=== PATIENT | female | born 1945 | race Two or more races ===

== ENCOUNTER 2018-06-17 13:40 | Emergency (ER) | payer MEDICARE, MEDICAID ==
--- NOTE | 2018-06-17 15:46 | EDM.PDOC ---
ED HPI GENERAL MEDICAL PROBLEM - General Chief Complaint: Lower Extremity Injury/Pain Stated Complaint: LEFT LEG PAIN Time Seen by Provider: 06/17/18 13:55 Source of Information: Reports: Patient History Limitations: Reports: No Limitations - History of Present Illness INITIAL COMMENTS - FREE TEXT/NARRATIVE: c/o L knee pain slipped on ice, able to walk, has pain at patella and lateral joint line pt declined long leg immobilizer of crutches XR with no fx, osteoporosis present PE unremarkable lives with daughter who is gone working during day, grandchildren at school during the day has had other falls in the past labs 03/11 at baseline no other c/o L knee pain Left Knee Pain Score (Numeric/FACES): 10 - Related Data Allergies Allergy/AdvReac Type Severity Reaction Status Date / Time No Known Allergies Allergy Verified 06/17/18 13:46 Home Meds: Home Meds Benzonatate [Tessalon Perle] 100 mg PO TID PRN 03/01/18 [History] Insulin Glarg,Human.Rec.Analog [Lantus] 40 units SQ BEDTIME 03/01/18 [History] Acetaminophen [Tylenol Extra Strength] 500 mg PO ASDIRECTED PRN 03/02/18 [ History] Aspirin [Halfprin] 81 mg PO DAILY 03/02/18 [History] Lisinopril 20 mg PO DAILY 03/02/18 [History] Pregabalin [Lyrica] 150 mg PO DAILY 03/02/18 [History] Pregabalin [Lyrica] 150 mg PO DAILY PRN 03/02/18 [History] traMADol [Ultram] 50 mg PO DAILY PRN 03/02/18 [History] Past Medical History Cardiovascular History: Reports: Hypertension Genitourinary History: Reports: Chronic Renal Insuffiency, Renal Calculus Musculoskeletal History: Reports: Back Pain, Chronic, Osteoarthritis Neurological History: Reports: Neuropathy, Peripheral, Other (See Below) Psychiatric History: Reports: Depression Endocrine/Metabolic History: Reports: Diabetes, Type II - Past Surgical History GI Surgical History: Reports: Cholecystectomy Social & Family History - Family History Family Medical History: Noncontributory - Tobacco Use Smoking Status *Q: Never Smoker - Caffeine Use Caffeine Use: Reports: Coffee Other Caffeine Use: 2-3 cups daily - Recreational Drug Use Recreational Drug Use: No Review of Systems - Review of Systems Review Of Systems: See Below Constitutional: Reports: No Symptoms Eyes: Reports: No Symptoms Ears: Reports: No Symptoms Nose: Reports: No Symptoms Mouth/Throat: Reports: No Symptoms Respiratory: Reports: No Symptoms Cardiovascular: Reports: No Symptoms GI/Abdominal: Reports: No Symptoms Genitourinary: Reports: No Symptoms Musculoskeletal: Reports: Other (L knee pain) Skin: Reports: No Symptoms Neurological: Reports: No Symptoms Psychiatric: Reports: No Symptoms ED EXAM, GENERAL - Physical Exam Exam: See Below Exam Limited By: No Limitations General Appearance: Alert, WD/WN, No Apparent Distress Eye Exam: Bilateral Eye: Normal Inspection Nose: Normal Inspection, Normal Mucosa, No Blood Throat/Mouth: Normal Inspection, Normal Lips, Normal Voice Respiratory/Chest: No Respiratory Distress Cardiovascular: Regular Rate, Rhythm Extremities: Other (L knee with mild tender over patella and laterally over joint line, did appear to be tender over insertion of LCL or MCL, no effusion, no ecchymosis, no STS, XR neg) Neurological: Alert, Oriented, CN II-XII Intact, Normal Cognition, No Motor/ Sensory Deficits Psychiatric: Normal Affect, Normal Mood Skin Exam: Warm, Dry, Intact, Normal Color, No Rash Lymphatic: No Adenopathy Course - Vital Signs Last Recorded V/S: Last Vital Signs Temp 36.3 C 06/17/18 13:48 Pulse 65 06/17/18 13:48 Resp 14 06/17/18 13:48 BP 150/62 H 06/17/18 13:48 Pulse Ox 100 06/17/18 13:48 - Orders/Labs/Meds Orders: Active Orders 24 hr Category Date Time Status Knee 3V Lt [CR] Stat Exams 06/17/18 13:42 Taken - Re-Assessments/Exams Free Text/Narrative Re-Assessment/Exam: 06/17/18 15:56 pt has a rolling walker at home, pt declined knee immobilizer initially, then agreed to do so at insistence of daughter, agrees to see ortho Dr Roque in 4 days, 6" Moises already applied, may use immobilizer over Moises, must use immobilizer when out of bed, pt understands Departure - Departure Time of Disposition: 15:41 Disposition: Home, Self-Care 01 Condition: Good Clinical Impression: Contusion of left knee, Left knee sprain - Discharge Information *PRESCRIPTION DRUG MONITORING PROGRAM REVIEWED*: Not Applicable *COPY OF PRESCRIPTION DRUG MONITORING REPORT IN PATIENT KEON: Not Applicable Instructions: Contusion, Knee Sprain, Adult Referrals: Ritika Wright NP [Primary Care Provider] - Additional Instructions: For pain and inflammation, take acetaminophen 500 mg 2 tas 4 times a day for 5 days. Use ice for 15 minutes 4 times a day for 2 days. Use Moises wrap to support knee when out of bed. Use a walker or a cane for 5 days to allow it to heal and to decrease risk of falling. See your doctor in 4 days. Return to ED if feeling worse. - My Orders Last 24 Hours: My Active Orders 06/17/18 13:42 Knee 3V Lt [CR] Stat - Assessment/Plan Last 24 Hours: My Active Orders 06/17/18 13:42 Knee 3V Lt [CR] Stat
--- NOTE | 2018-06-18 08:09 | CR ---
INDICATION: Fell on ice. Left knee pain. LEFT KNEE: Three views of the left knee revealed mild hypertrophic degenerative changes at the intercondylar spines medially off the femur and tibia and also at the patellofemoral joint. Patellofemoral joint space was not well delineated on the sunrise view but appear to be normal on the lateral view. Patellofemoral joint spaces appear to be normal as visualized. There is also noted a spur off the cranial anterior aspect of the patella of small size. An acute fracture, dislocation or other acute bone or joint abnormality was not identified. IMPRESSION: 1. No acute fracture or dislocation. 2. Osteoarthritis. MTDD
== END 2018-06-17 16:13 | disposition home or self-care (01) ==
LOC: FB.ED 13:40
DX: S83.92XA Sprain of unspecified site of left knee, initial encounter (principal); S80.02XA Contusion of left knee, initial encounter; I12.9 Hypertensive chronic kidney disease with stage 1 through stage 4 chronic kidney disease, or unspecified chronic kidney disease; N18.9 Chronic kidney disease, unspecified; E11.9 Type 2 diabetes mellitus without complications; W00.0XXA Fall on same level due to ice and snow, initial encounter; Z79.4 Long term (current) use of insulin; Z79.899 Other long term (current) drug therapy
CPT/HCPCS: 73562-LT; 99283

== ENCOUNTER 2018-08-01 12:28 | Emergency (ER) | payer MEDICARE, MEDICAID ==
[2018-08-01] MEDS ORDERED: Acetaminophen 325 MG Tab PO STA (12:50)
--- NOTE | 2018-08-01 12:55 | EDM.PDOC ---
ED HPI GENERAL MEDICAL PROBLEM - General Chief Complaint: Respiratory Problem Time Seen by Provider: 08/01/18 12:30 Source of Information: Reports: Patient, Family History Limitations: Reports: Physical Impairment - History of Present Illness INITIAL COMMENTS - FREE TEXT/NARRATIVE: 72 y.o. female came to the ed with her daughter due to a fever of 103 and nasal congestion and gen weakness. Occ cough, chronic abd. discomfort. Pt has sedentary live style. No C/P No N/Vd or any other acute medical issue. 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 - Related Data Allergies Allergy/AdvReac Type Severity Reaction Status Date / Time No Known Allergies Allergy Verified 06/17/18 13:46 Home Meds: Home Meds Benzonatate [Tessalon Perle] 100 mg PO TID PRN 03/01/18 [History] Insulin Glarg,Human.Rec.Analog [Lantus] 40 units SQ BEDTIME 03/01/18 [History] Acetaminophen [Tylenol Extra Strength] 500 mg PO ASDIRECTED PRN 03/02/18 [ History] Aspirin [Halfprin] 81 mg PO DAILY 03/02/18 [History] Lisinopril 20 mg PO DAILY 03/02/18 [History] Pregabalin [Lyrica] 150 mg PO DAILY 03/02/18 [History] Pregabalin [Lyrica] 150 mg PO DAILY PRN 03/02/18 [History] traMADol [Ultram] 50 mg PO DAILY PRN 03/02/18 [History] Oseltamivir [Tamiflu] 75 mg PO BID #10 cap 08/01/18 [Rx] Past Medical History Cardiovascular History: Reports: Hypertension Genitourinary History: Reports: Chronic Renal Insuffiency, Renal Calculus Musculoskeletal History: Reports: Back Pain, Chronic, Osteoarthritis Neurological History: Reports: Neuropathy, Peripheral, Other (See Below) Psychiatric History: Reports: Depression Endocrine/Metabolic History: Reports: Diabetes, Type II - Past Surgical History GI Surgical History: Reports: Cholecystectomy Social & Family History - Family History Family Medical History: Noncontributory - Caffeine Use Caffeine Use: Reports: Coffee Other Caffeine Use: 2-3 cups daily ED ROS GENERAL - Review of Systems Review Of Systems: Unable To Obtain ED EXAM, GENERAL - Physical Exam Exam: See Below Exam Limited By: Physical Impairment General Appearance: Alert, Mild Distress, Obese Eye Exam: Bilateral Eye: Normal Inspection Ears: Normal External Exam Ear Exam: Bilateral Ear: Auricle Normal Nose: Normal Inspection Throat/Mouth: Normal Lips, Normal Voice, No Airway Compromise Head: Atraumatic, Normocephalic Neck: Normal Inspection, Supple, Non-Tender, Full Range of Motion Respiratory/Chest: No Respiratory Distress, Decreased Breath Sounds Cardiovascular: Normal Peripheral Pulses, Regular Rate, Rhythm, No Edema Peripheral Pulses: 2+: Brachial (L) GI/Abdominal: Normal Bowel Sounds, Soft, Non-Tender, No Organomegaly, No Mass, Pelvis Stable (Female) Exam: Deferred Rectal (Female) Exam: Deferred Neurological: Alert, Oriented, CN II-XII Intact Psychiatric: Normal Affect, Normal Mood Skin Exam: Warm, Dry, Intact, Normal Color, No Rash Lymphatic: No Adenopathy Course - Vital Signs Text/Narrative:: 72 y.o. female came to the ed with her daughter due to a fever of 103 and nasal congestion and gen weakness. Occ cough, chronic abd. discomfort. Pt has sedentary live style. No C/P No N/Vd or any other acute medical issue. BP 152/64 Temp 38.1 RR 16 Pulse ox 93% on RA Pulse 93 PE: Obese 72 y.o female with a running nose and cold symptoms Labs: CBC, BMP Bl except HGN 10.6 Cr. 1.6 BUN 24 GFR 32 Influenza A pos, UA neg for UTI Impression: Viral syndrome, Influenza A pos Tx: Tamiflu. Duoneb, Tylenol Reexam: Improved Plan: D/C with instructions Last Recorded V/S: Last Vital Signs Temp 38.2 C H 08/01/18 12:30 Pulse 93 08/01/18 12:30 Resp 16 08/01/18 12:30 BP 152/64 H 08/01/18 12:30 Pulse Ox 93 L 08/01/18 12:30 - Orders/Labs/Meds Orders: Active Orders 24 hr Category Date Time Status RT Aerosol Therapy [RC] ASDIRECTED Care 08/01/18 12:56 Active Chest 1V Frontal [CR] Stat Exams 08/01/18 12:50 Taken CULTURE STREP A CONFIRMATION [] Stat Lab 08/01/18 12:50 Ordered INFLUENZA A+B AG SCREEN [RM] Stat Lab 08/01/18 12:50 Ordered STREP SCRN A RAPID W CULT CONF [] Stat Lab 08/01/18 12:50 Ordered Labs: Laboratory Tests 08/01/18 08/01/18 08/01/18 Range/Units 12:50 13:05 13:05 WBC 7.2 (4.5-12.0) X10-3/uL RBC 3.75 (3.23-5.20) x10(6)uL Hgb 10.6 L (11.5-15.5) g/dL Hct 31.2 (30.0-51.3) % MCV 83.1 (80-96) fL MCH 28.2 (27.7-33.6) pg MCHC 34.0 (32.2-35.4) g/dL RDW 13.1 (11.5-15.5) % Plt Count 226 (125-369) X10(3)uL MPV 9.1 (7.4-10.4) fL Add Manual Diff Yes Neutrophils % (Manual) 79 (46-82) % Lymphocytes % (Manual) 7 L (13-37) % Monocytes % (Manual) 14 H (4-12) % Sodium 136 (135-145) mmol/L Potassium 4.5 (3.5-5.3) mmol/L Chloride 102 D (100-110) mmol/L Carbon Dioxide 25 (21-32) mmol/L BUN 21 H (7-18) mg/dL Creatinine 1.6 H (0.55-1.02) mg/dL Est Cr Clr Drug Dosing TNP Estimated GFR (MDRD) 32 L (>60) BUN/Creatinine Ratio 13.1 (9-20) Glucose 73 L (80-116) mg/dL Lactic Acid (0.4-2.2) mmol/L Calcium 8.7 (8.6-10.2) mg/dL Urine Color Yellow (YELLOW) Urine Appearance Slightly cloudy (CLEAR) Urine pH 6.0 (5.0-6.5) Ur Specific [place] 1.015 (1.010-1.025) Urine Protein 30 H (NEGATIVE) mg/dL Urine Glucose (UA) Normal (NORMAL) mg/dL Urine Ketones Negative (NEGATIVE) mg/dL Urine Occult Blood Moderate H (NEGATIVE) Urine Nitrite Negative (NEGATIVE) Urine Bilirubin Negative (NEGATIVE) Urine Urobilinogen Normal (NEGATIVE) mg/dL Ur Leukocyte Esterase Negative (NEGATIVE) Urine RBC 0-5 (0-5) Urine WBC 0-5 (0-5) Ur Squamous Epith Cells Few H (NS,R,O) Urine Bacteria Moderate H (NS) 08/01/18 Range/Units 13:05 WBC (4.5-12.0) X10-3/uL RBC (3.23-5.20) x10(6)uL Hgb (11.5-15.5) g/dL Hct (30.0-51.3) % MCV (80-96) fL MCH (27.7-33.6) pg MCHC (32.2-35.4) g/dL RDW (11.5-15.5) % Plt Count (125-369) X10(3)uL MPV (7.4-10.4) fL Add Manual Diff Neutrophils % (Manual) (46-82) % Lymphocytes % (Manual) (13-37) % Monocytes % (Manual) (4-12) % Sodium (135-145) mmol/L Potassium (3.5-5.3) mmol/L Chloride (100-110) mmol/L Carbon Dioxide (21-32) mmol/L BUN (7-18) mg/dL Creatinine (0.55-1.02) mg/dL Est Cr Clr Drug Dosing Estimated GFR (MDRD) (>60) BUN/Creatinine Ratio (9-20) Glucose (80-116) mg/dL Lactic Acid 0.6 (0.4-2.2) mmol/L Calcium (8.6-10.2) mg/dL Urine Color (YELLOW) Urine Appearance (CLEAR) Urine pH (5.0-6.5) Ur Specific [place] (1.010-1.025) Urine Protein (NEGATIVE) mg/dL Urine Glucose (UA) (NORMAL) mg/dL Urine Ketones (NEGATIVE) mg/dL Urine Occult Blood (NEGATIVE) Urine Nitrite (NEGATIVE) Urine Bilirubin (NEGATIVE) Urine Urobilinogen (NEGATIVE) mg/dL Ur Leukocyte Esterase (NEGATIVE) Urine RBC (0-5) Urine WBC (0-5) Ur Squamous Epith Cells (NS,R,O) Urine Bacteria (NS) Meds: Medications Discontinued Medications Generic Name Dose Route Start Last Admin Trade Name Patricq PRN Reason Stop Dose Admin Acetaminophen 650 mg 08/01/18 12:50 Tylenol PO 08/01/18 12:51 BEDTIME STA Acetaminophen 650 mg 08/01/18 13:06 08/01/18 13:09 Tylenol PO 08/01/18 13:07 650 mg NOW ONE Administration Albuterol/Ipratropium 3 ml 08/01/18 12:56 08/01/18 12:59 Duoneb 3.0-0.5 Mg/3 Ml NEB 08/01/18 12:57 3 ml ONETIME STA Administration Oseltamivir Phosphate 75 mg 08/01/18 13:53 08/01/18 14:00 Tamiflu PO 08/01/18 13:54 75 mg ONETIME ONE Administration Departure - Departure Time of Disposition: 14:22 Disposition: Home, Self-Care 01 Condition: Good Clinical Impression: Influenza A - Discharge Information Prescriptions: Oseltamivir [Tamiflu] 75 mg PO BID #10 cap Instructions: Influenza, Adult, [id number] Referrals: Ritika Wright NP [Primary Care Provider] - Forms: ED Department Discharge Additional Instructions: Please take Tamiflu as recommended, please follow, come back if your symptoms get worse acutely. - My Orders Last 24 Hours: My Active Orders 08/01/18 12:50 Chest 1V Frontal [CR] Stat CULTURE STREP A CONFIRMATION [RM] Stat INFLUENZA A+B AG SCREEN [RM] Stat STREP SCRN A RAPID W CULT CONF [RM] Stat 08/01/18 12:56 RT Aerosol Therapy [RC] ASDIRECTED - Assessment/Plan Last 24 Hours: My Active Orders 08/01/18 12:50 Chest 1V Frontal [CR] Stat CULTURE STREP A CONFIRMATION [RM] Stat INFLUENZA A+B AG SCREEN [RM] Stat STREP SCRN A RAPID W CULT CONF [RM] Stat 08/01/18 12:56 RT Aerosol Therapy [RC] ASDIRECTED
[2018-08-01] MEDS ORDERED: Albuterol/Ipratropium 3.0-0.5 MG/3 ML Neb Soln NEB STA (12:56)
[2018-08-01] MEDS ORDERED: Acetaminophen 325 MG Tab PO ONE (13:06)
[2018-08-01] MEDS ORDERED: Oseltamivir 75 MG Cap PO ONE (13:53)
== END 2018-08-01 14:30 | disposition home or self-care (01) ==
LOC: FB.ED 12:28
DX: J10.1 Influenza due to other identified influenza virus with other respiratory manifestations (principal); I12.9 Hypertensive chronic kidney disease with stage 1 through stage 4 chronic kidney disease, or unspecified chronic kidney disease; E11.22 Type 2 diabetes mellitus with diabetic chronic kidney disease; N18.9 Chronic kidney disease, unspecified; Z79.4 Long term (current) use of insulin; Z79.899 Other long term (current) drug therapy
CPT/HCPCS: 36415; 71045; 80048; 81001; 83605; 85025; 87081; 87804; 87880; 99283; A9270; J7620-GY

== ENCOUNTER 2018-11-10 12:24 | Emergency (ER) | payer MEDICARE, MEDICAID ==
[2018-11-10] MEDS ORDERED: Ketorolac 30 MG/ML SDV IM ONE (12:41)
--- NOTE | 2018-11-10 12:47 | EDM.PDOC ---
ED HPI GENERAL MEDICAL PROBLEM - General Chief Complaint: Back Pain or Injury Stated Complaint: BACK PAIN Time Seen by Provider: 11/10/18 12:43 Source of Information: Reports: Patient History Limitations: Reports: No Limitations - History of Present Illness INITIAL COMMENTS - FREE TEXT/NARRATIVE: Patient fell while standing on her bed hanging curtains, she lost her balance, bounced off the bed onto the floor. Complains of worsening right low back and hip pain. Denies hematuria or incontinence. The pain does not radiate beyond the hip. 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, Other (see below) (Tramadol) Right low back Pain Score (Numeric/FACES): 10 - Related Data Allergies Allergy/AdvReac Type Severity Reaction Status Date / Time No Known Allergies Allergy Verified 11/10/18 14:48 Home Meds: Home Meds Benzonatate [Tessalon Perle] 100 mg PO TID PRN 03/01/18 [History] Insulin Glarg,Human.Rec.Analog [Lantus] 40 units SQ BEDTIME 03/01/18 [History] Acetaminophen [Tylenol Extra Strength] 500 mg PO ASDIRECTED PRN 03/02/18 [ History] Aspirin [Halfprin] 81 mg PO DAILY 03/02/18 [History] Lisinopril 20 mg PO DAILY 03/02/18 [History] Pregabalin [Lyrica] 150 mg PO DAILY 03/02/18 [History] Pregabalin [Lyrica] 150 mg PO DAILY PRN 03/02/18 [History] traMADol [Ultram] 50 mg PO DAILY PRN 03/02/18 [History] Oseltamivir [Tamiflu] 75 mg PO BID #10 cap 08/01/18 [Rx] Naproxen 250 mg PO BID PRN #20 tablet 11/10/18 [Rx] Past Medical History Cardiovascular History: Reports: Hypertension Genitourinary History: Reports: Chronic Renal Insuffiency, Renal Calculus Other Genitourinary History: Pt tells us she is now stage 4 kidney failure. Musculoskeletal History: Reports: Back Pain, Chronic, Osteoarthritis Neurological History: Reports: Neuropathy, Peripheral, Other (See Below) Psychiatric History: Reports: Depression Endocrine/Metabolic History: Reports: Diabetes, Type II - Past Surgical History GI Surgical History: Reports: Cholecystectomy Social & Family History - Family History Family Medical History: Noncontributory - Caffeine Use Caffeine Use: Reports: Coffee Other Caffeine Use: 2-3 cups daily ED ROS GENERAL - Review of Systems Review Of Systems: ROS reveals no pertinent complaints other than HPI. ED EXAM,LOWER BACK PAIN/INJURY - Physical Exam Exam: See Below Exam Limited By: No Limitations General Appearance: Alert, WD/WN, No Apparent Distress Ears: Normal External Exam Nose: Normal Inspection Throat/Mouth: No Airway Compromise Head: Atraumatic, Normocephalic Neck: Full Range of Motion Respiratory/Chest: No Respiratory Distress, Lungs Clear, Normal Breath Sounds Cardiovascular: Regular Rate, Rhythm, No Murmur GI/Abdominal: Non-Tender Back Exam: Other (moderate tenderness to entire low back, right worse than left) Extremities: Normal Range of Motion, Other (moderate tenderness to right hip) Neurological: Alert, Normal Mood/Affect, No Motor/Sensory Deficits Skin Exam: Warm, Dry, Intact Course - Vital Signs Last Recorded V/S: Last Vital Signs Temp 36.3 C 11/10/18 14:23 Pulse 62 11/10/18 14:23 Resp 14 11/10/18 14:23 BP 159/66 H 11/10/18 14:23 Pulse Ox 100 11/10/18 14:23 - Orders/Labs/Meds Orders: Active Orders 24 hr Category Date Time Status Lumbar Spine wo Cont [CT] Stat Exams 11/10/18 12:42 Taken Pelvis wo Cont [CT] Stat Exams 11/10/18 12:42 Taken Meds: Medications Discontinued Medications Generic Name Dose Route Start Last Admin Trade Name Patricq PRN Reason Stop Dose Admin Ketorolac Tromethamine 30 mg 11/10/18 12:41 11/10/18 13:03 Toradol IM 11/10/18 12:42 30 mg ONETIME ONE Administration - Radiology Interpretation Free Text/Narrative:: L-Spine CT: No acute fracture. Moderate spinal stenosis. Grade 1-2 L4/5 subluxation. L5/S1 disc bulging. Pelvis CT: No acute abnormality. - Re-Assessments/Exams Free Text/Narrative Re-Assessment/Exam: 11/10/18 14:57 Symptoms improved after Toradol 30 mg IM. Departure - Departure Time of Disposition: 14:57 Disposition: Home, Self-Care 01 Condition: Good Clinical Impression: Lumbar strain Qualifiers: Encounter type: initial encounter Qualified Code(s): S39.012A - Strain of muscle, fascia and tendon of lower back, initial encounter - Discharge Information *PRESCRIPTION DRUG MONITORING PROGRAM REVIEWED*: Yes *COPY OF PRESCRIPTION DRUG MONITORING REPORT IN PATIENT KEON: No Prescriptions: Naproxen 250 mg PO BID PRN #20 tablet PRN Reason: Pain Instructions: Lumbosacral Strain Referrals: Ritika Wright NP [Primary Care Provider] - 2 Days Forms: ED Department Discharge Additional Instructions: Fill prescription for Naproxen and take as directed. Continue Tylenol and Tramadol as needed. Follow up with your primary physician in 2 days. Return to the ER if symptoms worsen. - My Orders Last 24 Hours: My Active Orders 11/10/18 12:42 Lumbar Spine wo Cont [CT] Stat Pelvis wo Cont [CT] Stat - Assessment/Plan Last 24 Hours: My Active Orders 11/10/18 12:42 Lumbar Spine wo Cont [CT] Stat Pelvis wo Cont [CT] Stat
== END 2018-11-10 15:12 | disposition home or self-care (01) ==
LOC: FB.ED 12:24
DX: S39.012A Strain of muscle, fascia and tendon of lower back, initial encounter (principal); E11.22 Type 2 diabetes mellitus with diabetic chronic kidney disease; I12.9 Hypertensive chronic kidney disease with stage 1 through stage 4 chronic kidney disease, or unspecified chronic kidney disease; N18.4 Chronic kidney disease, stage 4 (severe); E11.40 Type 2 diabetes mellitus with diabetic neuropathy, unspecified; F32.9 Major depressive disorder, single episode, unspecified; Z79.82 Long term (current) use of aspirin; Z79.4 Long term (current) use of insulin; Z79.899 Other long term (current) drug therapy; W06.XXXA Fall from bed, initial encounter
CPT/HCPCS: 72131; 72192; 96372; 99284-25; J1885

== ENCOUNTER 2018-12-02 21:23 | Emergency (ER) | payer MEDICARE, MEDICAID ==
[2018-12-02] MEDS ORDERED: Acetaminophen/HYDROcodone 325-5 MG Tab PO ONE (21:24)
--- NOTE | 2018-12-02 21:58 | EDM.PDOC ---
ED HPI GENERAL MEDICAL PROBLEM - General Chief Complaint: Back Pain or Injury Stated Complaint: BACK PAIN Time Seen by Provider: 12/02/18 21:55 Source of Information: Reports: Patient, Family History Limitations: Reports: Language Barrier - History of Present Illness INITIAL COMMENTS - FREE TEXT/NARRATIVE: 73 you female with rt flank pain for a few days. Severe pain radiates to the abd ,making it hard to walk or stand straight.She has had multiple falls.OTC meds have not been helpful .Tonight she has No urinary symptoms.Has a h/o HTN,DM and CKD perviously stable. - Related Data Allergies Allergy/AdvReac Type Severity Reaction Status Date / Time No Known Allergies Allergy Verified 11/10/18 14:48 Home Meds: Home Meds Benzonatate [Tessalon Perle] 100 mg PO TID PRN 03/01/18 [History] Insulin Glarg,Human.Rec.Analog [Lantus] 40 units SQ BEDTIME 03/01/18 [History] Acetaminophen [Tylenol Extra Strength] 500 mg PO ASDIRECTED PRN 03/02/18 [ History] Aspirin [Halfprin] 81 mg PO DAILY 03/02/18 [History] Lisinopril 20 mg PO DAILY 03/02/18 [History] Pregabalin [Lyrica] 150 mg PO DAILY 03/02/18 [History] Pregabalin [Lyrica] 150 mg PO DAILY PRN 03/02/18 [History] traMADol [Ultram] 50 mg PO DAILY PRN 03/02/18 [History] Oseltamivir [Tamiflu] 75 mg PO BID #10 cap 08/01/18 [Rx] Naproxen 250 mg PO BID PRN #20 tablet 11/10/18 [Rx] Past Medical History Cardiovascular History: Reports: Hypertension Genitourinary History: Reports: Chronic Renal Insuffiency, Renal Calculus Other Genitourinary History: Pt tells us she is now stage 4 kidney failure. Musculoskeletal History: Reports: Back Pain, Chronic, Osteoarthritis Neurological History: Reports: Neuropathy, Peripheral, Other (See Below) Psychiatric History: Reports: Depression Endocrine/Metabolic History: Reports: Diabetes, Type II - Past Surgical History GI Surgical History: Reports: Cholecystectomy Social & Family History - Family History Family Medical History: Noncontributory - Caffeine Use Caffeine Use: Reports: Coffee Other Caffeine Use: 2-3 cups daily ED ROS GENERAL - Review of Systems Review Of Systems: ROS reveals no pertinent complaints other than HPI. ED EXAM,LOWER BACK PAIN/INJURY - Physical Exam Exam: See Below Exam Limited By: Language Barrier General Appearance: Alert, WD/WN, No Apparent Distress Ears: Normal External Exam Throat/Mouth: Normal Inspection Head: Atraumatic Neck: Normal Inspection GI/Abdominal: Normal Bowel Sounds, Soft, Guarding, Tender. No: Distended, Mass , Hepatomegaly Back Exam: CVA Tenderness (R), Decreased Range of Motion, Paraspinal Tenderness. No: Vertebral Tenderness Extremities: Normal Inspection Skin Exam: Warm Lymphatic: No Adenopathy Course - Orders/Labs/Meds Orders: Active Orders 24 hr Category Date Time Status Abdomen Pelvis wo Cont [CT] Stat Exams 12/02/18 21:33 Ordered Labs: Laboratory Tests 12/02/18 12/02/18 12/02/18 Range/Units 21:50 21:50 22:16 WBC 7.5 (4.5-12.0) X10-3/uL RBC 3.80 (3.23-5.20) x10(6)uL Hgb 11.2 L (11.5-15.5) g/dL Hct 32.4 (30.0-51.3) % MCV 85.1 (80-96) fL MCH 29.3 (27.7-33.6) pg MCHC 34.5 (32.2-35.4) g/dL RDW 13.8 (11.5-15.5) % Plt Count 239 (125-369) X10(3)uL MPV 8.9 (7.4-10.4) fL Neut % (Auto) 66.3 (46-82) % Lymph % (Auto) 24.0 (13-37) % [place] % (Auto) 7.9 (4-12) % Eos % (Auto) 1 (1.0-5.0) % Baso % (Auto) 1 (0-2) % Neut # (Auto) 5.0 (1.6-8.3) # Lymph # (Auto) 1.8 (0.6-5.0) # [place] # (Auto) 0.6 (0.0-1.3) # Eos # (Auto) 0.1 (0.0-0.8) # Baso # (Auto) 0.0 (0.0-0.2) # Sodium 141 (135-145) mmol/L Potassium 4.8 (3.5-5.3) mmol/L Chloride 106 (100-110) mmol/L Carbon Dioxide 29 (21-32) mmol/L BUN 29 H (7-18) mg/dL Creatinine 1.8 H (0.55-1.02) mg/dL Est Cr Clr Drug Dosing TNP Estimated GFR (MDRD) 28 L (>60) BUN/Creatinine Ratio 16.1 (9-20) Glucose 282 H D (80-116) mg/dL Calcium 9.3 (8.6-10.2) mg/dL Total Bilirubin 0.3 (0.1-1.3) mg/dL AST 15 (5-25) IU/L ALT 23 (12-36) U/L Alkaline Phosphatase 106 (56-112) IU/L Total Protein 7.7 (6.0-8.0) g/dL Albumin 3.3 (3.2-4.6) g/dL Globulin 4.4 g/dL Albumin/Globulin Ratio 0.8 Amylase 89 (25-115) U/L Urine Color Yellow (YELLOW) Urine Appearance Slightly cloudy (CLEAR) Urine pH 6.0 (5.0-6.5) Ur Specific [place] 1.020 (1.010-1.025) Urine Protein 30 H (NEGATIVE) mg/dL Urine Glucose (UA) >1000 H (NORMAL) mg/dL Urine Ketones Negative (NEGATIVE) mg/dL Urine Occult Blood Trace (NEGATIVE) Urine Nitrite Negative (NEGATIVE) Urine Bilirubin Negative (NEGATIVE) Urine Urobilinogen Normal (NEGATIVE) mg/dL Ur Leukocyte Esterase Negative (NEGATIVE) Meds: Medications Discontinued Medications Generic Name Dose Route Start Last Admin Trade Name Freq PRN Reason Stop Dose Admin Hydromorphone HCl 2 mg 12/02/18 22:59 12/02/18 23:08 Dilaudid IM 12/02/18 23:00 2 mg ONETIME ONE Administration Departure - Departure Time of Disposition: 23:36 Disposition: Home, Self-Care 01 Condition: Good Clinical Impression: Lumbar back pain - Discharge Information Referrals: Ritika Aleman NP [Primary Care Provider] - Forms: ED Department Discharge - Problem List & Annotations (1) Chronic low back pain SNOMED Code(s): 537173677 Code(s): M54.5 - LOW BACK PAIN; G89.29 - OTHER CHRONIC PAIN Status: Acute Current Visit: No Annotation/Comment:: I will provide analgesic medication tonight, and ask Hospitalist to see in the am. Qualifiers: Back pain laterality: bilateral Sciatica presence: unspecified whether sciatica present Qualified Code(s): M54.5 - Low back pain; G89.29 - Other chronic pain (2) DM2 (diabetes mellitus, type 2) SNOMED Code(s): 44748822 Code(s): E11.9 - TYPE 2 DIABETES MELLITUS WITHOUT COMPLICATIONS Status: Acute Current Visit: No Annotation/Comment:: Continue current outpatient meds. (3) Fracture of lumbar spine SNOMED Code(s): 084732076 Code(s): S32.009A - UNSP FRACTURE OF UNSP LUMBAR VERTEBRA, INIT FOR CLOS FX Status: Acute Current Visit: Yes Qualifiers: Encounter type: initial encounter Lumbar vertebra fracture level: L1 Fracture type: closed Fracture morphology: other fracture Qualified Code(s) : S32.018A - Other fracture of first lumbar vertebra, initial encounter for closed fracture - Problem List Review Problem List Initiated/Reviewed/Updated: Yes - My Orders Last 24 Hours: My Active Orders 12/02/18 21:33 Abdomen Pelvis wo Cont [CT] Stat - Assessment/Plan Last 24 Hours: My Active Orders 12/02/18 21:33 Abdomen Pelvis wo Cont [CT] Stat Plan: CT showed subacute L1 endplate fracture. She improved mardedly with Dilaudid 2 mg IM. I recommend followup with Chasidy aleman next week.
[2018-12-02] MEDS ORDERED: HYDROmorphone 2 MG/ML SDV IM ONE (22:59)
== END 2018-12-02 23:50 | disposition home or self-care (01) ==
LOC: FB.ED 21:23
DX: S32.019A Unspecified fracture of first lumbar vertebra, initial encounter for closed fracture (principal); I12.9 Hypertensive chronic kidney disease with stage 1 through stage 4 chronic kidney disease, or unspecified chronic kidney disease; N18.4 Chronic kidney disease, stage 4 (severe); E11.22 Type 2 diabetes mellitus with diabetic chronic kidney disease; Z90.49 Acquired absence of other specified parts of digestive tract; Z79.82 Long term (current) use of aspirin; Z79.899 Other long term (current) drug therapy; W19.XXXA Unspecified fall, initial encounter
CPT/HCPCS: 36415; 74176; 80053; 81003; 82150; 85025; 96372; 99284; A9270; J1170; 99283

== ENCOUNTER 2018-12-07 14:40 | Inpatient (IN) | payer MEDICARE, MEDICAID ==
[2018-12-07] MEDS ORDERED: Benzonatate 100 MG Cap PO PRN (16:28)
[2018-12-07] MEDS ORDERED: Bisacodyl 5 MG Tab PO PRN (16:47)
--- NOTE | 2018-12-07 16:57 | PCM.HP ---
H&P History of Present Illness - General Date of Service: 12/07/18 Admit Problem/Dx: Admission Diagnosis/Problem Admission Diagnosis/Problem Rehabilitation therapy Source of Information: Patient, Old Records History Limitations: Reports: No Limitations - History of Present Illness Initial Comments - Free Text/Narative: Patient is a 73 yr old female who sustained a closed compression fracture of L1 vertebrae a week ago while hanging curtains at her home. She lost her balance, hit the bed and then landed on the floor. She has been at [facility] since the injury and comes today for rehab therapy with PT/OT for balance, strengthening and ADLs. She was fitted for brace and had it adjusted to fit today. Her pain management has been hydrocodone/APAP along with gabapentin along with her home Lyrica. She reports not needing any IV pain medications. Her dose of Lantus was increased to 40 units at bedtime and was on a NovoLog sliding scale while hospitalized. She did have CT Head while in [place] which documentation that was sent reports it was negative. - Related Data Allergies/Adverse Reactions: Allergies Allergy/AdvReac Type Severity Reaction Status Date / Time No Known Allergies Allergy Verified 12/03/18 02:11 Home Medications: Home Meds Benzonatate [Tessalon Perle] 100 mg PO TID PRN 03/01/18 [History] Insulin Glarg,Human.Rec.Analog [Lantus] 40 units SQ BEDTIME 03/01/18 [History] Acetaminophen [Tylenol Extra Strength] 1,000 mg PO TID 03/02/18 [History] Aspirin [Halfprin] 81 mg PO DAILY 03/02/18 [History] Lisinopril 20 mg PO DAILY 03/02/18 [History] Baclofen 2.5 mg PO TID 12/07/18 [History] Docusate Sodium 100 mg PO BID 12/07/18 [History] Gabapentin [Neurontin] 200 mg PO TID 12/07/18 [History] Hydrocodone/Acetaminophen [[place] 10-325 Tablet] 1 tab PO Q6H PRN 12/07/18 [ History] Latanoprost [Xalatan] 1 drop EYEBOTH BEDTIME 12/07/18 [History] Polyethylene Glycol 3350 [MiraLAX] 17 gm PO BID 12/07/18 [History] Pregabalin [Lyrica] 150 mg PO BID 12/07/18 [History] Propylene Glycol [Systane Balance] 1 drop EYEBOTH Q4H PRN 12/07/18 [History] Past Medical History Cardiovascular History: Reports: Hypertension Other Gastrointestinal History: Periumbilicial hernia Genitourinary History: Reports: Chronic Renal Insuffiency, Renal Calculus Other Genitourinary History: Pt tells us she is now stage 4 kidney failure. 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 Denies: Ear Pain, Rhinitis, Post Nasal Drip, Sinus Congestion, Sore Throat Pulmonary: Denies: Shortness of Breath, Wheezing, Cough Cardiovascular: Denies: Chest Pain, Palpitations, Edema Gastrointestinal: Reports: Constipation. Denies: Abdominal Pain, Black Stool, Bloody Stool, Diarrhea, Nausea, Vomiting Genitourinary: Denies: Dysuria, Frequency, Hematuria Musculoskeletal: Reports: Back Pain, Leg Pain Skin: Denies: Diaphoresis, Bruising Psychiatric: Denies: Confusion Neurological: Denies: Dizziness Exam - Exam Exam: See Below - Exam General: Alert, Oriented, Cooperative HEENT: PERRLA, Conjunctiva Clear, EOMI, Hearing Intact, Mucosa Moist & [place], Nares Patent, Normal Nasal Septum, Posterior Pharynx Clear, TMs Clear, Glasses. No: Scleral Icterus Neck: Supple, Trachea Midline. No: Lymphadenopathy Lungs: Clear to Auscultation, Normal Respiratory Effort Cardiovascular: Regular Rate, Regular Rhythm GI/Abdominal Exam: Normal Bowel Sounds, Soft, Non-Tender, No Distention Extremities: Normal Inspection, No Pedal Edema Peripheral Pulses: 2+: Posterior Tibial (L), Posterior Tibial (R), Dorsalis Pedis (L), Dorsalis Pedis (R) Skin: Warm, Dry, Intact Neuro Extensive - Mental Status: Alert, Oriented x3 Psychiatric: Normal Affect - Problem List (1) Closed compression fracture of body of first lumbar vertebra SNOMED Code(s): 527466107, [id number] ICD Code: S32.010A - WEDGE COMPRESSION FRACTURE OF FIRST LUMBAR VERTEBRA, INIT Status: Acute Current Visit: Yes Onset Date: ~11/30/18 (2) Hypertension SNOMED Code(s): 69281645 ICD Code: I10 - ESSENTIAL (PRIMARY) HYPERTENSION Status: Chronic Current Visit: Yes Qualifiers: Hypertension type: essential hypertension Qualified Code(s): I10 - Essential (primary) hypertension (3) Constipation SNOMED Code(s): 51992386 ICD Code: K59.00 - CONSTIPATION, UNSPECIFIED Status: Acute Current Visit : Yes Problem Details: Chronic, also secondary to narcotics Qualifiers: Constipation type: unspecified constipation type Qualified Code(s): K59.00 - Constipation, unspecified (4) DM2 (diabetes mellitus, type 2) SNOMED Code(s): 55534899 ICD Code: E11.9 - TYPE 2 DIABETES MELLITUS WITHOUT COMPLICATIONS Status: Chronic Current Visit: No Problem Details: Continue current outpatient meds. Qualifiers: Diabetes mellitus ferry terminal agent insulin use: with residential use Diabetic retinopathy severity: with mild nonproliferative retinopathy Diabetes mellitus macular edema: without macular edema (5) Chronic kidney disease, stage 4 (severe) SNOMED Code(s): 465866208 ICD Code: N18.4 - CHRONIC KIDNEY DISEASE, STAGE 4 (SEVERE) Status: Acute Current Visit: Yes (6) DVT prophylaxis SNOMED Code(s): 363766246, 208978337 ICD Code: FQI0953 - Status: Acute Current Visit: No Problem Details: Ambulation. Roel Oconnor Problem List Initiated/Reviewed/Updated: Yes Orders Last 24hrs: Active Orders 24 hr Category Date Time Status Patient Status [ADT] Routine ADT 12/07/18 16:19 Active Ambulate [RC] ASDIRECTED Care 12/07/18 16:19 Active Blood Glucose Check, Bedside [RC] WITHMEALSANDBED Care 12/07/18 16:19 Active Communication Order [RC] PRN Care 12/07/18 16:19 Active Diabetes Education [RC] Click to Edit Care 12/07/18 16:23 Active Height and Weight [RC] WEEKLY Care 12/07/18 16:19 Active May Shower [RC] ASDIRECTED Care 12/07/18 16:19 Active Notify Provider Vital Signs [RC] ASDIRECTED Care 12/07/18 16:22 Active Notify Provider [RC] PRN Care 12/07/18 16:27 Active Oxygen Therapy [RC] PRN Care 12/07/18 16:19 Active Up ad Aide [RC] ASDIRECTED Care 12/07/18 16:19 Active VTE/DVT Education [RC] Per Unit Routine Care 12/07/18 16:19 Active Vital Signs [RC] PER UNIT ROUTINE Care 12/07/18 16:19 Active OT Evaluation and Treatment [CONS] Routine Cons 12/07/18 16:19 Active PT Evaluation and Treatment [CONS] Routine Cons 12/07/18 16:19 Active Consistent Carbohydrate Diet [DIET] Diet 12/07/18 Dinner Active Acetaminophen [Tylenol Extra Strength] Med 12/07/18 21:00 Active 1,000 mg PO TID Acetaminophen/HYDROcodone [[place] 325-10 MG] Med 12/07/18 16:28 Active 1 tab PO Q6H PRN Baclofen [Lioresal] Med 12/07/18 21:00 Active 2.5 mg PO TID Benzonatate [Tessalon Perles] Med 12/07/18 16:28 Active 100 mg PO TID PRN Bisacodyl [Dulcolax] Med 12/07/18 16:47 Ordered 5 mg PO DAILY PRN Docusate Sodium [Colace] Med 12/07/18 16:30 Active 100 mg PO BID Enoxaparin [Lovenox] Med 12/07/18 16:30 Ordered 40 mg SUBCUT Q12HR Gabapentin [Neurontin] Med 12/07/18 21:00 Active 200 mg PO TID Insulin Glarg,Human.Rec.Analog [Lantus] Med 12/07/18 21:00 Ordered 40 units SQ BEDTIME Insulin Lispro [HumaLOG] Med 12/07/18 18:00 Ordered 1 unit SUBCUT TIDMEALS Latanoprost [Xalatan 0.005% Ophth Soln] Med 12/07/18 21:00 Ordered DOSE ml EYEBOTH BEDTIME Lisinopril [Prinivil] Med 12/08/18 09:00 Active 20 mg PO DAILY Polyethylene Glycol 3350 [MiraLAX] Med 12/07/18 21:00 Active 17 gm PO BID Pregabalin [Lyrica] Med 12/07/18 21:00 Ordered 150 mg PO BID Propylene Glycol [Systane Balance] Med 12/07/18 16:28 Ordered DOSE ml EYEBOTH Q4H PRN Saccharomyces Boulardii [Florastor] Med 12/07/18 17:00 Ordered 250 mg PO BID Antiembolic Hose [OM.PC] Per Unit Routine Oth 12/07/18 16:24 Ordered Glucose Management Sub Q Reflex [OM.PC] WITHMEALSANDBED Oth 12/07/18 18:00 Ordered Glucose Management Sub Q Reflex [OM.PC] WITHMEALSANDBED Oth 12/07/18 21:00 Ordered Resuscitation Status Routine Resus Stat 12/07/18 16:19 Ordered Medication Orders Acetaminophen (Tylenol Extra Strength) 1,000 mg PO TID EDSON Hydrocodone Bitart/Acetaminophen ([place] 325-10 Mg) 1 tab PO Q6H PRN PRN Reason: MODERATE/SEVERE PAIN Baclofen (Lioresal) 2.5 mg PO TID EDSON Benzonatate (Tessalon Perles) 100 mg PO TID PRN PRN Reason: Cough Docusate Sodium (Colace) 100 mg PO BID EDSON Enoxaparin Sodium (Lovenox) 40 mg SUBCUT Q12HR EDSON Gabapentin (Neurontin) 200 mg PO TID EDSON Insulin Glargine (Lantus Solostar) 40 units SUBCUT BEDTIME EDSON Insulin Human Lispro (Humalog) 0 unit SUBCUT TIDMEALS EDSON; Protocol Latanoprost (Xalatan 0.005% Ophth Soln) 0 ml EYEBOTH BEDTIME EDSON Lisinopril (Prinivil) 20 mg PO DAILY EDSON Polyethylene Glycol (Miralax) 17 gm PO BID EDSON Pregabalin (Lyrica) 150 mg PO BID EDSON Propylene Glycol (Systane Balance) ml EYEBOTH Q4H PRN PRN Reason: Dry Eyes Assessment/Plan Comment:: 1. Admit for swing bed care. 2. PT/OT evaluate & treat for balance, strengthening, and ADLs, has 15 stairs at home, ambulated 160 feet at [facility]. 3. Diabetes: Continue Lantus 40 units at bedtime, Humalog low dose sliding scale with glucose checks with meals and at bedtime. Consistent carb diet. 4. Hypertension: continue home medications. 5. Pain management: Continue hydrocodone/Apap, Baclofen, Gabapentin and Lyrica per discharge instructions from [facility]. 6. Bowel regiment: MiraLAX bid, Docusate bid, Florastor bid, Dulcolax daily as needed, will adjust treatment as needed. 7. May go out on pass to appointments as needed. 8. Full code. 9. DVT prophylaxis: Lovenox SQ daily per pharmacy, check CBC & BMP tonight.
[2018-12-07] MEDS: Acetaminophen/HYDROcodone 325-10 MG Tab PO PRN (17:40)
[2018-12-07] MEDS: Docusate Sodium 100 MG Cap PO SCH ×2 (17:40→21:24)
[2018-12-07] MEDS: Insulin Lispro 100 Unit/ML 3 ML KwikPen SUBCUT SCH (17:53)
[2018-12-07] MEDS ORDERED: Enoxaparin 40 MG/0.4 ML Syringe SUBCUT SCH (21:00)
[2018-12-07] MEDS: Baclofen 10 MG Tab PO SCH (21:24)
[2018-12-07] MEDS: Pregabalin 75 MG Cap PO SCH (21:24)
[2018-12-07] MEDS: Saccharomyces Boulardii (Probiotic) 250 MG Cap PO SCH (21:24)
[2018-12-07] MEDS: Acetaminophen 500 MG Tab PO SCH (21:25)
[2018-12-07] MEDS: Polyethylene Glycol 3350 Powder 17 GM Packet PO SCH (21:25)
[2018-12-07] MEDS: Latanoprost 0.005% Ophth Soln 2.5 ML Bottle EYEBOTH SCH (21:25)
[2018-12-07] MEDS: Gabapentin 100 MG Cap PO SCH (21:25)
[2018-12-07] MEDS: Insulin Glargine,Human Rec. Analog 100 Units/ML 3 ML Pen SUBCUT SCH (21:41)
[2018-12-08] MEDS: Acetaminophen/HYDROcodone 325-10 MG Tab PO PRN (03:51)
[2018-12-08] MEDS: Insulin Lispro 100 Unit/ML 3 ML KwikPen SUBCUT SCH ×3 (08:04→18:12)
--- NOTE | 2018-12-08 08:55 | PCM.PN ---
- General Info Date of Service: 12/08/18 Subjective Update: Patient had malodorous urine noted this morning by staff. She denies any dysuria , increased frequency or blood. No fevers, or chills. No nausea or vomiting. Having pain on right lumbar area. Back brace is off while in bed. - Patient Data Vitals - Most Recent: Last Vital Signs Temp 36.6 C 12/07/18 16:28 Pulse 70 12/07/18 21:55 Resp 16 12/07/18 21:55 BP 108/68 12/07/18 21:55 Pulse Ox 97 12/07/18 21:55 Weight - Most Recent: 98.883 kg Lab Results Last 24 Hours: Laboratory Results - last 24 hr 12/07/18 12/07/18 12/07/18 Range/Units 17:25 17:25 21:37 WBC 8.1 (4.5-12.0) X10-3/uL RBC 3.65 (3.23-5.20) x10(6)uL Hgb 10.4 L (11.5-15.5) g/dL Hct 31.3 (30.0-51.3) % MCV 85.8 (80-96) fL MCH 28.4 (27.7-33.6) pg MCHC 33.1 (32.2-35.4) g/dL RDW 14.0 (11.5-15.5) % Plt Count 228 (125-369) X10(3)uL MPV 9.1 (7.4-10.4) fL Neut % (Auto) 52.0 (46-82) % Lymph % (Auto) 31.9 (13-37) % Oliver % (Auto) 10.2 (4-12) % Eos % (Auto) 5 (1.0-5.0) % Baso % (Auto) 1 (0-2) % Neut # (Auto) 4.3 (1.6-8.3) # Lymph # (Auto) 2.6 (0.6-5.0) # Oliver # (Auto) 0.8 (0.0-1.3) # Eos # (Auto) 0.4 (0.0-0.8) # Baso # (Auto) 0.0 (0.0-0.2) # Sodium 134 L (135-145) mmol/L Potassium 5.3 (3.5-5.3) mmol/L Chloride 101 D (100-110) mmol/L Carbon Dioxide 29 (21-32) mmol/L BUN 45 H D (7-18) mg/dL Creatinine 1.8 H (0.55-1.02) mg/dL Est Cr Clr Drug Dosing 20.59 mL/min Estimated GFR (MDRD) 28 L (>60) BUN/Creatinine Ratio 25.0 H (9-20) Glucose 147 H D (80-116) mg/dL POC Glucose 138 H (80-116) mg/dL Calcium 8.9 (8.6-10.2) mg/dL Med Orders - Current: Current Medications Acetaminophen (Tylenol Extra Strength) 1,000 mg PO TID [facility] Last Admin: 12/07/18 21:25 Dose: 1,000 mg Hydrocodone Bitart/Acetaminophen ([place] 325-10 Mg) 1 tab PO Q6H PRN PRN Reason: MODERATE/SEVERE PAIN Last Admin: 12/08/18 03:51 Dose: 1 tab Baclofen (Lioresal) 2.5 mg PO TID [facility] Last Admin: 12/07/18 21:24 Dose: 2.5 mg Benzonatate (Tessalon Perles) 100 mg PO TID PRN PRN Reason: Cough Bisacodyl (Dulcolax) 5 mg PO DAILY PRN PRN Reason: Constipation Docusate Sodium (Colace) 100 mg PO BID [facility] Last Admin: 12/07/18 21:24 Dose: 100 mg Enoxaparin Sodium (Lovenox) 30 mg SUBCUT Q24H [facility] Gabapentin (Neurontin) 200 mg PO TID [facility] Last Admin: 12/07/18 21:25 Dose: 200 mg Insulin Glargine (Lantus Solostar) 40 units SUBCUT BEDTIME [facility] Last Admin: 12/07/18 21:41 Dose: 40 unit Insulin Human Lispro (Humalog) 0 unit SUBCUT TIDMEALS [facility]; Protocol Last Admin: 12/08/18 08:04 Dose: Not Given Latanoprost (Xalatan 0.005% Ophth Soln) 0 ml EYEBOTH BEDTIME [facility] Last Admin: 12/07/18 21:25 Dose: 1 drop Lisinopril (Prinivil) 20 mg PO DAILY [facility] Polyethylene Glycol (Miralax) 17 gm PO BID [facility] Last Admin: 12/07/18 21:25 Dose: 17 gm Pregabalin (Lyrica) 150 mg PO BID [facility] Last Admin: 12/07/18 21:24 Dose: 150 mg Propylene Glycol (Systane Balance) 0 ml EYEBOTH Q4H PRN PRN Reason: Dry Eyes Saccharomyces Boulardii (Florastor) 250 mg PO BID [facility] Last Admin: 12/07/18 21:24 Dose: 250 mg Discontinued Medications Enoxaparin Sodium (Lovenox) 40 mg SUBCUT Q12H [facility] Last Admin: 12/07/18 21:50 Dose: 40 mg - Exam General: Alert, Oriented Lungs: Clear to Auscultation, Normal Respiratory Effort Cardiovascular: Regular Rate, Regular Rhythm GI/Abdominal Exam: Normal Bowel Sounds, Soft, Non-Tender Extremities: No Pedal Edema - Problem List & Annotations (1) Closed compression fracture of body of first lumbar vertebra SNOMED Code(s): 494029415, 827543759 Code(s): S32.010A - WEDGE COMPRESSION FRACTURE OF FIRST LUMBAR VERTEBRA, INIT Status: Acute Current Visit: Yes Onset Date: ~11/30/18 (2) Hypertension SNOMED Code(s): 63631025 Code(s): I10 - ESSENTIAL (PRIMARY) HYPERTENSION Status: Chronic Current Visit: Yes Qualifiers: Hypertension type: essential hypertension Qualified Code(s): I10 - Essential (primary) hypertension (3) Constipation SNOMED Code(s): 42292442 Code(s): K59.00 - CONSTIPATION, UNSPECIFIED Status: Acute Current Visit: Yes Qualifiers: Constipation type: unspecified constipation type Qualified Code(s): K59.00 - Constipation, unspecified Annotation/Comment:: Chronic, also secondary to narcotics (4) DM2 (diabetes mellitus, type 2) SNOMED Code(s): 56559612 Code(s): E11.9 - TYPE 2 DIABETES MELLITUS WITHOUT COMPLICATIONS Status: Chronic Current Visit: No Qualifiers: Diabetes mellitus assisted insulin use: with assisted use Diabetic retinopathy severity: with mild nonproliferative retinopathy Diabetes mellitus macular edema: without macular edema Annotation/Comment:: Continue current outpatient meds. (5) Chronic kidney disease, stage 4 (severe) SNOMED Code(s): 744878842 Code(s): N18.4 - CHRONIC KIDNEY DISEASE, STAGE 4 (SEVERE) Status: Acute Current Visit: Yes (6) DVT prophylaxis SNOMED Code(s): 391386899, 921185571 Code(s): QQN1700 - Status: Acute Current Visit: No Annotation/Comment: : Ambulation. Roel Oconnor hose - Problem List Review Problem List Initiated/Reviewed/Updated: Yes - My Orders Last 24 Hours: My Active Orders 12/07/18 16:19 Patient Status [ADT] Routine Ambulate [RC] ASDIRECTED Blood Glucose Check, Bedside [RC] WITHMEALSANDBED Communication Order [RC] PRN Height and Weight [RC] WEEKLY May Shower [RC] ASDIRECTED Up ad Aide [RC] ASDIRECTED VTE/DVT Education [RC] Per Unit Routine Vital Signs [RC] PER UNIT ROUTINE OT Evaluation and Treatment [CONS] Routine PT Evaluation and Treatment [CONS] Routine Resuscitation Status Routine 12/07/18 16:22 Notify Provider Vital Signs [RC] ASDIRECTED 12/07/18 16:23 Diabetes Education [RC] Click to Edit 12/07/18 16:24 Antiembolic Hose [OM.PC] Per Unit Routine 12/07/18 16:27 Notify Provider [RC] PRN 12/07/18 16:28 Acetaminophen/HYDROcodone [[place] 325-10 MG] 1 tab PO Q6H PRN Benzonatate [Tessalon Perles] 100 mg PO TID PRN Propylene Glycol [Systane Balance] 0 ml EYEBOTH Q4H PRN 12/07/18 16:30 Docusate Sodium [Colace] 100 mg PO BID 12/07/18 16:47 Bisacodyl [Dulcolax] 5 mg PO DAILY PRN 12/07/18 18:00 Insulin Lispro [HumaLOG] 0 unit SUBCUT TIDMEALS Glucose Management Sub Q Reflex [OM.PC] WITHMEALSANDBED 12/07/18 21:00 Acetaminophen [Tylenol Extra Strength] 1,000 mg PO TID Baclofen [Lioresal] 2.5 mg PO TID Gabapentin [Neurontin] 200 mg PO TID Insulin Glarg,Human.Rec.Analog [LantUS Solostar] 40 units SUBCUT BEDTIME Latanoprost [Xalatan 0.005% Ophth Soln] 0 ml EYEBOTH BEDTIME Polyethylene Glycol 3350 [MiraLAX] 17 gm PO BID Pregabalin [Lyrica] 150 mg PO BID Saccharomyces Boulardii [Florastor] 250 mg PO BID Glucose Management Sub Q Reflex [OM.PC] WITHMEALSANDBED 12/07/18 Dinner Consistent Carbohydrate Diet [DIET] 12/08/18 08:28 UA W/MICROSCOPIC [URIN] Routine 12/08/18 09:00 Lisinopril [Prinivil] 20 mg PO DAILY 12/08/18 21:00 Enoxaparin [Lovenox] 30 mg SUBCUT Q24H - Plan Plan:: 1. UA ordered to check for UTI, currently asymptomatic. 2. PT/OT consulted. 3. Will adjust pain medications as needed.
[2018-12-08] MEDS: Baclofen 10 MG Tab PO SCH ×3 (09:25→21:01)
[2018-12-08] MEDS: Lisinopril 20 MG Tab PO SCH (09:25)
[2018-12-08] MEDS: Saccharomyces Boulardii (Probiotic) 250 MG Cap PO SCH ×2 (09:25→21:00)
[2018-12-08] MEDS: Docusate Sodium 100 MG Cap PO SCH ×2 (09:25→21:00)
[2018-12-08] MEDS: Gabapentin 100 MG Cap PO SCH (09:26)
[2018-12-08] MEDS: Acetaminophen 500 MG Tab PO SCH ×3 (09:26→21:01)
[2018-12-08] MEDS: Pregabalin 75 MG Cap PO SCH ×2 (09:26→20:59)
[2018-12-08] MEDS: Polyethylene Glycol 3350 Powder 17 GM Packet PO SCH ×2 (09:27→20:59)
[2018-12-08] MEDS: Insulin Glargine,Human Rec. Analog 100 Units/ML 3 ML Pen SUBCUT SCH (21:00)
[2018-12-08] MEDS ORDERED: Gabapentin 400 MG Cap PO ONE (21:00)
[2018-12-08] MEDS: Enoxaparin 30 MG/0.3 ML Syringe SUBCUT SCH (21:01)
[2018-12-08] MEDS: Latanoprost 0.005% Ophth Soln 2.5 ML Bottle EYEBOTH SCH (21:02)
[2018-12-09] MEDS: Acetaminophen/HYDROcodone 325-10 MG Tab PO PRN ×3 (05:16→17:23)
[2018-12-09] MEDS: Insulin Lispro 100 Unit/ML 3 ML KwikPen SUBCUT SCH ×3 (08:11→18:08)
[2018-12-09] MEDS: Lisinopril 20 MG Tab PO SCH (09:46)
[2018-12-09] MEDS: Docusate Sodium 100 MG Cap PO SCH ×2 (09:46→20:44)
[2018-12-09] MEDS: Baclofen 10 MG Tab PO SCH ×3 (09:46→20:43)
[2018-12-09] MEDS: Saccharomyces Boulardii (Probiotic) 250 MG Cap PO SCH ×2 (09:46→20:44)
[2018-12-09] MEDS: Polyethylene Glycol 3350 Powder 17 GM Packet PO SCH ×2 (09:47→20:42)
[2018-12-09] MEDS: Pregabalin 75 MG Cap PO SCH ×2 (09:47→20:44)
[2018-12-09] MEDS: Acetaminophen 500 MG Tab PO SCH ×3 (09:47→20:43)
[2018-12-09] MEDS: Gabapentin 600 MG Tab PO SCH (20:44)
[2018-12-09] MEDS: Enoxaparin 30 MG/0.3 ML Syringe SUBCUT SCH (20:44)
[2018-12-09] MEDS: Latanoprost 0.005% Ophth Soln 2.5 ML Bottle EYEBOTH SCH (20:45)
[2018-12-09] MEDS: Insulin Glargine,Human Rec. Analog 100 Units/ML 3 ML Pen SUBCUT SCH (20:46)
[2018-12-10] MEDS: Acetaminophen/HYDROcodone 325-10 MG Tab PO PRN (02:26)
[2018-12-10] MEDS: Insulin Lispro 100 Unit/ML 3 ML KwikPen SUBCUT SCH ×3 (07:58→17:36)
[2018-12-10] MEDS: Docusate Sodium 100 MG Cap PO SCH ×2 (08:07→21:31)
[2018-12-10] MEDS: Polyethylene Glycol 3350 Powder 17 GM Packet PO SCH ×2 (08:07→21:32)
[2018-12-10] MEDS: Baclofen 10 MG Tab PO SCH ×3 (08:07→21:31)
[2018-12-10] MEDS: Acetaminophen 500 MG Tab PO SCH ×3 (08:07→21:32)
[2018-12-10] MEDS: Saccharomyces Boulardii (Probiotic) 250 MG Cap PO SCH ×2 (08:07→21:31)
[2018-12-10] MEDS: Pregabalin 75 MG Cap PO SCH ×2 (08:07→21:32)
[2018-12-10] MEDS: Lisinopril 20 MG Tab PO SCH (08:15)
[2018-12-10] MEDS: Enoxaparin 30 MG/0.3 ML Syringe SUBCUT SCH (21:32)
[2018-12-10] MEDS: Gabapentin 600 MG Tab PO SCH (21:32)
[2018-12-10] MEDS: Latanoprost 0.005% Ophth Soln 2.5 ML Bottle EYEBOTH SCH (21:32)
[2018-12-10] MEDS: Insulin Glargine,Human Rec. Analog 100 Units/ML 3 ML Pen SUBCUT SCH (21:33)
[2018-12-11] MEDS: Acetaminophen/HYDROcodone 325-10 MG Tab PO PRN ×2 (05:48→11:20)
[2018-12-11] MEDS: Baclofen 10 MG Tab PO SCH ×3 (08:09→20:53)
[2018-12-11] MEDS: Lisinopril 20 MG Tab PO SCH (08:10)
[2018-12-11] MEDS: Docusate Sodium 100 MG Cap PO SCH ×2 (08:10→20:53)
[2018-12-11] MEDS: Saccharomyces Boulardii (Probiotic) 250 MG Cap PO SCH ×2 (08:10→20:53)
[2018-12-11] MEDS: Polyethylene Glycol 3350 Powder 17 GM Packet PO SCH ×2 (08:10→20:54)
[2018-12-11] MEDS: Acetaminophen 500 MG Tab PO SCH ×3 (08:10→20:54)
[2018-12-11] MEDS: Pregabalin 75 MG Cap PO SCH ×2 (08:18→20:54)
[2018-12-11] MEDS: Insulin Lispro 100 Unit/ML 3 ML KwikPen SUBCUT SCH ×3 (08:18→17:54)
[2018-12-11] MEDS: Gabapentin 600 MG Tab PO SCH (20:54)
[2018-12-11] MEDS: Latanoprost 0.005% Ophth Soln 2.5 ML Bottle EYEBOTH SCH (20:54)
[2018-12-11] MEDS: PROPYLENE GLYCOL 0.6% EYEBOTH PRN (20:55)
[2018-12-11] MEDS: Enoxaparin 30 MG/0.3 ML Syringe SUBCUT SCH (20:55)
[2018-12-11] MEDS: Insulin Glargine,Human Rec. Analog 100 Units/ML 3 ML Pen SUBCUT SCH (20:56)
[2018-12-12] MEDS: Insulin Lispro 100 Unit/ML 3 ML KwikPen SUBCUT SCH ×3 (08:30→17:31)
[2018-12-12] MEDS: Polyethylene Glycol 3350 Powder 17 GM Packet PO SCH ×2 (08:38→20:34)
[2018-12-12] MEDS: Saccharomyces Boulardii (Probiotic) 250 MG Cap PO SCH ×2 (08:41→20:22)
[2018-12-12] MEDS: Lisinopril 20 MG Tab PO SCH (08:41)
[2018-12-12] MEDS: Acetaminophen 500 MG Tab PO SCH ×3 (08:41→20:22)
[2018-12-12] MEDS: Baclofen 10 MG Tab PO SCH ×3 (08:41→20:22)
[2018-12-12] MEDS: Pregabalin 75 MG Cap PO SCH ×2 (08:42→20:30)
[2018-12-12] MEDS: Docusate Sodium 100 MG Cap PO SCH ×2 (08:42→20:22)
[2018-12-12] MEDS: Acetaminophen/HYDROcodone 325-10 MG Tab PO PRN (10:37)
[2018-12-12] MEDS: Enoxaparin 30 MG/0.3 ML Syringe SUBCUT SCH (20:21)
[2018-12-12] MEDS: Insulin Glargine,Human Rec. Analog 100 Units/ML 3 ML Pen SUBCUT SCH (20:30)
[2018-12-12] MEDS: Gabapentin 600 MG Tab PO SCH (20:30)
[2018-12-12] MEDS: Latanoprost 0.005% Ophth Soln 2.5 ML Bottle EYEBOTH SCH (20:40)
[2018-12-13] MEDS: Insulin Lispro 100 Unit/ML 3 ML KwikPen SUBCUT SCH ×3 (08:36→17:39)
[2018-12-13] MEDS: Pregabalin 75 MG Cap PO SCH ×2 (08:39→20:57)
[2018-12-13] MEDS: Baclofen 10 MG Tab PO SCH ×3 (08:39→20:55)
[2018-12-13] MEDS: Saccharomyces Boulardii (Probiotic) 250 MG Cap PO SCH ×2 (08:39→20:54)
[2018-12-13] MEDS: Docusate Sodium 100 MG Cap PO SCH ×2 (08:39→20:53)
[2018-12-13] MEDS: Polyethylene Glycol 3350 Powder 17 GM Packet PO SCH ×2 (08:42→20:56)
[2018-12-13] MEDS: Lisinopril 20 MG Tab PO SCH (08:43)
[2018-12-13] MEDS: Acetaminophen 500 MG Tab PO SCH ×3 (08:43→20:58)
[2018-12-13] MEDS: Acetaminophen/HYDROcodone 325-10 MG Tab PO PRN ×2 (10:28→17:37)
[2018-12-13] MEDS: Enoxaparin 30 MG/0.3 ML Syringe SUBCUT SCH (20:56)
[2018-12-13] MEDS: Gabapentin 600 MG Tab PO SCH (20:58)
[2018-12-13] MEDS: Latanoprost 0.005% Ophth Soln 2.5 ML Bottle EYEBOTH SCH (20:58)
[2018-12-13] MEDS: Naproxen 500 MG Tab PO SCH (21:06)
[2018-12-13] MEDS: Insulin Glargine,Human Rec. Analog 100 Units/ML 3 ML Pen SUBCUT SCH (21:08)
[2018-12-14] MEDS: Acetaminophen/HYDROcodone 325-10 MG Tab PO PRN (04:47)
[2018-12-14] MEDS: Insulin Lispro 100 Unit/ML 3 ML KwikPen SUBCUT SCH ×3 (09:38→20:47)
[2018-12-14] MEDS: Docusate Sodium 100 MG Cap PO SCH ×2 (09:39→20:45)
[2018-12-14] MEDS: Saccharomyces Boulardii (Probiotic) 250 MG Cap PO SCH ×2 (09:39→20:45)
[2018-12-14] MEDS: Polyethylene Glycol 3350 Powder 17 GM Packet PO SCH ×2 (09:40→20:47)
[2018-12-14] MEDS: Baclofen 10 MG Tab PO SCH ×3 (09:40→20:46)
[2018-12-14] MEDS: Pregabalin 75 MG Cap PO SCH ×2 (09:42→20:47)
[2018-12-14] MEDS: Naproxen 500 MG Tab PO SCH (09:44)
[2018-12-14] MEDS: Lisinopril 20 MG Tab PO SCH (09:45)
[2018-12-14] MEDS: Acetaminophen 500 MG Tab PO SCH ×3 (09:45→20:48)
[2018-12-14] MEDS: Enoxaparin 30 MG/0.3 ML Syringe SUBCUT SCH (20:46)
[2018-12-14] MEDS: Gabapentin 600 MG Tab PO SCH (20:48)
[2018-12-14] MEDS: Latanoprost 0.005% Ophth Soln 2.5 ML Bottle EYEBOTH SCH (20:48)
[2018-12-14] MEDS ORDERED: Insulin Glargine,Human Rec. Analog 100 Units/ML 3 ML Pen SUBCUT SCH (21:00)
[2018-12-15] MEDS: Acetaminophen/HYDROcodone 325-10 MG Tab PO PRN ×2 (03:23→16:46)
[2018-12-15] MEDS: Polyethylene Glycol 3350 Powder 17 GM Packet PO SCH ×2 (08:32→20:31)
[2018-12-15] MEDS: Docusate Sodium 100 MG Cap PO SCH ×2 (08:33→20:29)
[2018-12-15] MEDS: Baclofen 10 MG Tab PO SCH ×3 (08:33→20:30)
[2018-12-15] MEDS: Saccharomyces Boulardii (Probiotic) 250 MG Cap PO SCH ×2 (08:33→20:30)
[2018-12-15] MEDS: Insulin Lispro 100 Unit/ML 3 ML KwikPen SUBCUT SCH ×3 (08:34→17:16)
[2018-12-15] MEDS: Acetaminophen 500 MG Tab PO SCH ×3 (08:35→20:32)
[2018-12-15] MEDS: Lisinopril 20 MG Tab PO SCH (08:39)
[2018-12-15] MEDS: Pregabalin 75 MG Cap PO SCH ×2 (08:40→20:31)
[2018-12-15] MEDS: Enoxaparin 30 MG/0.3 ML Syringe SUBCUT SCH (20:31)
[2018-12-15] MEDS: Latanoprost 0.005% Ophth Soln 2.5 ML Bottle EYEBOTH SCH (20:32)
[2018-12-15] MEDS: Gabapentin 600 MG Tab PO SCH (20:32)
[2018-12-15] MEDS ORDERED: Insulin Glargine,Human Rec. Analog 100 Units/ML 3 ML Pen SUBCUT SCH (21:00)
[2018-12-16] MEDS: Pregabalin 75 MG Cap PO SCH ×2 (08:35→20:48)
[2018-12-16] MEDS: Docusate Sodium 100 MG Cap PO SCH ×2 (08:37→20:46)
[2018-12-16] MEDS: Baclofen 10 MG Tab PO SCH ×3 (08:37→20:47)
[2018-12-16] MEDS: Acetaminophen 500 MG Tab PO SCH ×3 (08:37→20:49)
[2018-12-16] MEDS: Saccharomyces Boulardii (Probiotic) 250 MG Cap PO SCH ×2 (08:38→20:46)
[2018-12-16] MEDS: Polyethylene Glycol 3350 Powder 17 GM Packet PO SCH ×2 (08:38→20:48)
[2018-12-16] MEDS: Insulin Lispro 100 Unit/ML 3 ML KwikPen SUBCUT SCH ×3 (08:39→18:35)
[2018-12-16] MEDS: Lisinopril 20 MG Tab PO SCH (08:40)
[2018-12-16] MEDS: PROPYLENE GLYCOL 0.6% EYEBOTH PRN (08:41)
[2018-12-16] MEDS: Enoxaparin 30 MG/0.3 ML Syringe SUBCUT SCH (20:47)
[2018-12-16] MEDS: Gabapentin 600 MG Tab PO SCH (20:48)
[2018-12-16] MEDS: Latanoprost 0.005% Ophth Soln 2.5 ML Bottle EYEBOTH SCH (20:49)
[2018-12-17] MEDS: Insulin Lispro 100 Unit/ML 3 ML KwikPen SUBCUT SCH ×2 (08:47→11:31)
[2018-12-17] MEDS: Acetaminophen/HYDROcodone 325-10 MG Tab PO PRN ×2 (08:52→17:42)
[2018-12-17] MEDS: Saccharomyces Boulardii (Probiotic) 250 MG Cap PO SCH (08:53)
[2018-12-17] MEDS: Pregabalin 75 MG Cap PO SCH ×2 (08:53→20:46)
[2018-12-17] MEDS: Docusate Sodium 100 MG Cap PO SCH (08:54)
[2018-12-17] MEDS: Lisinopril 20 MG Tab PO SCH (08:54)
[2018-12-17] MEDS: Polyethylene Glycol 3350 Powder 17 GM Packet PO SCH ×2 (08:54→20:55)
[2018-12-17] MEDS: Baclofen 10 MG Tab PO SCH (08:54)
[2018-12-17] MEDS: Acetaminophen 500 MG Tab PO SCH ×3 (08:55→20:46)
[2018-12-17] MEDS ORDERED: fentaNYL 12 MCG/HR Transdermal Patch TRDERM SCH (13:15)
--- NOTE | 2018-12-17 13:46 | PN ---
DATE SEEN: 12/17/2018 HISTORY: Ms. Prescott is a 73-year-old woman from [place] with a history of diabetes, diabetic peripheral neuropathy and recent compression fracture of the lumbar spine. This began after 3 different falls at home, one on the ice this spring, a second fall when she was hanging curtains in her bedroom and fell bouncing off the bed on the floor and the third episode where she slipped down 3 stairs in her house. After that, she experienced severe unrelenting pain on the right side in the right sacroiliac area and remains. She was briefly hospitalized overnight at [facility] and sent to swing bed at [facility] here on 12/07/2018, on oral pain medications. Since being here, she has had some low blood sugars because of the dietary change and her usual dose of Lantus 40 units at bedtime was discontinued. She states her pain is slightly better, but she has pain that radiates from the hip to the sacroiliac area when she weight bears on the right leg and if she sits erect in the chair, she will get a lot of pain and has to lean forward sitting over her bedside table. PHYSICAL EXAMINATION: GENERAL: She is alert. She is a good historian and comfortable while sitting leaning forward. Vital Signs: Blood pressure 139/66, pulse 98 and regular, respirations normal, O2 saturation 98% on room air, temp 98.7. SKIN: Shows no rash. She has a large clamshell brace from encompassing her thoracic to lumbar spine. HEART: Regular. LUNGS: Clear in the upper lung prater. I could not hear lower because of the brace in place. ABDOMEN: Soft. EXTREMITIES: No edema. LABORATORY DATA: Glucoses ranged from 56 to 245 in the last 2 days. ASSESSMENT: 1. Lumbar compression fracture, now with oral pain medication and a clamshell brace, pain control not considered adequate. 2. Chronic kidney disease. 3. 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 PLAN: We will avoid any nephrotoxins as able. We will start her on a Duragesic 12 patch and continue her Lyrica and p.r.n. hydrocodone. We will resume Lantus at 20 units at bedtime. Anticipate return to home when she is comfortable. I have sent in a refill for her Contour test strips for her diabetes as well. /[id number] ALLEN/SELVIN
[2018-12-17] MEDS: Enoxaparin 30 MG/0.3 ML Syringe SUBCUT SCH (20:49)
[2018-12-17] MEDS: Latanoprost 0.005% Ophth Soln 2.5 ML Bottle EYEBOTH SCH (20:55)
[2018-12-17] MEDS ORDERED: Insulin Glargine,Human Rec. Analog 100 Units/ML 3 ML Pen SUBCUT SCH (21:00)
[2018-12-18] MEDS: Acetaminophen/HYDROcodone 325-10 MG Tab PO PRN (06:48)
[2018-12-18] MEDS: Polyethylene Glycol 3350 Powder 17 GM Packet PO SCH (08:09)
[2018-12-18] MEDS: Acetaminophen 500 MG Tab PO SCH (08:09)
[2018-12-18] MEDS: Lisinopril 20 MG Tab PO SCH (08:09)
[2018-12-18] MEDS: Pregabalin 75 MG Cap PO SCH (08:09)
--- NOTE | 2018-12-18 18:06 | DISCH ---
DISCHARGE DATE: 12/18/2018 HISTORY OF PRESENT ILLNESS: Ms. Prescott is a 73-year-old woman with type 2 diabetes. She sustained a lumbar compression fracture after 3 falls at her home starting back with ice on the ground early spring. She had failed outpatient pain management. She was sent to the ER at [facility] in [place], where she was admitted overnight and discharged on oral pain medication to [facility] swing bed. She arrived to our swing bed at [facility] in [place] on 12/07/2018. She has been on analgesics since that time. Her diabetes has been managed with insulin and her activities slowly increased. She is now deemed ready for discharge to home today. PHYSICAL EXAMINATION: She is alert and comfortable while lying. She says she gets pain when she is standing when she got up to go to the bathroom. She says when she puts weight on her right leg, she has significant pain in the right sacroiliac area. A Duragesic patch was added yesterday, which seems to provided additional pain relief. Accu-Cheks during admission remained in the 100 to 250 range with significant fluctuations. She did have a low of 56 a couple of days prior to admission and her Lantus was held using only sliding scale insulin. She has now been returned to 20 units of Lantus at bedtime half of her normal dose of 40 units. I anticipate when she gets back to a regular diet, this will have to be increased. MEDICATIONS ON DISCHARGE: 1. Duragesic 12 mcg patch one patch every 72 hours, prescription for 5 patches and plan to discontinue this after her 5 patches are gone. 2. Hydrocodone 5/325 one tablet q.i.d. p.r.n. breakthrough low back pain. 3. Lyrica 75 mg b.i.d. for painful diabetic peripheral neuropathy. 4. Tylenol Extra-Strength two tabs t.i.d. p.r.n. 5. Lantus insulin 20 units at bedtime. 6. Xalatan 0.005% drops one drop both eyes at bedtime. 7. Lisinopril 20 mg daily. 8. MiraLAX 17 g daily. 9. Aspirin 81 mg daily. 10.She was sent a prescription for her Contour Accu-Chek strips to monitor her blood sugars initially 4 times a day. She is to have follow up with her primary care physician in 1 week. /[id number] UCHE
--- OUTSIDE RECORDS SUMMARY | 2018-12-31 10:45 | XMSREPORT ---
:1945 Author Organization [facility] and [facility] Address [address] [place] [address] Care Team Providers Name Role Phone Ritika Wright Primary Care Provider Ritika Wright Attributed Provider Reason for Visit Reason Comments Back Pain Pt has a hx of back pain, daughter states it is getting worse and having a hard time ambulating. Per daughter pt. had a fall two week ago was seen at [facility] and was D/C. Yesterday was seen in ED in [place] and they did a CT and reported she had a fracture lumbar spine. Pt was D/C home with pain medication. Daughter repors pain medication is not helping the pain. Auth/Cert Status Reason Specialty Diagnoses / Procedures Referred By Contact Referred To Contact Encounter Details Date Type Department Care Team Description 12/03/2018 - Hospital Encounter [facility], Emergency Department [address] [place] [address] [phone] Closed compression 12/07/2018 [facility] Van Jules Murrieta MD [address] [place] [address] fracture of L1 [address] ARMENMonica Chris MD [address] [place] [address] [phone] lumbar vertebra, [place] [address] Eduarda Jack MD [address] [place] [address] [phone] initial encounter [phone] (HCC) Allergies No Known Allergiesdocumented as of this encounter (statuses as of 12/07/2018) Medications Medication Sig Dispensed Refills Start End Status Date Date lancets 1 each 4 times a 100 each Active (MICROLET)Indications: day 018 Type 2 diabetes mellitus with both eyes affected by mild nonproliferative retinopathy without macular edema, with long-term current use of insulin ([facility]) insulin needle (BD PEN Use once daily 100 each 0 Active NEEDLE EDGAR U/F) 32G X with Lantus 019 4 mmIndications: 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, with long-term current use of insulin, macular edema presence unspecified, unspecified laterality, unspecified retinopathy severity ([facility]) Incontinence Supply XL brief changing 120 each Active Disposable 4 times a day due 019 MISCIndications: Stress to stress incontinence, female incontinence blood glucose test USE TO TEST BLOOD 300 each Active strip (CONTOUR NEXT) SUGAR FOUR TIMES 019 STRPIndications: DAILY 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, with long-term current use of insulin, macular edema presence unspecified, unspecified laterality, unspecified retinopathy severity ([facility]) benzonatate (TESSALON) Take 100 mg by 0 Active 100 mg capsule mouth 3 times a day as needed for cough acetaminophen (TYLENOL) Take 2 tablets 100 tablet 0 Active 500 mg (1,000 mg) by tabletIndications: mouth 3 times a Closed compression day fracture of second lumbar vertebra, initial encounter ([facility]) aspirin 81 mg enteric Take 1 tablet (81 90 tablet 0 2 03/07/ Active coated mg) by mouth 2018 tabletIndications: time per day 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, with long-term current use of insulin, macular edema presence unspecified, unspecified laterality, unspecified retinopathy severity ([facility]), Essential hypertension polyethylene glycol Take 3 1 Bottle 0 Active (MIRALAX) teaspoonsful ( powderIndications: g) by mouth 2 Constipation, times a day unspecified constipation type propylene glycol Place 1 drop into 1 Bottle 0 12/07/2 01/06/ Active (SYSTANE BALANCE) 0.6 % both eyes Every 2018 SOLN ophthalmic hours as needed solutionIndications: for dry eyes 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, bilateral latanoprost (XALATAN) Place 1 drop into 1 Bottle 0 Active 0.005 % ophthalmic both eyes every solutionIndications: night at bedtime Primary open angle glaucoma (POAG) of both eyes, moderate stage pregabalin (LYRICA) 150 Take 1 capsule 180 capsule 0 12/07/2 03/07/ Active mg capsuleIndications: (150 mg) by mouth 2018 Peripheral 2 times a day polyneuropathy, Chronic bilateral low back pain without sciatica insulin glargine Inject 40 Units 15 mL 0 Active (LANTUS SOLOSTARE) subcutaneously 019 subcutaneous injection every night at solution bedtime INJECT 40 (pen)Indications: UNITS Controlled type 2 SUBCUTANEOUSLY diabetes mellitus with ONCE DAILY retinopathy, with long-term current use of insulin, macular edema presence unspecified, unspecified laterality, unspecified retinopathy severity ([facility]) lisinopril (PRINIVIL, Take 1 tablet (20 90 tablet 0 03/07/ Active ZESTRIL) 20 mg mg) by mouth 2018 tabletIndications: time per day 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, with long-term current use of insulin, macular edema presence unspecified, unspecified laterality, unspecified retinopathy severity ([facility]), Essential hypertension, CKD (chronic kidney disease) stage 4, GFR 15-29 ml/min ([facility]) baclofen (LIORESAL) 10 Take 0.25 tablets 67.5 tablet 0 03/07/ Active mg tabletIndications: (2.5 mg) by mouth 2018 Closed compression 3 times a day fracture of second lumbar vertebra, initial encounter ([facility]) docusate sodium Take 1 capsule 180 capsule 0 03/07/ Active (COLACE) 100 MG (100 mg) by mouth 2018 capsuleIndications: 2 times a day Closed compression fracture of second lumbar vertebra, initial encounter ([facility]) gabapentin (NEURONTIN) Take 2 capsules 540 capsule 0 03/07/ Active 100 mg (200 mg) by mouth 2018 capsuleIndications: 3 times a day Closed compression fracture of second lumbar vertebra, initial encounter ([facility]) HYDROcodone-acetaminoph Take 1 tablet by 60 tablet 0 Active en (NORCO) 10-325 mg mouth every 6 tabletIndications: hours as needed Closed compression for moderate pain fracture of second or severe pain lumbar vertebra, initial encounter ([facility]) latanoprost (XALATAN) Place 1 drop into 1 Bottle 6 12/07/ Discontinued 0.005 % ophthalmic both eyes every 2018 solutionIndications: night at bedtime Primary open angle glaucoma (POAG) of both eyes, moderate stage propylene glycol Place 1 drop into 1 Bottle 0 12/07/ Discontinued (SYSTANE BALANCE) 0.6 % both eyes Every 2018 SOLN ophthalmic hours as needed solutionIndications: for dry eyes 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, bilateral traMADol (ULTRAM) 50 mg Take 1 tablet (50 30 tablet 0 07/27/ Discontinued tabletIndications: Left mg) by mouth 2018 medial knee pain times a day as needed for severe pain lisinopril (PRINIVIL, TAKE 1 TABLET (20 90 tablet 1 Discontinued ZESTRIL) 20 mg MG) BY MOUTH 2018 tabletIndications: TIME PER DAY 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, with long-term current use of insulin, macular edema presence unspecified, unspecified laterality, unspecified retinopathy severity (HCC), Essential hypertension, CKD (chronic kidney disease) stage 4, GFR 15-29 ml/min ([facility]) SITagliptin (JANUVIA) Take 1 tablet 90 tablet 1 Discontinued 100 MG (100 mg) by mouth 2018 tabletIndications: 1 time per day 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, with long-term current use of insulin, macular edema presence unspecified, unspecified laterality, unspecified retinopathy severity (HCC) pregabalin (LYRICA) 150 Take 1 capsule 60 capsule 5 Discontinued mg capsuleIndications: (150 mg) by mouth 2018 Peripheral 2 times a day polyneuropathy, Chronic bilateral low back pain without sciatica insulin glargine INJECT 40 UNITS 15 mL 5 Discontinued (LANTUS SOLOSTARE) SUBCUTANEOUSLY 2018 subcutaneous injection ONCE DAILY solution (pen)Indications: 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, with long-term current use of insulin, macular edema presence unspecified, unspecified laterality, unspecified retinopathy severity (HCC) aspirin 81 mg enteric Take 1 tablet (81 90 tablet 3 Discontinued coated mg) by mouth 2018 tabletIndications: time per day 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, with long-term current use of insulin, macular edema presence unspecified, unspecified laterality, unspecified retinopathy severity (HCC), Essential hypertension polyethylene glycol Take 3 1 Bottle 12 Discontinued (MIRALAX) teaspoonsful (2018 powderIndications: g) by mouth 1 Constipation, time a day as unspecified needed for constipation type constipation HYDROcodone-acetaminoph Take 1 tablet by 0 Discontinued en (NORCO) 5-325 mg mouth Every 12 2018 tablet hours as needed for moderate pain acetaminophen (TYLENOL) Take 1,000 mg by 0 Discontinued 500 mg tablet mouth Every 8 2018 hours as needed for mild pain, fever > (indicate temp) or headache documented as of this encounter (statuses as of 12/07/2018) Active Problems Problem Noted Date Periumbilical hernia 12/04/2018 Compression fracture of L1 lumbar vertebra 12/04/2018 Obesity, morbid, BMI 50 or higher 12/03/2018 Closed compression fracture of L1 lumbar vertebra, initial encounter 2018 CKD (chronic kidney disease) stage 3, GFR 30-59 ml/min 12/03/2018 History of depression 05/05/2018 Type 2 diabetes mellitus with both eyes affected by mild nonproliferative 12/2017 retinopathy without macular edema, with long-term current use of insulin Pseudophakia 10/30/2017 Regular astigmatism of both eyes 10/30/2017 Hypermetropia of both eyes 10/30/2017 Peripheral polyneuropathy 10/13/2017 Chronic bilateral low back pain without sciatica 10/13/2017 Recurrent major depressive disorder, in full remission 10/13/2017 Osteoarthritis 10/22/2010 Type II or unspecified type diabetes mellitus without mention of 10/22/2010 complication, not stated as uncontrolled Essential hypertension 10/22/2010 Primary open angle glaucoma (POAG) of both eyes, moderate stage documented as of this encounter (statuses as of 12/07/2018) Immunizations Name Dates Previously Given Next Due FLU VACCINE MULTIDOSE 03/02/2018 0.5mL(6MO+Fluzone/Flulaval,5YR+Afluria) Pneumococcal Conj PCV13 12/02/2017 Pneumococcal Polysaccharide PPSV23 11/03/2018 TDAP 12/02/2017 documented as of this encounter Social History Tobacco Use Types Packs/Day Years Used Date Never Smoker Smokeless Tobacco: Never Used Alcohol Use Drinks/Week oz/Week Comments Yes Sex Assigned at Date Recorded Not on file Job Start Date Occupation Industry Not on file Not on file Not on file Travel History Travel Start Travel End No recent travel history available. documented as of this encounter Last Filed Vital Signs Vital Sign Reading Time Taken Blood Pressure 101/48 12/07/2018 8:32 AM CDT Pulse 67 12/07/2018 8:32 AM CDT Temperature 36.7 C (98 F) 12/07/2018 8:32 AM CDT Respiratory Rate 16 12/07/2018 8:32 AM CDT Oxygen Saturation 98% 12/07/2018 8:32 AM CDT Inhaled Oxygen Concentration - - Weight 91.9 kg (202 lb 9.6 oz) 12/05/2018 6:00 AM CDT Height 134.6 cm (4' 5") 12/04/2018 12:58 AM CDT Body Mass Index 50.71 12/04/2018 12:58 AM CDT documented in this encounter Functional Status Functional Status Response Date of Assessment Is the person deaf or does he/she have serious difficulty No 12/04/2018 hearing? Is this person blind or does he/she have difficulty No 12/04/2018 seeing even when wearing glasses? Do you have difficulty with walking, balance, climbing Yes 12/04/2018 stairs, or had a fall in the last 3 months? Does the patient have difficulty dressing or bathing? No 12/04/2018 Because of a physical, mental, or emotional condition; No 12/04/2018 does this person have difficulty doing errands alone such as visiting a doctor's office or shopping? Cognitive Status Response Date of Assessment Because of a physical, mental, or emotional condition; No 12/04/2018 does this person have serious difficulty concentrating, remembering, or making decisions? documented as of this encounter Discharge Summaries Eduarda Jakc MD - 12/07/2018 11:59 AM CDT Hospital Discharge Summary Attending Physician: Eduarda Jack MD Attending Physician Specialty: Adult Hospitalist Admit Date: 12/03/2018 Discharge Date: 12/07/18 Primary Care Physician: Ritika Wright APRN-HOME CARE AIDE Discharge Diagnoses Principal Problem: Closed compression fracture of L1 lumbar vertebra, initial encounter ([facility]) Active Problems: Essential hypertension Peripheral polyneuropathy Type 2 diabetes mellitus with both eyes affected by mild nonproliferative retinopathy without macular edema, with long-term current use of insulin ([facility]) History of depression Obesity, morbid, BMI 50 or higher ([facility]) CKD (chronic kidney disease) stage 3, GFR 30-59 ml/min ([facility]) Periumbilical hernia Compression fracture of L1 lumbar vertebra ([facility]) Resolved Problems: * No resolved hospital problems. * Hospital Course No notes on file 73 year old female who reports fall over 1 week ago while hanging curtains. She reports that she thinks she lost her balance and then she hit her back and head on the floor. Patient denies any cp or lightheadedness before. She reports after she has been getting intermittent headaches, none currently, and has been having issues with back pain that is sharp and not getting better. Worse with walking. No radiation into legs, and no new distal extremity numbness. 1. Acute L2 compression fracture secondary to mechanical fall: Shipping And Receiving Coordinator to fit for brace and patient is doing well with brace. Pain medication provided. PT recommend additional therapy. 2. Acute back pain without radiation - oxycodone scheduled w/ tylenol/baclofen/ gabapentin and PRN dilaudid. 3. Intermittent headaches, s/p fall- Does not have any focal deficit. Does complain of continued headaches. CT negative LabTests Pending at Discharge Follow-Up Scheduled Preliminary Discharge Medications This list of medications is preliminary and tentative. Please see the After Visit Summary for the final and accurate medication list. Discharge Medication List START taking these medications START: baclofen 10 mg tablet Commonly known as: LIORESAL Dose: 2.5 mg Take 0.25 tablets (2.5 mg) by mouth 3 times a day START: docusate sodium 100 MG capsule Commonly known as: COLACE Dose: 100 mg Take 1 capsule (100 mg) by mouth 2 times a day START: gabapentin 100 mg capsule Commonly known as: NEURONTIN Dose: 200 mg Take 2 capsules (200 mg) by mouth 3 times a day START: HYDROcodone-acetaminophen 10-325 mg tablet Commonly known as: NORCO Dose: 1 tablet Take 1 tablet by mouth every 6 hours as needed for moderate pain or severe pain Replaces: HYDROcodone-acetaminophen 5-325 mg tablet CONTINUE taking these medications which have CHANGED CONTINUE: acetaminophen 500 mg tablet Commonly known as: TYLENOL Dose: 1000 mg Take 2 tablets (1,000 mg) by mouth 3 times a day What changed: when to take this reasons to take this CONTINUE: insulin glargine subcutaneous injection solution (pen) Commonly known as: LANTUS SOLOSTARe Dose: 40 Units Inject 40 Units subcutaneously every night at bedtime INJECT 40 UNITS SUBCUTANEOUSLY ONCE DAILY What changed: how much to take how to take this when to take this CONTINUE: polyethylene glycol powder Commonly known as: MIRALAX Dose: 1 capful Take 3 teaspoonsful (17 g) by mouth 2 times a day What changed: when to take this reasons to take this CONTINUE taking these medications which have NOT CHANGED CONTINUE: aspirin 81 mg enteric coated tablet Dose: 81 mg Take 1 tablet (81 mg) by mouth 1 time per day CONTINUE: benzonatate 100 mg capsule Commonly known as: TESSALON Dose: 100 mg Take 100 mg by mouth 3 times a day as needed for cough CONTINUE: blood glucose test strip Strp USE TO TEST BLOOD SUGAR FOUR TIMES DAILY CONTINUE: Incontinence Supply Disposable Misc XL brief changing 4 times a day due to stress incontinence CONTINUE: insulin needle 32G X 4 mm Commonly known as: BD PEN NEEDLE EDGAR U/F Use once daily with Lantus CONTINUE: lancets Dose: 1 each 1 each 4 times a day CONTINUE: latanoprost 0.005 % ophthalmic solution Commonly known as: XALATAN Dose: [address] 1 drop into both eyes every night at bedtime CONTINUE: lisinopril 20 mg tablet Commonly known as: PRINIVIL, ZESTRIL Dose: 20 mg Take 1 tablet (20 mg) by mouth 1 time per day CONTINUE: pregabalin 150 mg capsule Commonly known as: LYRICA Dose: 150 mg Take 1 capsule (150 mg) by mouth 2 times a day CONTINUE: propylene glycol 0.6 % Soln ophthalmic solution Commonly known as: SYSTANE BALANCE Dose: [address] 1 drop into both eyes Every 4 hours as needed for dry eyes You might also be taking other medications not listed above. If you have questions about any of your other medications, talk to the person who prescribed them or your Primary Care Provider. STOP taking these medications STOP: HYDROcodone-acetaminophen 5-325 mg tablet Commonly known as: NORCO Replaced by: HYDROcodone-acetaminophen 10-325 mg tablet Where to Get Your Medications These medications were sent to [facility] [address] [place] [address] [facility] [id number] [facility] [id number] acetaminophen 500 mg tablet aspirin 81 mg enteric coated tablet baclofen 10 mg tablet docusate sodium 100 MG capsule insulin glargine subcutaneous injection solution (pen) latanoprost 0.005 % ophthalmic solution lisinopril 20 mg tablet polyethylene glycol powder propylene glycol 0.6 % Soln ophthalmic solution Information about where to get these medications is not yet available Ask your nurse or doctor about these medications gabapentin 100 mg capsule HYDROcodone-acetaminophen 10-325 mg tablet pregabalin 150 mg capsule Temp: 98 F (36.7 C) BP: 101/48 Weight: 91.9 kg (202 lb 9.6 oz) SpO2: 98 % Resp: 16 Pulse: 67 Current BMI (>50=increased risk): (!) 51.08 O2 Device: Room Air Physical Exam General Appearance: alert, well appearing, and in no distress Chest: clear to auscultation, no wheezes, rales or rhonchi, symmetric air entry Heart: normal rate, regular rhythm, normal S1, S2, no murmurs, rubs, clicks or gallops Abdomen: soft, nontender, nondistended, no masses or organomegaly Procedures Performed and Findings Consultations Obtained NUTRITION REFERRAL Discharge Disposition ADULT Discharge Planning: Home (1, 2) Medical Decision Making A total of 35 minutes were spent on discharge coordination. documented in this encounter Medications at Time of Discharge Medication Sig Dispensed Refills Start Date End Date acetaminophen (TYLENOL) Take 2 tablets 100 tablet 0 12/07/2018 500 mg tabletIndications: (1,000 mg) by mouth Closed compression 3 times a day fracture of second lumbar vertebra, initial encounter ([facility]) aspirin 81 mg enteric Take 1 tablet (81 90 tablet 0 12/07/2018 coated tabletIndications: mg) by mouth 1 time 9 Controlled type 2 diabetes per day mellitus with retinopathy, with long-term current use of insulin, macular edema presence unspecified, unspecified laterality, unspecified retinopathy severity (HCC), Essential hypertension polyethylene glycol Take 3 teaspoonsful 1 Bottle 0 12/07/2018 (MIRALAX) (17 g) by mouth 2 powderIndications: times a day Constipation, unspecified constipation type propylene glycol (SYSTANE Place 1 drop into 1 Bottle 0 12/07/2018 BALANCE) 0.6 % SOLN both eyes Every 4 9 ophthalmic hours as needed for solutionIndications: dry eyes 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, bilateral latanoprost (XALATAN) Place 1 drop into 1 Bottle 0 12/07/2018 0.005 % ophthalmic both eyes every solutionIndications: night at bedtime Primary open angle glaucoma (POAG) of both eyes, moderate stage pregabalin (LYRICA) 150 mg Take 1 capsule (150 180 capsule 0 12/07/2018 capsuleIndications: mg) by mouth 2 times 9 Peripheral polyneuropathy, a day Chronic bilateral low back pain without sciatica insulin glargine (LANTUS Inject 40 Units 15 mL 0 12/07/2018 SOLOSTARE) subcutaneous subcutaneously every injection solution night at bedtime (pen)Indications: INJECT 40 UNITS Controlled type 2 diabetes SUBCUTANEOUSLY ONCE mellitus with retinopathy, DAILY with long-term current use of insulin, macular edema presence unspecified, unspecified laterality, unspecified retinopathy severity (HCC) lisinopril (PRINIVIL, Take 1 tablet (20 90 tablet 0 12/07/2018 ZESTRIL) 20 mg mg) by mouth 1 time 9 tabletIndications: per day 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, with long-term current use of insulin, macular edema presence unspecified, unspecified laterality, unspecified retinopathy severity (HCC), Essential hypertension, CKD (chronic kidney disease) stage 4, GFR 15-29 ml/min ([facility]) docusate sodium (COLACE) Take 1 capsule (100 180 capsule 0 12/07/2018 100 MG capsuleIndications: mg) by mouth 2 times 9 Closed compression a day fracture of second lumbar vertebra, initial encounter ([facility]) gabapentin (NEURONTIN) 100 Take 2 capsules (200 540 capsule 0 12/07/2018 mg capsuleIndications: mg) by mouth 3 times 9 Closed compression a day fracture of second lumbar vertebra, initial encounter ([facility]) HYDROcodone-acetaminophen Take 1 tablet by 60 tablet 0 12/07/2018 (NORCO) 10-325 mg mouth every 6 hours tabletIndications: Closed as needed for compression fracture of moderate pain or second lumbar vertebra, severe pain initial encounter ([facility]) benzonatate (TESSALON) 100 Take 100 mg by mouth 0 mg capsule 3 times a day as needed for cough insulin needle (BD PEN Use once daily with 100 each 0 11/03/2018 NEEDLE EDGAR U/F) 32G X 4 Lantus mmIndications: 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, with long-term current use of insulin, macular edema presence unspecified, unspecified laterality, unspecified retinopathy severity ([facility]) Incontinence Supply XL brief changing 4 120 each 11/03/2018 Disposable times a day due to MISCIndications: Stress stress incontinence incontinence, female blood glucose test strip USE TO TEST BLOOD 300 each 5 11/03/2018 (CONTOUR NEXT) SUGAR FOUR TIMES STRPIndications: DAILY 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, with long-term current use of insulin, macular edema presence unspecified, unspecified laterality, unspecified retinopathy severity ([facility]) lancets 1 each 4 times a day 100 each 1 05/07/2018 (MICROLET)Indications: Type 2 diabetes mellitus with both eyes affected by mild nonproliferative retinopathy without macular edema, with long-term current use of insulin ([facility]) baclofen (LIORESAL) 10 mg Take 0.25 tablets 67.5 tablet 0 12/07/201803/07 tabletIndications: Closed (2.5 mg) by mouth 3 9 compression fracture of times a day second lumbar vertebra, initial encounter ([facility]) documented as of this encounter Progress Notes Eduarda Jack MD - 12/06/2018 2:22 PM CDT Hospital Progress Note Elissa Singh is a 73yr old female admitted on 12/03/2018. Assessment / Plan Principal Problem: Closed compression fracture of L1 lumbar vertebra, initial encounter ([facility]) Active Problems: Essential hypertension Peripheral polyneuropathy Type 2 diabetes mellitus with both eyes affected by mild nonproliferative retinopathy without macular edema, with long-term current use of insulin ([facility]) History of depression Obesity, morbid, BMI 50 or higher ([facility]) CKD (chronic kidney disease) stage 3, GFR 30-59 ml/min ([facility]) Periumbilical hernia Compression fracture of L1 lumbar vertebra ([facility]) Resolved Problems: * No resolved hospital problems. * 73 year old female who reports fall over 1 week ago while hanging curtains. She reports that she thinks she lost her balance and then she hit her back and head on the floor. Patient denies any cp or lightheadedness before. She reports after she has been getting intermittent headaches, none currently,and has been having issues with back pain that is sharp and not getting better. Worse with walking. No radiation into legs, and no new distal extremity numbness. On review of er notes this has been getting worse in last couple days the back pain. Interval history 1. Pain is better controlled 2. PT working with patient - recommends placement 3. CT head negative 1. Acute to subacute l2 compression fxr 2/2 likely mechanical fall: Shipping And Receiving Coordinator to fit for brace today. Will challenge with PT then. Patient is currently on bed rest. Pain while resting has no or limited pain. 2. Acute back pain without radiation - oxycodone scheduled w/ tylenol/baclofen/ gabapentin and PRN dilaudid. 3. Intermittent headaches, s/p fall- ordered CT head without contrast. Does not have any focal deficit. Does complain of continued headaches. CT negative 4. Deconditioning: Awaiting placement per PT/case management HPI / History / ROS HPI Review of Systems Constitutional: Negative for appetite change. HENT: Negative. Respiratory: Negative. Cardiovascular: Negative. Gastrointestinal: Negative. Genitourinary: Negative. Musculoskeletal: Positive for back pain. Neurological: Negative. Hematological: Negative. Psychiatric/Behavioral: Negative. Physical / Results Vitals: 12/06/18 1212 BP: 120/65 Pulse: 83 Resp: 16 Temp: 97.5 F (36.4 C) SpO2: 98% Physical Exam Constitutional: She appears well-developed and well-nourished. HENT: Head: Normocephalic. Eyes: Pupils are equal, round, and reactive to light. Neck: Normal range of motion. Cardiovascular: Normal rate. Pulmonary/Chest: Effort normal and breath sounds normal. Musculoskeletal: She exhibits tenderness. Skin: Skin is warm. Medical Decision Making I have: Independently visualized and interpreted an image, tracing or specimen previously or subsequently interpreted by another provider. Discussed results of laboratory, radiology or other diagnostic tests with the physician who performed or interpreted the study. Obtained/reviewed old records from [place] or elsewhere (details outlined elsewhere in note). Obtained history from a person other than the patient (details outlined elsewhere in note). Discussed case with another provider (details outlined elsewhere in note). A total of 25 minutes was spent with the patient or on the floor today, greater than 50% of which was spent in counseling regarding today's findings/assessment/ plan and in coordination of care, chart review, medical decision making, and documentation lee Blackwood CPO - 12/05/2018 2:25 PM CDT DATE OF SERVICE: 12/05/18 PATIENT: Elissa Singh LOCATION: [facility], room # 587 REASON FOR VISIT: Delivery of TLSO OBSERVATION: Elissa Singh was seen today for a fitting & delivery of her TLSO. The initial fitting of the device was done earlier today before her CT. She was able to don it while laying supine but once she sat up on the edge of the bed it looked a bit long and was digging in in her armpits. The following adjustments were needed to improve the fit: trimming of the front panel across the top and sides to improve the fit & increase comfort, also the back panel had to be trimmed across the top as it was too long for her. Now that all needed adjustments have been completed she donned the brace while sittingo n the edge of the bed, which was easier to марина but harder to get the straps as tight. She was able to walk with her walker from her bed to the chair in her room and sat there. She said it felt better when we had put it on earlier today because it was tighter. I explained that she may then want to put it on while she lays down in order to get everything as tight as possible. I went through application instructions with Elissa and her daughter. They will want to apply the abdominal binder first and position it low enough so that it is around her hips and belly, most likely it will extend lower than the TLSO, which is fine. The binder does help contain her soft tissue and makes it easier to get good support and maintain the fit of her TLSO. CLINICAL RECOMMENDATIONS: The orthosis being fit today was made by [employer]. The device is made of modified polyethelene and includes lined, high over thigh trim, a sternal dip, a full abdominal front and flare across anterior inferior edge, and an abdominal binder modifications. The orthosis is structurally sound. This device does meet her goals of decrease pain, protect and promote healing. TREATMENT PLAN: All goals of fitting and delivering this device today have been met. I reviewed all instructions with her including how to use, donning, doffing, wearing schedule, cleaning of brace and report concerns. A Care Of sheet was provided to the patient for her written reference. She had no questions or concerns at this time. Elissa was instructed to let nursing staff know if she needs an adjustment while she is still in the hospital so that they can contact [facility]; please page O&P Treatment Manager if needs arise,alpha pager # [phone]. Once she is discharged she was instructed to contact [facility] directly for an adjustment appointment. Alee Blackwood CPO Eduarda Bazan MD - 12/05/2018 1:11 PM CDT Hospital Progress Note Elissa Singh is a 73yr old female admitted on 12/03/2018. Assessment / Plan Principal Problem: Closed compression fracture of L1 lumbar vertebra, initial encounter ([facility]) Active Problems: Essential hypertension Peripheral polyneuropathy Type 2 diabetes mellitus with both eyes affected by mild nonproliferative retinopathy without macular edema, with long-term current use of insulin ([facility]) History of depression Obesity, morbid, BMI 50 or higher ([facility]) CKD (chronic kidney disease) stage 3, GFR 30-59 ml/min ([facility]) Periumbilical hernia Compression fracture of L1 lumbar vertebra ([facility]) Resolved Problems: * No resolved hospital problems. * 73 year old female who reports fall over 1 week ago while hanging curtains. She reports that she thinks she lost her balance and then she hit her back and head on the floor. Patient denies any cp or lightheadedness before. She reports after she has been getting intermittent headaches, none currently, and has been having issues with back pain that is sharp and not getting better. Worse with walking. No radiation into legs, and no new distal extremity numbness. On review of er notes this has been getting worse in last couple days the back pain. 1. Acute to subacute l2 compression fxr 2/2 likely mechanical fall: Shipping And Receiving Coordinator to fit for brace today. Will challenge with PT then. Patient is currently on bed rest. Pain while resting has no or limited pain. 2. Acute back pain without radiation - oxycodone scheduled w/ tylenol/baclofen/ gabapentin and PRN dilaudid. 3. Intermittent headaches, s/p fall- ordered CT head without contrast. Does not have any focal deficit. Does complain of continued headaches. Await CT. HPI / History / ROS HPI Review of Systems Constitutional: Negative for appetite change. HENT: Negative. Respiratory: Negative. Cardiovascular: Negative. Gastrointestinal: Negative. Genitourinary: Negative. Musculoskeletal: Positive for back pain. Neurological: Negative. Hematological: Negative. Psychiatric/Behavioral: Negative. Physical / Results Vitals: 12/05/18 0810 BP: 111/62 Pulse: 61 Resp: 16 Temp: 98.7 F (37.1 C) SpO2: 97% Physical Exam Constitutional: She appears well-developed and well-nourished. HENT: Head: Normocephalic. Eyes: Pupils are equal, round, and reactive to light. Neck: Normal range of motion. Cardiovascular: Normal rate. Pulmonary/Chest: Effort normal and breath sounds normal. Musculoskeletal: She exhibits tenderness. Skin: Skin is warm. Medical Decision Making I have: Independently visualized and interpreted an image, tracing or specimen previously or subsequently interpreted by another provider. Discussed results of laboratory, radiology or other diagnostic tests with the physician who performed or interpreted the study. Obtained/reviewed old records from [place] or elsewhere (details outlined elsewhere in note). Obtained history from a person other than the patient (details outlined elsewhere in note). Discussed case with another provider (details outlined elsewhere in note). A total of 25 minutes was spent with the patient or on the floor today, greater than 50% of which was spent in counseling regarding today's findings/assessment/ plan and in coordination of care, chart review, medical decision making, and documentation Alee Houston CPO - 12/04/2018 5:46 PM CDT DATE OF SERVICE: 12/04/18 PATIENT: Elissa Singh [facility] #: n/a JOHN LOCATION OF APPOINTMENT: [facility], room # 587 PRIMARY DIAGNOSIS: L1 compression fracture REFERRING PHYSICIAN: Dr. Monica Harrington REASON FOR VISIT: Evaluation and measuring for a TLSO. PATIENT GOALS: decrease pain, increase comfort, promote healing, protect and help stabilize L1 fracture DEMOGRAPHIC DATA: AGE/ SEX: 73yr year old female Ht Readings from Last 1 Encounters: 12/04/18 134.6 cm (53") Wt Readings from Last 1 Encounters: 12/04/18 92.5 kg (204 lb) EVALUATION: Elissa Singh is being evaluated for a custom TLSO due to her fracture of L1. Also present was shawn and joanna. This is to be worn when upright unless otherwise specified by physician. The patient states that she is having discomfort. She states that she has not worn this type of brace in the past. CLINICAL RECOMMENDATION: Due to her injury and treatment, the patient would benefit from a custom TLSO due to the patient's need for control in more than one plane and there is no off -the-shelf device that will fit the patient's short stature and higher weight. This device will aid in the healing process through limiting the range of motion and to promote healing and protect. The device should be worn as instructed by physician and should only be discontinued upon order of the physician. TREATMENT PLAN: Elissa was measured laying supine in hospital bed for a TLSO. The orthosis will be ordered through [employer] and be composed of modified polyethelene and include a waist pad, lined, high over thigh trim, a sternal dip, a full abdominal front and abdominal binder modifications. I discussed the different options available to the patient today. We discussed the potential risks associated with the use, misuse or lack of use of this orthosis. We discussed the goals and projected outcome with the proper usage of this orthosis. Elissa has agreed to this plan The patient will be fit upon receipt of the device, which will hopefully be tomorrow morning at somepoint but might not be until afternoon. Once I have an ETA for the brace I will call nursing staff so that Elissa's daughter can be updated and hopefully available for the fitting & instruction of the brace tomorrow since she will most likely be the one helping her mother with the brace at home. Elissa was instructed to let nursing staff know if she needs an adjustment while she is still in thehospital so that they can contact [facility], please page O& amp;P Treatment Manager with any questions or concerns, alpha pager # [phone]. The patient was also instructed that once she is discharged she will have to contact [facility] directly for an adjustment appointment. She is in agreement with this plan and will notify [facility] any concerns. Alee Blackwood CPO Eduarda Bazan MD - 12/04/2018 9:37 AM CDT Hospital Progress Note Elissa Singh is a 73yr old female admitted on 12/03/2018. Assessment / Plan Principal Problem: Closed compression fracture of L1 lumbar vertebra, initial encounter ([facility]) Active Problems: Essential hypertension Peripheral polyneuropathy Type 2 diabetes mellitus with both eyes affected by mild nonproliferative retinopathy without macular edema, with long-term current use of insulin ([facility]) History of depression Obesity, morbid, BMI 50 or higher ([facility]) CKD (chronic kidney disease) stage 3, GFR 30-59 ml/min ([facility]) Periumbilical hernia Compression fracture of L1 lumbar vertebra ([facility]) Resolved Problems: * No resolved hospital problems. * 73 year old female who reports fall over 1 week ago while hanging curtains. She reports that she thinks she lost her balance and then she hit her back and head on the floor. Patient denies any cp or lightheadedness before. She reports after she has been getting intermittent headaches, none currently, and has been having issues with back pain that is sharp and not getting better. Worse with walking. No radiation into legs, and no new distal extremity numbness. On review of er notes this has been getting worse in last couple days the back pain. 1. Acute to subacute l2 compression fxr 2/2 likely mechanical fall 2. Acute back pain without radiation - oxycodone scheduled w/ tylenol/baclofen/ gabapentin and PRN dilaudid. 3. Intermittent headaches, s/p fall- ordered CT head without contrast HPI / History / ROS HPI Review of Systems Constitutional: Negative for appetite change. HENT: Negative. Respiratory: Negative. Cardiovascular: Negative. Gastrointestinal: Negative. Genitourinary: Negative. Musculoskeletal: Positive for back pain. Neurological: Negative. Hematological: Negative. Psychiatric/Behavioral: Negative. Physical / Results Current Vital Signs Temp: 98.7 F (37.1 C) BP: 111/62 Weight: 91.9 kg (202 lb 9.6 oz) SpO2: 97 % Resp: 16 Pulse: 61 Current BMI (>50=increased risk): (!) 51.08 O2 Device: Room Air Pain Ratin("7 when I move") Physical Exam Constitutional: She appears well-developed and well-nourished. HENT: Head: Normocephalic. Eyes: Pupils are equal, round, and reactive to light. Neck: Normal range of motion. Cardiovascular: Normal rate. Pulmonary/Chest: Effort normal and breath sounds normal. Musculoskeletal: She exhibits tenderness. Skin: Skin is warm. Medical Decision Making I have: Independently visualized and interpreted an image, tracing or specimen previously or subsequently interpreted by another provider. Discussed results of laboratory, radiology or other diagnostic tests with the physician who performed or interpreted the study. Obtained/reviewed old records from [place] or elsewhere (details outlined elsewhere in note). Obtained history from a person other than the patient (details outlined elsewhere in note). Discussed case with another provider (details outlined elsewhere in note). A total of 35 minutes was spent with the patient or on the floor today, greater than 50% of which was spent in counseling regarding today's findings/assessment/ plan and in coordination of care, chart review, medical decision making, and documentation Elias Carpio RPh - 12/04/2018 12:11 AM CDT 12/04/2018 00:11 - Patient was seen by pharmacy on the [facility] unit. HOME MEDICATIONS have been reconciled and updated to match the patient's home usage. Elias Souza RPh Prior to Admission Medications Prescriptions Last Dose Informant Patient Reported? Taking? HYDROcodone-acetaminophen (NORCO) 5-325 mg tablet Greater than 1 Month at Unknown time MED Bottles or MED List Yes Yes Sig: Take 1 tablet by mouth Every 12 hours as needed for moderate pain Incontinence Supply Disposable MISC Abstracted No Yes Sig: XL brief changing 4 times a day due to stress incontinence acetaminophen (TYLENOL) 500 mg tablet 12/03/2018 at AM MED Bottles or MED List Yes Yes Sig: Take 1,000 mg by mouth Every 8 hours as needed for mild pain, fever > ( indicate temp) or headache aspirin 81 mg enteric coated tablet 12/03/2018 at AM MED Bottles or MED List No Yes Sig: Take 1 tablet (81 mg) by mouth 1 time per day benzonatate (TESSALON) 100 mg capsule Greater than 1 Month at Unknown time MED Bottles or MED List Yes Yes Sig: Take 100 mg by mouth 3 times a day as needed for cough blood glucose test strip (CONTOUR NEXT) STRP Abstracted No Yes Sig: USE TO TEST BLOOD SUGAR FOUR TIMES DAILY insulin glargine (LANTUS SOLOSTARE) subcutaneous injection solution (pen) 2018 at PM Self No Yes Sig: INJECT 40 UNITS SUBCUTANEOUSLY ONCE DAILY Patient taking differently: Inject 40 Units subcutaneously every night at bedtime insulin needle (BD PEN NEEDLE EDGAR U/F) 32G X 4 mm Abstracted No Yes Sig: Use once daily with Lantus lancets (MICROLET) Abstracted No Yes Si each 4 times a day latanoprost (XALATAN) 0.005 % ophthalmic solution 12/02/2018 at PM Self No Yes Sig: Place 1 drop into both eyes every night at bedtime lisinopril (PRINIVIL, ZESTRIL) 20 mg tablet Past month at Unknown time Self No Yes Sig: TAKE 1 TABLET (20 MG) BY MOUTH 1 TIME PER DAY polyethylene glycol (MIRALAX) powder Greater than 1 Month at Unknown time Self No Yes Sig: Take 3 teaspoonsful (17 g) by mouth 1 time a day as needed for constipation pregabalin (LYRICA) 150 mg capsule 12/03/2018 at AM MED Bottles or MED List No Yes Sig: Take 1 capsule (150 mg) by mouth 2 times a day propylene glycol (SYSTANE BALANCE) 0.6 % SOLN ophthalmic solution Past Week at Unknown time Self No Yes Sig: Place 1 drop into both eyes Every 4 hours as needed for dry eyes Facility-Administered Medications: None documented in this encounter Plan of Treatment Not on filedocumented as of this encounter Procedures Procedure Name Priority Date/Time Associated Comments Diagnosis GLUCOSE BY METER, POCT Routine 12/07/2018 12:09 Results for this PM CDT procedure are in the results section. GLUCOSE BY METER, POCT Routine 12/07/2018 6:36 Results for this AM CDT procedure are in the results section. GLUCOSE BY METER, POCT Routine 12/06/2018 8:59 Results for this PM CDT procedure are in the results section. GLUCOSE BY METER, POCT Routine 12/06/2018 5:42 Results for this PM CDT procedure are in the results section. GLUCOSE BY METER, POCT Routine 12/06/2018 11:19 Results for this AM CDT procedure are in the results section. GLUCOSE BY METER, POCT Routine 12/06/2018 6:42 Results for this AM CDT procedure are in the results section. XRAY SPINE LUMBAR 2-3 Routine 12/05/2018 9:22 Results for this VIEWS PM CDT procedure are in the results section. GLUCOSE BY METER, POCT Routine 12/05/2018 9:09 Results for this PM CDT procedure are in the results section. GLUCOSE BY METER, POCT Routine 12/05/2018 6:40 Results for this PM CDT procedure are in the results section. GLUCOSE BY METER, POCT Routine 12/05/2018 5:46 Results for this PM CDT procedure are in the results section. GLUCOSE BY METER, POCT Routine 12/05/2018 2:53 Results for this PM CDT procedure are in the results section. CT HEAD WITHOUT Routine 12/05/2018 1:23 Results for this CONTRAST PM CDT procedure are in the results section. GLUCOSE BY METER, POCT Routine 12/05/2018 7:12 Results for this AM CDT procedure are in the results section. GLUCOSE BY METER, POCT Routine 12/04/2018 8:13 Results for this PM CDT procedure are in the results section. GLUCOSE BY METER, POCT Routine 12/04/2018 5:18 Results for this PM CDT procedure are in the results section. GLUCOSE BY METER, POCT Routine 12/04/2018 11:26 Results for this AM CDT procedure are in the results section. GLUCOSE BY METER, POCT Routine 12/04/2018 6:25 Results for this AM CDT procedure are in the results section. GLUCOSE BY METER, POCT Routine 12/04/2018 4:29 Results for this AM CDT procedure are in the results section. GLUCOSE BY METER, POCT Routine 12/04/2018 1:27 Results for this AM CDT procedure are in the results section. COLLECT AND HOLD BLUE STAT 12/04/2018 12:00 Results for this (NACIT) TOP TUBE AM CDT procedure are in the results section. COMPLETE BLOOD COUNT STAT 12/03/2018 11:59 Results for this WITHOUT DIFFERENTIAL PM CDT procedure are in the results section. COMPREHENSIVE STAT 12/03/2018 11:59 Results for this METABOLIC PANEL PM CDT procedure are in the results section. documented in this encounter Results GLUCOSE BY METER, POCT (12/07/2018 12:09 PM CDT)Only the most recent of17 resultswithin the time period is included. Glucose POC 105 (H) 70 - 100 mg/dL [facility] Specimen Blood Performing Organization Address City/State/Zipcode Phone Number [address] [address] XRAY SPINE LUMBAR 2 OR 3V - AP AND LAT UPRIGHT (12/05/2018 9:22 PM CDT) Specimen Narrative Performed At [facility] Patient Name: ELISSA SINGH Date of :1945 Procedure: XRAY SPINE LUMBAR 2-3 VIEWS Date of Service: 12/05/2018 EXAM: XRAY SPINE LUMBAR 2-3 VIEWS INDICATION:L1 facture post brace placement COMPARISON(S): CT performed 12/02/2018 FINDINGS/IMPRESSION: Patient is imaged in a brace. There is a compression fracture deformity along the inferior endplate of L1 which demonstrates similar to slightly worsened height loss when compared to the 12/02/2018 CT. There are no other acute fractures identified. There is approximately 14 mm anterolisthesis of L4 on L5 with bilateral L4 pars interarticularis defects. 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 Finalized by: John Barajas MD on 12/05/2018 9:45 PM CDT Patient/Procedure Information: [facility] MRN/LORI: [id number] Order Number: [id number] Accession Number: [id number] Ordering Provider: ANYI DELGADO Authorizing Provider: ANYI DELGADO Procedure Note Interface, Radiantres - 12/05/2018 9:47 PM CDT Patient Name: ELISSA SINGH Date of : 1945 Procedure: XRAY SPINE LUMBAR 2-3 VIEWS Date of Service: 12/05/2018 EXAM: XRAY SPINE LUMBAR 2-3 VIEWS INDICATION:L1 facture post brace placement COMPARISON(S): CT performed 12/02/2018 FINDINGS/IMPRESSION: Patient is imaged in a brace. There is a compression fracture deformity along the inferior endplate of L1 which demonstrates similar to slightly worsened height loss when compared to the 12/02/2018 CT. There are no other acute fractures identified. There is approximately 14 mm anterolisthesis of L4 on L5 with bilateral L4 pars interarticularis defects. 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 Finalized by: John Barajas MD on 12/05/2018 9:45 PM CDT Patient/Procedure Information: [facility] MRN/LORI: [id number] Order Number: [id number] Accession Number: [id number] Ordering Provider: ANYI DELGADO Authorizing Provider: ANYI DELGADO Performing Organization Address City/State/Zipcode Phone Number [id number] CT HEAD WITHOUT CONTRAST (12/05/2018 1:23 PM CDT) Specimen Narrative Performed At [facility] Patient Name: ELISSA SINGH Date of :1945 Procedure: CT HEAD WITHOUT CONTRAST Date of Service: 12/05/2018 EXAM: CT HEAD WITHOUT CONTRAST INDICATION: Headache, post trauma TECHNIQUE: CT of the brain performed without IV contrast. COMPARISON(S): None Available FINDINGS: There is no evidence of acute intracranial hemorrhage or large vascular distribution infarct. No extra-axial fluid collection or mass. The ventricular system is normal in size, shape, and configuration. The posterior fossa and basilar cisterns appear to be within normal limits. There is good cadena-white matter differentiation. Very mild mucosal thickening of the maxillary sinuses. Mastoid air cells are clear. Orbits are grossly unremarkable in overall appearance. IMPRESSION: 1. No acute intracranial findings. 2. Very mild mucosal thickening of the maxillary sinuses Finalized by: Tyler Goodson MD on 12/05/2018 2:34 PM CDT Patient/Procedure Information: [facility] MRN/LORI: [id number] Order Number: [id number] Accession Number: [id number] Ordering Provider: EDUARDA JACK Authorizing Provider: EDUARDA JACK Procedure Note Todd Funes - 12/05/2018 2:36 PM CDT Patient Name: ELISSA SINGH Date of : 1945 Procedure: CT HEAD WITHOUT CONTRAST Date of Service: 12/05/2018 EXAM: CT HEAD WITHOUT CONTRAST INDICATION: Headache, post trauma TECHNIQUE: CT of the brain performed without IV contrast. COMPARISON(S): None Available FINDINGS: There is no evidence of acute intracranial hemorrhage or large vascular distribution infarct. No extra-axial fluid collection or mass. The ventricular system is normal in size, shape, and configuration. The posterior fossa and basilar cisterns appear to be within normal limits. There is good cadena-white matter differentiation. Very mild mucosal thickening of the maxillary sinuses. Mastoid air cells are clear. Orbits are grossly unremarkable in overall appearance. IMPRESSION: 1. No acute intracranial findings. 2. Very mild mucosal thickening of the maxillary sinuses Finalized by: Tyler Goodson MD on 12/05/2018 2:34 PM CDT Patient/Procedure Information: [facility] MRN/LORI: [id number] Order Number: [id number] Accession Number: [id number] Ordering Provider: EDUARDA JACK Authorizing Provider: EDUARDA JACK Performing Organization Address [facility]/Zipcode Phone Number PS360 COLLECT AND HOLD BLUE (NACIT) TOP TUBE (12/04/2018 12:00 AM CDT) Pathologist [facility], [place] Collect and Hold Comment: RECEIVED [place] [id number] Specimen Status CLINIC Specimen Blood Performing Organization Address City/[facility]/Zipcode Phone Number [place] [id number] CLINIC [address] [place] [address] COMPREHENSIVE METABOLIC PANEL (12/03/2018 11:59 PM CDT) [facility] Glucose 136 (H) 70 - 100 mg/dL [address] BUN 30 (H) 6 - 22 mg/dL [place] [address] CLINIC Creatinine 1.54 (H) 0.60 - 1.[address] mg/dL BUN/Creatinine Ratio 19.5 10.0 - 25.[address] Sodium 140 135 - 145 meq/L [address] Potassium 3.7 3.5 - 5.3 meq/L [address] Chloride 106 99 - 110 meq/L [address] CO2 28 20 - 29 meq/L [address] Anion Gap with K 10 6 - 20 meq/L [address] Calcium 9.6 8.5 - 10.[address] mg/dL Protein Total 7.4 6.0 - 8.2 g/dL [address] Albumin 3.8 3.5 - 5.0 g/dL [address] Alkaline Phosphatase 103 30 - 150 U/L [address] AST - SGOT 19 0 - 35 U/L [address] ALT - SGPT 22 0 - 55 U/L [address] Bilirubin Total 0.2 0.2 - 1.2 mg/dL [address] Corrected Calcium 9.8 8.5 - 10.[address] mg/dL Age [address] eGFR Non- 33 (L) >=[address] [place] mL/min/1.73m2 eGFR 40 (L) >=[address] mL/min/1.73m2 Specimen Blood Narrative Performed At For patients with a GFR <45 a referral to Nephrology is [address] recommended. Performing Organization Address City/State/Zipcode Phone Number [address] [place] [id number] COMPLETE BLOOD COUNT WITHOUT DIFFERENTIAL (12/03/2018 11:59 PM CDT) WBC 9.0 4.0 - 11.0 K/uL [address] RBC 3.73 (L) 3.80 - 5.30 M/uL [address] Hemoglobin 10.5 (L) 11.5 - 15.8 g/dL [address] Hematocrit 32.8 (L) 35.0 - 45.0 % [address] MCV 87.9 80.0 - 98.[address] MCH 28.2 25.5 - 34.[address] MCHC 32.0 31.5 - 36.5 g/dL [address] RDW-CV 13.9 11.5 - 15.5 % [address] RDW-SD 44.5 35.5 - 50.[address] Platelet Count 239 140 - 400 K/uL [address] MPV 10.8 8.5 - 12.[address] Specimen Blood Performing Organization Address City/State/Zipcode Phone Number [address] [facility] [place] [address] documented in this encounter Visit Diagnoses Diagnosis Closed compression fracture of first lumbar vertebra, initial encounter ([facility]) 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, with long-term current use of insulin, macular edema presence unspecified, unspecified laterality, unspecified retinopathy severity ([facility]) Essential hypertension Unspecified essential hypertension Constipation, unspecified constipation type 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, bilateral Primary open angle glaucoma (POAG) of both eyes, moderate stage Peripheral polyneuropathy Unspecified hereditary and idiopathic peripheral neuropathy Chronic bilateral low back pain without sciatica CKD (chronic kidney disease) stage 4, GFR 15-29 ml/min ([facility]) Chronic kidney disease, Stage IV (severe) Closed compression fracture of second lumbar vertebra, initial encounter ([facility]) Obesity, morbid, BMI 50 or higher ([facility]) History of depression Personal history of other mental disorder CKD (chronic kidney disease) stage 3, GFR 30-59 ml/min ([facility]) Chronic kidney disease, Stage III (moderate) Periumbilical hernia Umbilical hernia without mention of obstruction or gangrene documented in this encounter Discharge Diagnoses Not on filedocumented in this encounter Administered Medications Medication Order MAR Action Action Date Dose Rate Site baclofen (LIORESAL) tablet 2.5 mg Given 12/07/2018 2:12 PM CDT 2.5 mg 2.5 mg, Oral, Three times a day, First dose on Thu12/04/18 at 1500, Until Discontinued Given 12/07/2018 8:36 AM CDT 2.5 mg Given 12/06/2018 8:27 PM CDT 2.5 mg carbohydrate 15 g 15 g, Oral, PRN per parameter, Starting Thu12/03/18 at 2301, Until Discontinued , low blood glucose, Give 15 grams of carbohydrate if blood glucose is less than 70 mg/dL, patient is responsive and able to take food or oral meds. Recheck blood glucose in 15 minutes. Repeat 1 time and call MD. If recheck is greater than 70 mg/dL and able to take food or oral meds, give 15 gram carbohydrate if meal or snack due in more than an hour. Serve meal or snack if due in less than 1 hour. See hypoglycemia treatment on cardex. Sources of 15 grams carbohydrate: a.4 oz of fruit juice or b.4 oz of soda pop (NOT diet) or c.1 tablespoon of honey, dextrose 50% IV solution 50 mL 50 mL (25 g), IV, PRN per parameter, Starting Thu12/03/18 at 2301, Until Discontinued, low blood glucose, 50 mL, Give if blood glucose is less than 70 mg/dL, patient is unresponsive or NPO, and has IV access. Recheck blood glucose in 15 minutes and call MD. Repeat dose if recheck less than 70 mg/dL and call MD. If recheck is greater than 70 mg/dL and able to take food or oral meds, give 15 gram carbohydrate if meal or snack due in more than an hour. Serve meal or snack if due in less than 1 hour. See hypoglycemia treatment on cardex., dextrose chewable tablet 16 g 16 g (4 tablet), Oral, PRN per parameter, Starting Thu12/03/18 at 2301, Until Discontinued, low blood glucose, Chew before swallowing. Give 15 gram of carbohydrate if blood glucose is less than 70 mg/dL, patient is responsive and able to take food or oral meds. Recheck blood glucose in 15 minutes. Repeat 15 gram carbohydrate if recheck is less than 70 mg/dL and call MD. If recheck is greater than 70 mg/dL and able to take food or oral meds, give 15 gram carbohydrate if meal or snack due in more than an hour. Serve meal or snack if due in less than 1 hour. See hypoglycemia treatment on cardex. (Sources of 15 gram carbohydrate: 4 oz fruit juice or 4 oz soda pop (NOT diet) or 1 tablespoonful honey or 4 glucose tablets )., docusate sodium (COLACE) capsule 100 mg Given 12/07/2018 8:36 AM CDT 100 mg 100 mg, Oral, Two times a day, First dose on Thu12/04/18 at 0900, Until Discontinued, Swallow cap whole. Should not be crushed or chewed., Given 12/06/2018 8:29 PM CDT 100 mg Given 12/06/2018 8:43 AM CDT 100 mg gabapentin (NEURONTIN) capsule 200 mg Given 12/07/2018 2:12 PM CDT 200 mg 200 mg, Oral, Three times a day, First dose on Thu12/04/18 at 1500, Until Discontinued Given 12/07/2018 8:36 AM CDT 200 mg Given 12/06/2018 8:29 PM CDT 200 mg glucagon for injection 1 mg vial 1 mg 1 mg, Intramuscular, PRN per parameter, Starting Thu12/03/18 at 2301, Until Discontinued, low blood glucose, Give if blood glucose less than 70 mg/dL, patient is unresponsive or NPO, and has no IV access. Establish IV access. Recheck blood glucose in 15 minutes and call MD. If recheck is greater than 70 mg/dL and able to take food or oral meds, give 15 gram carbohydrate if meal or snack due in more than an hour. Serve meals or snack if due in less than 1 hour. See hypoglycemia treatment on cardex. Reconstitute vial with 1 mL of sterile water for injection for reconstitution for a final concentration of 1 mg/mL. Shake vial gently. Use immediately and discard unused portion. Reconstitute with 1 mL of sterile water for injection to yield 1 mg/mL. Shake vial gently. Use immediately and discard unused portion., heparin (porcine) injection solution Given 12/07/2018 2:13 PM CDT 5,000 Units 5,000 Units 5,000 Units, Subcutaneous, Every eight hours, First dose on Thu12/04/18 at 0600, Until Discontinued, 1 mL Given 12/07/2018 5:58 AM CDT 5,000 Units Given 12/06/2018 8:29 PM CDT 5,000 Units HYDROcodone-acetaminophen (NORCO) 10-325 Given 12/07/2018 2:12 PM CDT 1 tablet mg tablet 1 tablet 1 tablet, Oral, Three times a day, First dose on Thu12/04/18 at 1500, Until Discontinued, Total dose of acetaminophen from all acetaminophen containing products should not exceed 4 grams (4000 mg) per day., Given 12/07/2018 8:36 AM CDT 1 tablet Given 12/06/2018 8:29 PM CDT 1 tablet HYDROmorphone (DILAUDID) injection solution (conc: 0.5 mg/0.5mL) 0.5 mg 0.5 mg, IV, Every four hours prn, Starting 12/04/18 at 1305, Until Discontinued, moderate pain, 0.5 mL HYDROmorphone (DILAUDID) injection solution (conc: 1 mg/mL) 1 mg 1 mg, IV, Every four hours prn, Starting 12/04/18 at 1305, Until Discontinued, severe pain, 1 mL insulin aspart (NovoLOG) SQ correction Given 12/06/2018 6:24 PM CDT 2 Units scale (Adult) 2-8 Units, Subcutaneous, Three times a day with meals, First dose on 12/04/18 at 0730, Until Discontinued, 0.08 mL, Patient is eating LOW DOSE insulin aspart (NovoLOG) subcutaneous correction scale Premeal Blood Glucose=Insulin Dose 150-199 2 units 200-249 3 units 250-299 5 units 300-349 7 units Over 349 8 units, Given 12/05/2018 6:46 PM CDT 2 Units Given 12/05/2018 2:56 PM CDT 2 Units insulin glargine (LANTUS) SQ injection Given 12/06/2018 8:28 PM CDT 35 Units 35 Units, Subcutaneous, Bedtime, First dose on 12/04/18 at 2100, Until Discontinued, 0.35 mL, Do not hold. Call provider if blood glucose less than 100 mg/dl, if patient changed to NPO or if tube feedings stopped., Given 12/05/2018 8:41 PM CDT 35 Units Given 12/04/2018 8:15 PM CDT 35 Units latanoprost (XALATAN) 0.005 % ophthalmic Given 12/06/2018 8:28 PM CDT 1 drop solution 1 drop 1 drop, Both eyes, Bedtime, First dose on 12/04/18 at 2100, Until Discontinued, 2.5 mL Given 12/05/2018 8:41 PM CDT 1 drop Given 12/04/2018 8:15 PM CDT 1 drop lisinopril (PRINIVIL, ZESTRIL) tablet 20 mg Given 12/07/2018 8:36 AM CDT 20 mg 20 mg, Oral, DAILY, First dose on Thu12/04/18 at 0900, Until Discontinued, Hold if SBP less than 100, Given 12/06/2018 12:29 PM CDT 20 mg Given 12/05/2018 8:21 AM CDT 20 mg melatonin tablet 3 mg 3 mg, Oral, Bedtime prn, Starting Thu12/04/18 at 0410, Until Discontinued, other (Specify), insomnia, If inadequate response in 60 minutes, may proceed to next choice option or, if no other options, contact provider., metoclopramide (REGLAN) inj soln 5 mg 5 mg, IV, Every six hours prn, Starting Thu12/03/18 at 2228, Until Discontinued , nausea, vomiting, 2 mL, Use SECOND. If ineffective and ondansetron used, call physician for alternative If preference is to further dilute for IV administration: First draw up patient-specific dose, then dilute to 10 mL with 0.9% sodium chloride., ondansetron (ZOFRAN) injection solution 4 mg 4 mg, IV, Every four hours prn, Starting Thu12/03/18 at 2228, Until Discontinued, nausea, vomiting, 2 mL, Use FIRST. If ineffective after 15 minutes use metoclopramide. If preference is to further dilute for IV administration: First draw up patient-specific dose, then dilute to 10 mL with 0.9% sodium chloride. , pregabalin (LYRICA) CAPS 150 mg Given 12/07/2018 8:36 AM CDT 150 mg 150 mg, Oral, Two times a day, First dose on Thu12/04/18 at 0900, Until Discontinued Given 12/06/2018 8:27 PM CDT 150 mg Given 12/06/2018 8:43 AM CDT 150 mg sodium chloride 0.9% flush (adult) 10 mL Given 12/07/2018 8:37 AM CDT 10 mL 10 mL, IV, Two times a day and prn, First dose on Thu12/03/18 at 2230, Until Discontinued, 10 mL, Flush IV line as scheduled and as often as necessary before and after meds., Given 12/06/2018 8:33 PM CDT 10 mL Given 12/06/2018 8:48 AM CDT 10 mL Medication Order MAR Action Action Date Dose Rate Site acetaminophen (TYLENOL) tablet Given 12/04/2018 8:20 AM CDT 1,000 mg 1,000 mg 1,000 mg, Oral, Three times a day, First dose on 12/04/18 at 0900, Until Discontinued, Pain stratification is defined as follows for either analog scale (0-10) or critical care pain observation tool (CPOT, 0-8). a. No pain (0) b. Mild pain level (1-3) c. Moderate pain level (4-6) d. Severe pain level (greater than or equal to 7), oxyCODONE (OXY-IR) tablet 5 mg Given 12/04/2018 2:20 AM CDT 5 mg 5 mg, Oral, Now, 1 dose, 12/04/18 at 0215 documented in this encounter
== END 2018-12-18 10:32 | disposition home or self-care (01) | DRG 560 ==
LOC: FB.MS 16:14
PROVIDERS: ADMIT Family Medicine; ATTEND Family Medicine
DX: S32.010D Wedge compression fracture of first lumbar vertebra, subsequent encounter for fracture with routine healing (principal); N18.4 Chronic kidney disease, stage 4 (severe); W19.XXXD Unspecified fall, subsequent encounter; I12.9 Hypertensive chronic kidney disease with stage 1 through stage 4 chronic kidney disease, or unspecified chronic kidney disease; E11.22 Type 2 diabetes mellitus with diabetic chronic kidney disease; Z79.4 Long term (current) use of insulin; M54.9 Dorsalgia, unspecified; G89.29 Other chronic pain; M19.90 Unspecified osteoarthritis, unspecified site; E11.42 Type 2 diabetes mellitus with diabetic polyneuropathy; E11.3299 Type 2 diabetes mellitus with mild nonproliferative diabetic retinopathy without macular edema, unspecified eye; F32.9 Major depressive disorder, single episode, unspecified; Z79.82 Long term (current) use of aspirin; Z79.899 Other long term (current) drug therapy; Z90.49 Acquired absence of other specified parts of digestive tract; K59.00 Constipation, unspecified
CPT/HCPCS: 36415; 80048; 80053; 81001; 82962; 85025; 94150; 97110-GO; 97110-GP; 97116-GP; 97161-GP; 97166-GO; 97530-GO; 97530-GP; 97535-GO; 97760-GO; A9270-GY; J1650; J1815; J1815-GY

== ENCOUNTER 2020-04-22 19:22 | Emergency (ER) | payer MEDICARE, MEDICAID ==
[2020-04-22] MEDS ORDERED: Albuterol 8 GM Inhaler INH ONE (19:23)
[2020-04-22] MEDS ORDERED: Ondansetron 4 MG Tab.DIS PO ONE ×2 (19:23→23:31)
[2020-04-22] MEDS ORDERED: Sodium Chloride 0.9% 10 ML Syringe FLUSH PRN (19:46)
--- NOTE | 2020-04-22 19:46 | EDM.PDOC ---
ED HPI GENERAL MEDICAL PROBLEM - General Stated Complaint: covid Time Seen by Provider: 04/22/20 19:45 Source of Information: Reports: Patient History Limitations: Reports: No Limitations - History of Present Illness INITIAL COMMENTS - FREE TEXT/NARRATIVE: 74-year-old female who reports on Thursday she began to develop nasal congestion with cough and malaise. She also had diffuse body aches and some nausea. Her symptoms seem to have worsened over the past few days. She reports that she has lost her sense of taste and that everything tastes bad and his stool Lewis even drink water because it doesn't taste good. She has had really no. She did have vomiting times one today and felt generalized weakness and was feeling short of breath and that prompted her to come to the emergency department for ev aluation. She is brought to the emergency department via private vehicle by her daughter who is Covid positive. The patient denies any diarrhea. The patient apparently was tested for Covid at the end of this last week but is also not back at this point the patient has had fevers with chills and she just feels bad all over. She does report headache and aching all over and she has some abdominal pain. She states she would rate the aching is a 10/10. Nothing really seems to make it better or worse. There are no other associated signs or symptoms. There are no other modifying factors. 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: Acetaminophen - Related Data Allergies Allergy/AdvReac Type Severity Reaction Status Date / Time No Known Allergies Allergy Verified 12/03/18 02:11 Home Meds: Home Meds Insulin Glarg,Human.Rec.Analog [Lantus] 40 units SQ BEDTIME 03/01/18 [History] Acetaminophen [Tylenol Extra Strength] 1,000 mg PO TID 03/02/18 [History] Aspirin [Halfprin] 81 mg PO DAILY 03/02/18 [History] Lisinopril 20 mg PO DAILY 03/02/18 [History] Latanoprost [Xalatan 0.005% Ophth Soln] 1 drop EYEBOTH BEDTIME 12/07/18 [History] Propylene Glycol [Systane Balance] 1 drop EYEBOTH Q4H PRN 12/07/18 [History] polyethylene glycoL 3350 [MiraLAX] 17 gm PO BID 12/07/18 [History] Hydrocodone/Acetaminophen [[place] 5-325 Tablet] 1 each PO QID PRN #50 tablet 12/18/18 [Rx] Insulin Glarg,Human.Rec.Analog [Lantus Solostar] 20 units SUBCUT BEDTIME pen 12/18/18 [Rx] Pregabalin [Lyrica] 75 mg PO BID #60 cap 12/18/18 [Rx] fentaNYL [Duragesic] 12 mcg TRDERM Q72H #5 patch 12/18/18 [Rx] Ondansetron [Zofran ODT] 4 mg PO Q6H PRN #10 tab.dis 04/22/20 [Rx] Past Medical History HEENT History: Reports: Cataract, Glaucoma, Impaired Vision Cardiovascular History: Reports: Hypertension Gastrointestinal History: Reports: Chronic Constipation, GERD Other Gastrointestinal History: Periumbilicial hernia Genitourinary History: Reports: Chronic Renal Insuffiency, Renal Calculus Other Genitourinary History: Pt tells us she is now stage 4 kidney failure. 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) - Infectious Disease History Infectious Disease History: Reports: Chicken Pox, Measles, Mumps - Past Surgical History GI Surgical History: Reports: Cholecystectomy Female Surgical History: Reports: Section Social & Family History - Tobacco Use Tobacco Use Status *Q: Unknown Ever Used Tobacco (Nonsmoker.) - Caffeine Use Caffeine Use: Reports: Coffee Other Caffeine Use: 2-3 cups daily - Alcohol Use Alcohol Use History: No - Living Situation & Occupation Living situation: Reports: Other (She lives with her daughter.) Occupation: Retired ED ROS GENERAL - Review of Systems Review Of Systems: See Below Constitutional: Reports: Fever, Chills, Malaise, Weakness, Fatigue, Decreased Appetite HEENT: Reports: Other (Nasal congestion) Respiratory: Reports: Shortness of Breath, Cough. Denies: Hemoptysis Cardiovascular: Reports: No Symptoms Endocrine: Reports: Fatigue GI/Abdominal: Reports: Abdominal Pain, Nausea, Vomiting. Denies: Diarrhea : Reports: No Symptoms Musculoskeletal: Reports: Other (He has body aches) Skin: Reports: No Symptoms Neurological: Reports: Headache Hematologic/Lymphatic: Reports: No Symptoms Immunologic: Reports: No Symptoms ED EXAM, GENERAL - Physical Exam Exam: See Below Exam Limited By: No Limitations General Appearance: Alert, Moderate Distress, Obese, Other (Patient looks uncomfortable. She does have somewhat increased respiratory rate but she is fluid and appropriate in her conversation.) Eye Exam: Bilateral Eye: EOMI, Normal Inspection Ears: Normal External Exam, Hearing Grossly Normal Ear Exam: Bilateral Ear: Auricle Normal Nose: No Blood, Nasal Drainage Throat/Mouth: Normal Voice, No Airway Compromise, Other (Somewhat dry mucous membranes.) Head: Atraumatic, Normocephalic Neck: Normal Inspection, Supple, Non-Tender, Full Range of Motion Respiratory/Chest: No Accessory Muscle Use, Wheezing, Other (Increased respira tory rate. Air movement is good.) Cardiovascular: Normal Peripheral Pulses, Regular Rate, Rhythm, No Murmur Peripheral Pulses: 2+: Radial (L), Radial (R) GI/Abdominal: Normal Bowel Sounds, Soft, No Mass, Tender (Mild diffuse tenderness.), Other (Protuberant.) Back Exam: Normal Inspection, Full Range of Motion Extremities: Normal Capillary Refill, Pedal Edema Neurological: Alert, Oriented, CN II-XII Intact, Normal Cognition, No Motor/Sensory Deficits Skin Exam: Warm, Dry, Intact, Normal Color, No Rash #1 Interpretation EKG Date: 04/22/20 Time: 20:28 Rhythm: NSR Rate (Beats/Min): 81 [place]: Normal P-Wave: Present QRS: Normal ST-T: Normal QT: Normal Comparison: NA - No Prior EKG EKG Interpretation Comments: Normal EKG. Course - Vital Signs Last Recorded V/S: Last Vital Signs Temp 36.9 C 04/22/20 19:25 Pulse 87 04/22/20 19:25 Resp 24 H 04/22/20 19:25 BP 145/56 H 04/22/20 19:25 Pulse Ox 97 04/22/20 19:25 - Orders/Labs/Meds Orders: Active Orders 24 hr Category Date Time Status EKG Documentation Completion [RC] ASDIRECTED Care 04/22/20 19:48 Active Chest 1V Frontal [CR] Stat Exams 04/22/20 19:46 Taken Sodium Chloride 0.9% [Normal Saline] 1,000 ml Med 04/22/20 20:00 Active IV ASDIRECTED Sodium Chloride 0.9% [Saline Flush] Med 04/22/20 19:46 Active 10 ml FLUSH ASDIRECTED PRN Peripheral IV Insertion Adult [OM.PC] Routine Oth 04/22/20 19:46 Ordered EKG 12 Lead [EK] Routine Ther 04/22/20 19:46 Ordered Medication Orders Sodium Chloride (Normal Saline) 1,000 mls @ 125 mls/hr IV ASDIRECTED EDSON Last Admin: 04/22/20 21:35 Dose: 125 mls/hr Documented by: BRENLOR Sodium Chloride (Saline Flush) 10 ml FLUSH ASDIRECTED PRN PRN Reason: Keep Vein Open Labs: Laboratory Tests 04/22/20 04/22/20 04/22/20 Range/Units 19:35 20:04 20:04 WBC 8.4 (3.0-10.3) x10-3/uL RBC 3.56 L (3.60-5.20) x10(6)uL Hgb 10.2 L (11.4-15.5) g/dL Hct 30.9 L (34.2-48.2) % MCV 87.0 (76.7-100.5) fL MCH 28.7 (23.9-33.9) pg MCHC 33.0 (31.9-34.8) g/dL RDW 13.7 (12.3-16.5) % Plt Count 184 (151-488) x10(3)uL MPV 9.3 (7.1-12.4) fL Neut % (Auto) 74.9 (30.8-76.2) % Lymph % (Auto) 12.3 L (18.4-52.1) % Schley % (Auto) 12.1 (4.4-15.7) % Eos % (Auto) 0.3 L (0.6-8.1) % Baso % (Auto) 0.4 (0.2-1.5) % Neut # (Auto) 6.3 (1.5-6.3) x10-3/uL Lymph # (Auto) 1.0 (1.0-4.4) x10-3/uL Schley # (Auto) 1.0 (0.3-1.0) x10-3/uL Eos # (Auto) 0.0 (0.0-0.8) x10-3/uL Baso # (Auto) 0.0 (0.0-0.1) x10-3/uL Sodium 136 (135-145) mmol/L Potassium 4.5 D (3.5-5.3) mmol/L Chloride 100 D (100-110) mmol/L Carbon Dioxide 26 (21-32) mmol/L BUN 34 H (7-18) mg/dL Creatinine 1.8 H (0.55-1.02) mg/dL Est Cr Clr Drug Dosing TNP Estimated GFR (MDRD) 28 L (>60) BUN/Creatinine Ratio 18.9 (9-20) Glucose 134 H (80-116) mg/dL Calcium 8.7 (8.6-10.2) mg/dL Magnesium 1.7 L (1.8-2.5) mg/dL Total Bilirubin 0.4 (0.1-1.3) mg/dL AST 26 H D (5-25) IU/L ALT 23 D (12-36) U/L Alkaline Phosphatase 114 H (56-112) IU/L Troponin I (4.0-60.3) pg/mL Total Protein 7.6 (6.0-8.0) g/dL Albumin 2.9 L (3.2-4.6) g/dL Globulin 4.7 g/dL Albumin/Globulin Ratio 0.6 Lipase (73-393) U/L Urine Color (YELLOW) Urine Appearance (CLEAR) Urine pH (5.0-6.5) Ur Specific [place] (1.010-1.025) Urine Protein (NEGATIVE) mg/dL Urine Glucose (UA) (NORMAL) mg/dL Urine Ketones (NEGATIVE) mg/dL Urine Occult Blood (NEGATIVE) Urine Nitrite (NEGATIVE) Urine Bilirubin (NEGATIVE) Urine Urobilinogen (NEGATIVE) mg/dL Ur Leukocyte Esterase (NEGATIVE) Urine RBC (0-5) Urine WBC (0-5) Ur Squamous Epith Cells (NS,R,O) Amorphous Sediment Urine Bacteria (NS) Coarse Granular Casts (NS) Urine Mucus (NS) SARS-CoV-2 RNA (BRIAN) Positive H (NEGATIVE) 04/22/20 04/22/20 Range/Units 20:04 20:35 WBC (3.0-10.3) x10-3/uL RBC (3.60-5.20) x10(6)uL Hgb (11.4-15.5) g/dL Hct (34.2-48.2) % MCV (76.7-100.5) fL MCH (23.9-33.9) pg MCHC (31.9-34.8) g/dL RDW (12.3-16.5) % Plt Count (151-488) x10(3)uL MPV (7.1-12.4) fL Neut % (Auto) (30.8-76.2) % Lymph % (Auto) (18.4-52.1) % Schley % (Auto) (4.4-15.7) % Eos % (Auto) (0.6-8.1) % Baso % (Auto) (0.2-1.5) % Neut # (Auto) (1.5-6.3) x10-3/uL Lymph # (Auto) (1.0-4.4) x10-3/uL Schley # (Auto) (0.3-1.0) x10-3/uL Eos # (Auto) (0.0-0.8) x10-3/uL Baso # (Auto) (0.0-0.1) x10-3/uL Sodium (135-145) mmol/L Potassium (3.5-5.3) mmol/L Chloride (100-110) mmol/L Carbon Dioxide (21-32) mmol/L BUN (7-18) mg/dL Creatinine (0.55-1.02) mg/dL Est Cr Clr Drug Dosing Estimated GFR (MDRD) (>60) BUN/Creatinine Ratio (9-20) Glucose (80-116) mg/dL Calcium (8.6-10.2) mg/dL Magnesium (1.8-2.5) mg/dL Total Bilirubin (0.1-1.3) mg/dL AST (5-25) IU/L ALT (12-36) U/L Alkaline Phosphatase (56-112) IU/L Troponin I 11.1 (4.0-60.3) pg/mL Total Protein (6.0-8.0) g/dL Albumin (3.2-4.6) g/dL Globulin g/dL Albumin/Globulin Ratio Lipase 135 (73-393) U/L Urine Color Yellow (YELLOW) Urine Appearance Slightly cloudy (CLEAR) Urine pH 5.0 (5.0-6.5) Ur Specific [place] 1.015 (1.010-1.025) Urine Protein 30 H (NEGATIVE) mg/dL Urine Glucose (UA) Normal (NORMAL) mg/dL Urine Ketones 15 H (NEGATIVE) mg/dL Urine Occult Blood Trace (NEGATIVE) Urine Nitrite Negative (NEGATIVE) Urine Bilirubin Small H (NEGATIVE) Urine Urobilinogen Normal (NEGATIVE) mg/dL Ur Leukocyte Esterase Negative (NEGATIVE) Urine RBC 0-5 (0-5) Urine WBC 0-5 (0-5) Ur Squamous Epith Cells Many H (NS,R,O) Amorphous Sediment Few Urine Bacteria Moderate H (NS) Coarse Granular Casts Few H (NS) Urine Mucus Few H (NS) SARS-CoV-2 RNA (BRIAN) (NEGATIVE) Meds: Medications Generic Name Dose Route Start Last Admin Trade Name Freq PRN Reason Stop Dose Admin Sodium Chloride 1,000 mls @ 125 mls/hr 04/22/20 20:00 04/22/20 21:35 Normal Saline IV 125 mls/hr ASDIRECTED EDSON Administration Sodium Chloride 10 ml 04/22/20 19:46 Saline Flush FLUSH ASDIRECTED PRN Keep Vein Open Discontinued Medications Generic Name Dose Route Start Last Admin Trade Name Freq PRN Reason Stop Dose Admin Sodium Chloride 500 mls @ 999 mls/hr 04/22/20 19:48 04/22/20 21:00 Normal Saline IV 04/22/20 20:18 999 mls/hr .BOLUS ONE Administration Ondansetron HCl 4 mg 04/22/20 19:48 04/22/20 21:14 Zofran IVPUSH 04/22/20 19:49 4 mg ONETIME ONE Administration - Radiology Interpretation Free Text/Narrative:: A portable chest x-ray showed no acute disease per the radiologist at [facility]. - Re-Assessments/Exams Free Text/Narrative Re-Assessment/Exam: 04/22/20 21:45: The patient's blood tests are during. Urinalysis was normal. Chest x-ray showed no acute process. Her EKG was normal. She has received normal saline as a bolus and Zofran IV. She is feeling somewhat improved and she was able to walk to the bathroom. I will plan on giving her more IV fluid hydration and if she remains stable, I will plan on discharging the patient. 04/22/20 23:30: The patient has remained vitally and respiratory stable. Her respiratory rate is in the high teens now. She is still having some wheezing but air movement is good. Her O2 saturation is 97% on room air. I will plan on discharging the patient with Zofran 4 nausea. I will also give her an albuterol inhaler with 2 puffs now and a spacer to use with this. And she can use it 2 puffs every 4 hours as needed for wheezing/cough/shortness of breath. She should continue to use Tylenol 1000 mg by mouth every 6 hours for fever or pain. She should increase her fluid intake. I have discussed all this with the patient and she wants to go home now. The nurse has discussed this with the patient's daughter and she is in agreement with the patient's discharge. Precautions and reasons for return to the emergency department were discussed with the patient and with the daughter while the patient was in the emergency department and were detailed in the patient's discharge instructions. Departure - Departure Time of Disposition: 23:50 Disposition: Home, Self-Care 01 Condition: Good (Improved) Clinical Impression: COVID-19 virus infection, Dehydration URI (upper respiratory infection) Qualifiers: URI type: unspecified URI Qualified Code(s): J06.9 - Acute upper respiratory infection, unspecified Vomiting Qualifiers: Vomiting type: unspecified Vomiting Intractability: non-intractable Nausea presence: with nausea Qualified Code(s): R11.2 - Nausea with vomiting, unspecified - Discharge Information Prescriptions: Ondansetron [Zofran ODT] 4 mg PO Q6H PRN #10 tab.dis PRN Reason: Nausea/Vomiting Instructions: COVID-19 Frequently Asked Questions, COVID-19: How to Protect Yourself and Others - CDC, Prevent the Spread of COVID-19 if You Are Sick - CDC, Dehydration, Elderly, [id number], Nausea and Vomiting, Adult, [id number], Upper Respiratory Infection, Adult, [id number] Referrals: PCP,None [Primary Care Provider] - Additional Instructions: Your blood tests were reassuring. Your urine test showed no infection. Your chest x-ray was clear. Your EKG was normal. You do have COVID 19 infection. You were somewhat dehydrated and we have corrected that with the IV fluids. Your oxygen level was good. You did have some wheezing and we have given you an albuterol inhaler that you shouldn't use with the spacer that we provided you to help with your wheezing, shortness of breath and cough. Use the Zofran for nausea and vomiting. You need to rest and you definitely need to increase your fluid intake. You should take Tylenol 1000 mg by mouth every 6 hours as needed for fever or pain. Back to the emergency department for unrelenting vomiting, inability to take liquids, severe weakness, worsening breathing or any other concerning sign or symptom. Sepsis Event Note (ED) - Focused Exam Vital Signs: Vital Signs Temp Pulse Resp BP Pulse Ox 04/22/20 19:25 36.9 C 87 24 H 145/56 H 97 - My Orders Last 24 Hours: My Active Orders 04/22/20 19:46 Chest 1V Frontal [CR] Stat Sodium Chloride 0.9% [Saline Flush] 10 ml FLUSH ASDIRECTED PRN Peripheral IV Insertion Adult [OM.PC] Routine EKG 12 Lead [EK] Routine 04/22/20 19:48 EKG Documentation Completion [RC] ASDIRECTED 04/22/20 20:00 Sodium Chloride 0.9% [Normal Saline] 1,000 ml IV ASDIRECTED - Assessment/Plan Last 24 Hours: My Active Orders 04/22/20 19:46 Chest 1V Frontal [CR] Stat Sodium Chloride 0.9% [Saline Flush] 10 ml FLUSH ASDIRECTED PRN Peripheral IV Insertion Adult [OM.PC] Routine EKG 12 Lead [EK] Routine 04/22/20 19:48 EKG Documentation Completion [RC] ASDIRECTED 04/22/20 20:00 Sodium Chloride 0.9% [Normal Saline] 1,000 ml IV ASDIRECTED
[2020-04-22] MEDS ORDERED: Ondansetron 4 MG/2 ML SDV IVPUSH ONE (19:48)
[2020-04-22] MEDS ORDERED: Sodium Chloride 0.9% 500 ML IV ONE (19:48)
[2020-04-22] MEDS ORDERED: Sodium Chloride 0.9% 1,000 ML IV SCH (20:00)
== END 2020-04-23 00:15 | disposition home or self-care (01) ==
LOC: FB.ED 19:22
DX: U07.1 COVID-19 (principal); J06.9 Acute upper respiratory infection, unspecified; E86.0 Dehydration; I12.9 Hypertensive chronic kidney disease with stage 1 through stage 4 chronic kidney disease, or unspecified chronic kidney disease; E11.22 Type 2 diabetes mellitus with diabetic chronic kidney disease; N18.9 Chronic kidney disease, unspecified; E11.42 Type 2 diabetes mellitus with diabetic polyneuropathy; Z68.43 Body mass index [BMI] 50.0-59.9, adult; Z79.82 Long term (current) use of aspirin; Z79.4 Long term (current) use of insulin; Z90.49 Acquired absence of other specified parts of digestive tract; Z79.899 Other long term (current) drug therapy
CPT/HCPCS: 36415; 71045; 80053; 81001; 83690; 83735; 84484; 85025; 93005; 96374; 99284; A9270; J2405; J7030; J7040; U0002; 93010

== ENCOUNTER 2020-04-30 17:23 | Inpatient (IN) | payer MEDICARE, MEDICAID ==
[2020-04-30] MEDS ORDERED: Dexamethasone 4 MG/ML SDV IVPUSH ONE (17:47)
[2020-04-30] MEDS ORDERED: Aspirin 81 MG Tab.Chew PO ONE (17:47)
--- NOTE | 2020-04-30 17:54 | EDM.PDOC ---
ED HPI GENERAL MEDICAL PROBLEM - General Chief Complaint: Respiratory Problem Stated Complaint: COVID Time Seen by Provider: 04/30/20 17:35 Source of Information: Reports: Patient History Limitations: Reports: No Limitations, Other - History of Present Illness INITIAL COMMENTS - FREE TEXT/NARRATIVE: pt was seen on thursday and diagnosed iwth COVID States she is having diffiuclty breathing has been coughing has body aches and pains , and not able to ambulate well Onset: Gradual Onset Date: 04/28/20 Duration: Day(s): Location: Reports: Chest, Generalized Quality: Reports: Ache Severity: Moderate Improves with: Reports: None Worsens with: Reports: None Context: Reports: Sick Contact Associated Symptoms: Reports: Cough, Fever/Chills, Headaches, Loss of Appetite, Malaise, Shortness of Breath, Weakness - Related Data Allergies Allergy/AdvReac Type Severity Reaction Status Date / Time No Known Allergies Allergy Verified 04/24/20 17:05 Home Meds: Home Meds Insulin Glarg,Human.Rec.Analog [Lantus] 40 units SQ BEDTIME 03/01/18 [History] Acetaminophen [Tylenol Extra Strength] 1,000 mg PO TID 03/02/18 [History] Aspirin [Halfprin] 81 mg PO DAILY 03/02/18 [History] Lisinopril 20 mg PO DAILY 03/02/18 [History] Latanoprost [Xalatan 0.005% Ophth Soln] 1 drop EYEBOTH BEDTIME 12/07/18 [History] Propylene Glycol [Systane Balance] 1 drop EYEBOTH Q4H PRN 12/07/18 [History] polyethylene glycoL 3350 [MiraLAX] 17 gm PO BID 12/07/18 [History] Hydrocodone/Acetaminophen [[place] 5-325 Tablet] 1 each PO QID PRN #50 tablet 12/18/18 [Rx] Insulin Glarg,Human.Rec.Analog [Lantus Solostar] 20 units SUBCUT BEDTIME pen 12/18/18 [Rx] Pregabalin [Lyrica] 75 mg PO BID #60 cap 12/18/18 [Rx] fentaNYL [Duragesic] 12 mcg TRDERM Q72H #5 patch 12/18/18 [Rx] Ondansetron [Zofran ODT] 4 mg PO Q6H PRN #10 tab.dis 04/22/20 [Rx] Past Medical History HEENT History: Reports: Cataract, Glaucoma, Impaired Vision Cardiovascular History: Reports: Hypertension Respiratory History: Reports: None Gastrointestinal History: Reports: Chronic Constipation, GERD Other Gastrointestinal History: Periumbilicial hernia. States she has "liver" problems. Genitourinary History: Reports: Chronic Renal Insuffiency, Renal Calculus Other Genitourinary History: Patient tells us she is now stage 4 kidney failure. [employer] History: Reports: Musculoskeletal History: Reports: Back Pain, Chronic, Osteoarthritis, Other (See Below) Other Musculoskeletal History: Compression fracture of L1 vertebrae, 11/2018. Neurological History: Reports: Neuropathy, Peripheral Other Neuro History: Fracture of L1. Psychiatric History: Reports: Depression Endocrine/Metabolic History: Reports: Diabetes, Type II Hematologic History: Reports: None Immunologic History: Reports: None Oncologic (Cancer) History: Reports: None Dermatologic History: Reports: None - Infectious Disease History Infectious Disease History: Reports: Chicken Pox, Measles, Mumps, Other (See Below) Other Infectious Disease History: Covid positive, March 2020. - Past Surgical History GI Surgical History: Reports: Cholecystectomy Female Surgical History: Reports: Section Social & Family History - Family History Family Medical History: No Pertinent Family History - Caffeine Use Caffeine Use: Reports: Coffee Other Caffeine Use: 2-3 cups daily - Living Situation & Occupation Living situation: Reports: Other (She lives with her daughter.) Occupation: Retired ED ROS GENERAL - Review of Systems Review Of Systems: See Below Constitutional: Reports: Fever, Chills, Malaise, Weakness, Fatigue, Night Sweats, Diaphoresis, Decreased Appetite HEENT: Reports: Rhinitis Respiratory: Reports: Shortness of Breath, Wheezing, Pleuritic Chest Pain, Cough, Sputum Cardiovascular: Reports: No Symptoms, Chest Pain Endocrine: Reports: Fatigue GI/Abdominal: Reports: Anorexia, Diarrhea, Decreased Appetite : Reports: No Symptoms Musculoskeletal: Reports: Back Pain, Muscle Pain Skin: Reports: No Symptoms Neurological: Reports: No Symptoms Psychiatric: Reports: Agitation Hematologic/Lymphatic: Reports: No Symptoms Immunologic: Reports: No Symptoms ED EXAM, GENERAL - Physical Exam Exam: See Below Exam Limited By: Physical Impairment General Appearance: Alert, Lethargic, Other (ill looking) Eye Exam: Bilateral Eye: EOMI Ears: Normal External Exam Nose: Normal Inspection Throat/Mouth: Normal Inspection, Normal Oropharynx Head: Atraumatic, Normocephalic Neck: Normal Inspection, Supple, Non-Tender Respiratory/Chest: Decreased Breath Sounds, Crackles, Rales, Rhonchi Cardiovascular: Regular Rate, Rhythm GI/Abdominal: Soft, Non-Tender Back Exam: Full Range of Motion Extremities: Normal Inspection, Normal Range of Motion Neurological: Alert, Oriented, CN II-XII Intact Psychiatric: Normal Affect, Normal Mood Skin Exam: Dry, Intact Lymphatic: No Adenopathy Course - Vital Signs Last Recorded V/S: Last Vital Signs Temp 36.7 C 04/30/20 20:58 Pulse 71 04/30/20 20:58 Resp 20 04/30/20 20:58 BP 146/46 H 04/30/20 20:58 Pulse Ox 93 L 04/30/20 20:58 - Orders/Labs/Meds Orders: Active Orders 24 hr Category Date Time Status Patient Status [ADT] Routine ADT 04/30/20 18:59 Active Ambulate [RC] PER UNIT ROUTINE Care 04/30/20 18:59 Active Antiembolic Devices [RC] .Routine Care 04/30/20 19:05 Active Intake and Output [RC] QSHIFT Care 04/30/20 19:06 Active Oxygen Therapy [RC] CONTINUOUS Care 04/30/20 19:06 Active Pulse Oximetry [RC] CONTINUOUS Care 04/30/20 19:06 Active Up With Assistance [RC] ASDIRECTED Care 04/30/20 18:59 Active VTE/DVT Education [RC] Click to Edit Care 04/30/20 19:05 Active Vital Signs [RC] Q4H Care 04/30/20 18:59 Active Nothing per Oral Now Diet [DIET] Diet 04/30/20 Breakfast Ordered HEPATIC FUNCTION PANEL,HFP [CHEM] DAILY Lab 05/01/20 19:00 Ordered HEPATIC FUNCTION PANEL,HFP [CHEM] DAILY Lab 05/02/20 19:00 Ordered HEPATIC FUNCTION PANEL,HFP [CHEM] DAILY Lab 05/03/20 19:00 Ordered HEPATIC FUNCTION PANEL,HFP [CHEM] DAILY Lab 05/04/20 19:00 Ordered Acetaminophen [TylenoL] Med 04/30/20 19:07 Active 1,000 mg PO Q6H PRN Ascorbic Acid [Vitamin C] Med 04/30/20 21:00 Active 500 mg PO BID Enoxaparin [Lovenox] Med 04/30/20 19:15 Active 100 mg SUBCUT Q12H Magnesium Hydroxide [Milk of Magnesia] Med 04/30/20 19:07 Active 30 ml PO BID PRN Sodium Chloride 0.9% [Normal Saline] 1,000 ml Med 04/30/20 18:00 Active IV ASDIRECTED Sodium Chloride 0.9% [Normal Saline] 1,000 ml Med 04/30/20 18:45 Active IV ASDIRECTED Zinc Sulfate [Zincate] Med 05/01/20 09:00 Active 220 mg PO DAILY dexAMETHasone [Decadron] Med 05/01/20 09:00 Active 8 mg IVPUSH DAILY DVT/VTE Prophylaxis Reflex [OM.PC] Per Unit Routine Oth 04/30/20 18:59 Ordered Resuscitation Status Routine Resus Stat 04/30/20 18:59 Ordered Medication Orders Acetaminophen (Tylenol) 1,000 mg PO Q6H PRN PRN Reason: analgesia/fever Ascorbic Acid (Vitamin C) 500 mg PO BID [facility] Last Admin: 04/30/20 20:12 Dose: 500 mg Documented by: MENDOZA Dexamethasone (Decadron) 8 mg IVPUSH DAILY [facility] Enoxaparin Sodium (Lovenox) 100 mg SUBCUT Q12H [facility] Last Admin: 04/30/20 19:58 Dose: Not Given Documented by: MOHAMUDCAL Sodium Chloride (Normal Saline) 1,000 mls @ 999 mls/hr IV ASDIRECTED [facility] Last Infusion: 04/30/20 18:57 Dose: 500 mls/hr Documented by: Admin: 04/30/20 17:57 Dose: 999 mls/hr Documented by: DIFFCAL Sodium Chloride (Normal Saline) 1,000 mls @ 500 mls/hr IV ASDIRECTED EDSON Magnesium Hydroxide (Milk Of Magnesia) 30 ml PO BID PRN PRN Reason: Constipation Zinc Sulfate (Zincate) 220 mg PO DAILY [facility] Labs: Laboratory Tests 04/30/20 04/30/20 04/30/20 Range/Units 18:02 18:02 18:02 WBC 12.8 H (3.0-10.3) x10-3/uL RBC 3.69 (3.60-5.20) x10(6)uL Hgb 10.3 L (11.4-15.5) g/dL Hct 32.2 L (34.2-48.2) % MCV 87.2 (76.7-100.5) fL MCH 27.9 (23.9-33.9) pg MCHC 32.0 (31.9-34.8) g/dL RDW 13.8 (12.3-16.5) % Plt Count 346 (151-488) x10(3)uL MPV 8.6 (7.1-12.4) fL Neut % (Auto) 85.6 H (30.8-76.2) % Lymph % (Auto) 6.1 L (18.4-52.1) % [place] % (Auto) 7.9 (4.4-15.7) % Eos % (Auto) 0.1 L (0.6-8.1) % Baso % (Auto) 0.3 (0.2-1.5) % Neut # (Auto) 11.0 H (1.5-6.3) x10-3/uL Lymph # (Auto) 0.8 L (1.0-4.4) x10-3/uL [place] # (Auto) 1.0 (0.3-1.0) x10-3/uL Eos # (Auto) 0.0 (0.0-0.8) x10-3/uL Baso # (Auto) 0.0 (0.0-0.1) x10-3/uL PT 10.8 (9.0-11.1) sec INR 1.00 (1.00-1.24) D-Dimer, Quantitative 1.23 H (0.0-0.59) mg/LFEU Sodium 145 (135-145) mmol/L Potassium 4.9 (3.5-5.3) mmol/L Chloride 106 D (100-110) mmol/L Carbon Dioxide 25 (21-32) mmol/L BUN 62 H D (7-18) mg/dL Creatinine 2.2 H* (0.55-1.02) mg/dL Est Cr Clr Drug Dosing TNP Estimated GFR (MDRD) 22 L (>60) BUN/Creatinine Ratio 28.2 H (9-20) Glucose 245 H D (80-116) mg/dL Calcium 8.7 (8.6-10.2) mg/dL Total Bilirubin 0.6 (0.1-1.3) mg/dL Direct Bilirubin (0.10-0.20) mg/dL AST 30 H D (5-25) IU/L ALT 19 D (12-36) U/L Alkaline Phosphatase 98 (56-112) IU/L C-Reactive Protein (0.5-0.9) mg/dL Total Protein 8.3 H (6.0-8.0) g/dL Albumin 2.4 L (3.2-4.6) g/dL Globulin 5.9 g/dL Albumin/Globulin Ratio 0.4 04/30/20 04/30/20 Range/Units 18:02 18:02 WBC (3.0-10.3) x10-3/uL RBC (3.60-5.20) x10(6)uL Hgb (11.4-15.5) g/dL Hct (34.2-48.2) % MCV (76.7-100.5) fL MCH (23.9-33.9) pg MCHC (31.9-34.8) g/dL RDW (12.3-16.5) % Plt Count (151-488) x10(3)uL MPV (7.1-12.4) fL Neut % (Auto) (30.8-76.2) % Lymph % (Auto) (18.4-52.1) % [place] % (Auto) (4.4-15.7) % Eos % (Auto) (0.6-8.1) % Baso % (Auto) (0.2-1.5) % Neut # (Auto) (1.5-6.3) x10-3/uL Lymph # (Auto) (1.0-4.4) x10-3/uL [place] # (Auto) (0.3-1.0) x10-3/uL Eos # (Auto) (0.0-0.8) x10-3/uL Baso # (Auto) (0.0-0.1) x10-3/uL PT (9.0-11.1) sec INR (1.00-1.24) D-Dimer, Quantitative (0.0-0.59) mg/LFEU Sodium (135-145) mmol/L Potassium (3.5-5.3) mmol/L Chloride (100-110) mmol/L Carbon Dioxide (21-32) mmol/L BUN (7-18) mg/dL Creatinine (0.55-1.02) mg/dL Est Cr Clr Drug Dosing Estimated GFR (MDRD) (>60) BUN/Creatinine Ratio (9-20) Glucose (80-116) mg/dL Calcium (8.6-10.2) mg/dL Total Bilirubin 0.6 (0.1-1.3) mg/dL Direct Bilirubin 0.26 H (0.10-0.20) mg/dL AST 31 H (5-25) IU/L ALT 19 (12-36) U/L Alkaline Phosphatase 98 (56-112) IU/L C-Reactive Protein 17.2 H* (0.5-0.9) mg/dL Total Protein 8.3 H (6.0-8.0) g/dL Albumin 2.3 L (3.2-4.6) g/dL Globulin g/dL Albumin/Globulin Ratio Meds: Medications Generic Name Dose Route Start Last Admin Trade Name Freq PRN Reason Stop Dose Admin Acetaminophen 1,000 mg 04/30/20 19:07 Tylenol PO Q6H PRN analgesia/fever Ascorbic Acid 500 mg 04/30/20 21:00 04/30/20 20:12 Vitamin C PO 500 mg BID EDSON Administration Dexamethasone 8 mg 05/01/20 09:00 Decadron IVPUSH DAILY EDSON Enoxaparin Sodium 100 mg 04/30/20 19:15 04/30/20 19:58 Lovenox SUBCUT Not Given Q12H EDSON Sodium Chloride 1,000 mls @ 999 mls/hr 04/30/20 18:00 04/30/20 18:57 Normal Saline IV 500 mls/hr ASDIRECTED EDSON Infusion Sodium Chloride 1,000 mls @ 500 mls/hr 04/30/20 18:45 Normal Saline IV ASDIRECTED EDSON Magnesium Hydroxide 30 ml 04/30/20 19:07 Milk Of Magnesia PO BID PRN Constipation Zinc Sulfate 220 mg 05/01/20 09:00 Zincate PO DAILY EDSON Discontinued Medications Generic Name Dose Route Start Last Admin Trade Name Freq PRN Reason Stop Dose Admin Aspirin 324 mg 04/30/20 17:47 04/30/20 17:56 Aspirin PO 04/30/20 17:48 324 mg ONETIME ONE Administration Dexamethasone 8 mg 04/30/20 17:47 04/30/20 17:57 Decadron IVPUSH 04/30/20 17:48 8 mg ONETIME ONE Administration Enoxaparin Sodium 100 mg 04/30/20 18:40 04/30/20 18:57 Lovenox SUBCUT 04/30/20 18:41 100 mg ONETIME ONE Administration Remdesivir 200 mg/ Sodium 250 mls @ 200 mls/hr 04/30/20 18:56 04/30/20 20:26 Chloride IV 04/30/20 20:10 200 mls/hr ONETIME ONE Administration - Re-Assessments/Exams Free Text/Narrative Re-Assessment/Exam: 04/30/20 22:04 pt started on IVF , decadron, CT chest done : confirms pneumonia pt was initially placed on oxygen via neasal cannula. tehn taken off: her oxygen level decrease to 88% O2 via NC restarted , pt given zofran , lovenox , Aspirin decision made to admit pt Discussed same with her daughter who agreed 04/30/20 22:15 Departure - Departure Time of Disposition: 22:00 Disposition: Admitted As Inpatient 68 Condition: Fair Clinical Impression: Hypoxia, Hypoxemia, Dehydration, Chronic kidney disease, stage 4 (severe) - Discharge Information *PRESCRIPTION DRUG MONITORING PROGRAM REVIEWED*: Not Applicable *COPY OF PRESCRIPTION DRUG MONITORING REPORT IN PATIENT KEON: Not Applicable Sepsis Event Note (ED) - Focused Exam Vital Signs: Vital Signs Temp Pulse Resp BP Pulse Ox 04/30/20 18:45 37.5 C 22 H 88 L 04/30/20 17:25 37.1 C 99 22 H 161/65 H 92 L - My Orders Last 24 Hours: My Active Orders 04/30/20 Breakfast Nothing per Oral Now Diet [DIET] 04/30/20 18:00 Sodium Chloride 0.9% [Normal Saline] 1,000 ml IV ASDIRECTED 04/30/20 18:45 Sodium Chloride 0.9% [Normal Saline] 1,000 ml IV ASDIRECTED 04/30/20 18:59 Patient Status [ADT] Routine Ambulate [RC] PER UNIT ROUTINE Up With Assistance [RC] ASDIRECTED Vital Signs [RC] Q4H DVT/VTE Prophylaxis Reflex [OM.PC] Per Unit Routine Resuscitation Status Routine 04/30/20 19:05 Antiembolic Devices [RC] .Routine VTE/DVT Education [RC] Click to Edit 04/30/20 19:06 Intake and Output [RC] QSHIFT Oxygen Therapy [RC] CONTINUOUS Pulse Oximetry [RC] CONTINUOUS 04/30/20 19:07 Acetaminophen [TylenoL] 1,000 mg PO Q6H PRN Magnesium Hydroxide [Milk of Magnesia] 30 ml PO BID PRN 04/30/20 19:15 Enoxaparin [Lovenox] 100 mg SUBCUT Q12H 04/30/20 21:00 Ascorbic Acid [Vitamin C] 500 mg PO BID 05/01/20 09:00 Zinc Sulfate [Zincate] 220 mg PO DAILY dexAMETHasone [Decadron] 8 mg IVPUSH DAILY 05/01/20 19:00 HEPATIC FUNCTION PANEL,HFP [CHEM] DAILY 05/02/20 19:00 HEPATIC FUNCTION PANEL,HFP [CHEM] DAILY 05/03/20 19:00 HEPATIC FUNCTION PANEL,HFP [CHEM] DAILY 05/04/20 19:00 HEPATIC FUNCTION PANEL,HFP [CHEM] DAILY - Assessment/Plan Last 24 Hours: My Active Orders 04/30/20 Breakfast Nothing per Oral Now Diet [DIET] 04/30/20 18:00 Sodium Chloride 0.9% [Normal Saline] 1,000 ml IV ASDIRECTED 04/30/20 18:45 Sodium Chloride 0.9% [Normal Saline] 1,000 ml IV ASDIRECTED 04/30/20 18:59 Patient Status [ADT] Routine Ambulate [RC] PER UNIT ROUTINE Up With Assistance [RC] ASDIRECTED Vital Signs [RC] Q4H DVT/VTE Prophylaxis Reflex [OM.PC] Per Unit Routine Resuscitation Status Routine 04/30/20 19:05 Antiembolic Devices [RC] .Routine VTE/DVT Education [RC] Click to Edit 04/30/20 19:06 Intake and Output [RC] QSHIFT Oxygen Therapy [RC] CONTINUOUS Pulse Oximetry [RC] CONTINUOUS 04/30/20 19:07 Acetaminophen [TylenoL] 1,000 mg PO Q6H PRN Magnesium Hydroxide [Milk of Magnesia] 30 ml PO BID PRN 04/30/20 19:15 Enoxaparin [Lovenox] 100 mg SUBCUT Q12H 04/30/20 21:00 Ascorbic Acid [Vitamin C] 500 mg PO BID 05/01/20 09:00 Zinc Sulfate [Zincate] 220 mg PO DAILY dexAMETHasone [Decadron] 8 mg IVPUSH DAILY 05/01/20 19:00 HEPATIC FUNCTION PANEL,HFP [CHEM] DAILY 05/02/20 19:00 HEPATIC FUNCTION PANEL,HFP [CHEM] DAILY 05/03/20 19:00 HEPATIC FUNCTION PANEL,HFP [CHEM] DAILY 05/04/20 19:00 HEPATIC FUNCTION PANEL,HFP [CHEM] DAILY
[2020-04-30] MEDS ORDERED: Sodium Chloride 0.9% 1,000 ML IV SCH ×2 (18:00→18:45)
[2020-04-30] MEDS ORDERED: Enoxaparin 100 MG/1 ML Syringe SUBCUT ONE (18:40)
[2020-04-30] MEDS ORDERED: REMDESIVIR 200 MG in Sodium Chloride 0.9% 250 ML IV ONE (18:56)
[2020-04-30] MEDS ORDERED: Magnesium Hydroxide 400 MG/5 ML Susp 30 ML Cup PO PRN (19:07)
[2020-04-30] MEDS ORDERED: Acetaminophen 325 MG Tab PO PRN (19:07)
[2020-04-30] MEDS: Enoxaparin 100 MG/1 ML Syringe SUBCUT SCH (19:58)
[2020-04-30] MEDS: Ascorbic Acid 500 MG Tab PO SCH (20:12)
--- NOTE | 2020-04-30 21:33 | CT ---
CT CHEST WITHOUT CONTRAST INDICATION: Fever, chills, body aches, difficult breathing, headaches, loss of appetite, weakness, positive for Covid on 04/22/2020. Spiral 3.75 mm axial sections were obtained through the chest without contrast with sagittal and coronal reconstructions 04/30/2020 and compared with chest x- ray from 04/22/2020. Total exam DLP was 721.44 mGy-cm. Rather extensive ground glass infiltration, mostly pleural based, is noted scattered throughout the lungs bilaterally and appearing to affect all lobes. No definite nodule or masses were identified. No pleural effusion was seen. The heart appears similar in size and within normal limits or slightly enlarged. Evidence of cholecystectomy is noted in the upper abdomen included on this study. Calcifications are noted in the splenic artery. No pericardial effusion was seen. No mediastinal mass was identified. Mediastinal lymphadenopathy is mild with some calcified lymph nodes suggested which may be on the basis of previous granulomatous disease but should be correlated clinically. IMPRESSION: Extensive infiltration compatible with Covid 19--correlate clinically. Report was called to Dr. Ortiz at 1830 hours. [facility]
[2020-04-30] MEDS ORDERED: 50% Dextrose in Water 50 ML Syringe IVPUSH PRN (22:17)
[2020-04-30] MEDS ORDERED: Glucagon,Human Recombinant 1 MG Vial IM PRN (22:17)
[2020-04-30] MEDS: Insulin Glargine,Human Rec. Analog 100 Units/ML 3 ML Pen SUBCUT SCH (23:00)
[2020-04-30] MEDS ORDERED: Insulin Glargine,Human Rec. Analog 100 Units/ML 3 ML Pen SUBCUT ONE (23:16)
[2020-05-01] MEDS: Sodium Chloride 0.9% 1,000 ML IV SCH ×2 (00:08→08:20)
[2020-05-01] MEDS: Enoxaparin 100 MG/1 ML Syringe SUBCUT SCH (06:15)
[2020-05-01] MEDS ORDERED: Acetaminophen 500 MG Tab PO PRN (07:43)
--- OUTSIDE RECORDS SUMMARY | 2020-05-01 08:45 | XMSREPORT ---
:1945 Author Name Myra Khan R.N. Address Unavailable Unavailable , Care Team Providers Name Role Phone Myra Khan R.N. Unavailable Unavailable Ritika Wright Unavailable Unavailable Unavailable Unavailable Unavailable Reason for Referral Hospital Admission Assessments No Information Problems Type 2 diabetes mellitus (250.00) (E11.9) High cholesterol (272.0) (E78.00) Fall from slipping on ice (E885.9) (W00.9XXA) Pain of left knee after injury (719.46) (M25.562) Osteoarthritis (715.90) (M19.90) Benign essential hypertension (401.1) (I10) Diabetic retinopathy, nonproliferative, mild (250.50) (E11.3 299) Neuropathy, peripheral (356.9) (G62.9) Primary open-angle glaucoma, moderate stage (365.11) (H40.11 92) Pseudophakia (V43.1) (Z96.1) Chronic bilateral low back pain (724.2) (M54.5) Depression (311) (F32.9) Left knee pain (719.46) (M25.562) Right low back pain (724.2) (M54.5) Allergies and Adverse Reactions No Known Drug Allergies (Allergy) Medications Latanoprost 0.005 % Ophthalmic Solution Refills: 0 Systane Balance 0.6 % SOLN Refills: 0 Tylenol Extra Strength 500 MG Oral Tablet; TAKE 1 TABLET RI N Start: 29-Nov-2018 Refills: 0 Lyrica 150 MG Oral Capsule; TAKE 1 CAPSULE BY MOUTH TWICE A DAY Start: 05-May-2018 Refills: 0 Lisinopril 20 MG Oral Tablet; TAKE 1 TABLET (20 MG) BY MOUTH 1 TIME PER DAY Start: 05-May-2018 Quantity: 90 Refills: 0 Lantus SoloStar 100 UNIT/ML Subcutaneous Solution Pen-inject or Start: 05-May-2018 Quantity: 15 Refills: 0 SM Aspirin Adult Low Strength 81 MG Oral Tablet Delayed Release; TAKE 1 TABLET (81 MG) BY MOUTH 1 TIME PER DAY Start: 20-Oct-2017 Quantity: 90 Refills: 0 Procedures History of Gallbladder surgery Status: C ompleted History of section Status: Comp leted Immunizations Immunizations not documented Family History Family history of cardiac disorder (V17.49) Status: Active Comments: Family History (Z82.49) Social History - Never smoked tobacco Recorded: Plan of Treatment Planned Goals not documented Results No Known Results Results not documented
[2020-05-01] MEDS ORDERED: Ondansetron 4 MG Tab.DIS PO PRN (08:50)
[2020-05-01] MEDS ORDERED: Polyvinyl Alcohol 1.4% Ophth Soln 15 ML Bottle EYEBOTH PRN (09:05)
[2020-05-01] MEDS: Ferrous Sulfate 325 MG Tab PO SCH (09:48)
[2020-05-01] MEDS: DULoxetine 60 MG Cap PO SCH (09:48)
[2020-05-01] MEDS: atorvaSTATin 20 MG Tab PO SCH (09:48)
[2020-05-01] MEDS: Timolol Maleate 0.5% Ophth Soln 5 ML Bottle EYEBOTH SCH (09:49)
[2020-05-01] MEDS: Acetaminophen 500 MG Tab PO SCH ×3 (09:49→20:35)
[2020-05-01] MEDS: Lisinopril 20 MG Tab PO SCH (09:49)
[2020-05-01] MEDS: Dexamethasone 4 MG/ML SDV IVPUSH SCH (09:50)
[2020-05-01] MEDS: Lactated Ringers 1,000 ML IV SCH ×2 (09:50→17:59)
[2020-05-01] MEDS: Ascorbic Acid 500 MG Tab PO SCH ×2 (09:50→20:35)
[2020-05-01] MEDS: Zinc Sulfate 220 MG Cap PO SCH (09:50)
[2020-05-01] MEDS: Pregabalin 100 MG Cap PO SCH ×3 (09:52→20:35)
--- NOTE | 2020-05-01 10:58 | PCM.HP.2 ---
H&P History of Present Illness - General Date of Service: 05/01/20 Admit Problem/Dx: Admission Diagnosis/Problem Admission Diagnosis/Problem Hypoxia Source of Information: Patient, EMS Notes Reviewed - History of Present Illness Initial Comments - Free Text/Narative: Elissa presented to ER yesterday for worsening shortness of breath, nausea, vomiting, decreased appetite. She was seen in ER on 04/22 for 3 day history of sinus congestion, body aches, cough and was positive for Covid, she had negative chest x-ray at that time, was saturating at 97% on Room air, received IV fluids and discharged home. Returned last night with worsening symptoms that started on Saturday 04/28, desaturated to 80% in ER, was placed on 2L of oxygen. She did receive dose of Remdesivir in ER but not continued on the floor due to her kidney function is <30. She also was started in ER on Lovenox 100 mg q12, based on her GFR she will be changed to 0.5 mg/kg daily. D Dimer was 1.23. CBC 12.8. CT chest showed bilateral ground glass opacities scattered throughout all lobes bilaterally, consistent with Covid-19 pneumonia. History of Diabetes on insulin, Chronic Kidney Disease, obesity, Glaucoma. - Related Data Allergies/Adverse Reactions: Allergies Allergy/AdvReac Type Severity Reaction Status Date / Time No Known Allergies Allergy Verified 04/24/20 17:05 Home Medications: Home Meds Insulin Glarg,Human.Rec.Analog [Lantus] 38 units SQ BEDTIME 03/01/18 [History] Acetaminophen [Tylenol Extra Strength] 1,000 mg PO TID 03/02/18 [History] Aspirin [Halfprin] 81 mg PO DAILY 03/02/18 [History] Latanoprost [Xalatan 0.005% Ophth Soln] 1 drop EYEBOTH BEDTIME 12/07/18 [History] Propylene Glycol [Systane Balance] 1 drop EYEBOTH Q4H PRN 12/07/18 [History] Ondansetron [Zofran ODT] 4 mg PO Q6H PRN #10 tab.dis 04/22/20 [Rx] DULoxetine [Cymbalta] 60 mg PO DAILY 05/01/20 [History] Ferrous Fumarate/Vitamin C [Vitron-C] 1 tab PO DAILY 05/01/20 [History] Pregabalin [Lyrica] 100 mg PO TID 05/01/20 [History] Timolol [Betimol 0.5% Ophth Soln] 1 drop EYEBOTH DAILY 05/01/20 [History] atorvaSTATin [Lipitor] 20 mg PO DAILY 05/01/20 [History] lisinopriL [Lisinopril] 20 mg PO DAILY 05/01/20 [History] Past Medical History HEENT History: Reports: Cataract, Glaucoma, Impaired Vision Cardiovascular History: Reports: Hypertension Respiratory History: Reports: None Gastrointestinal History: Reports: Chronic Constipation, GERD Other Gastrointestinal History: Periumbilicial hernia. States she has "liver" problems. Genitourinary History: Reports: Chronic Renal Insuffiency, Renal Calculus Other Genitourinary History: Patient tells us she is now stage 4 kidney failure. 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 Neurological History: Reports: Neuropathy, Peripheral Other Neuro History: Fracture of L1. Psychiatric History: Reports: Depression Endocrine/Metabolic History: Reports: Diabetes, Type II Hematologic History: Reports: None Immunologic History: Reports: None Oncologic (Cancer) History: Reports: None Dermatologic History: Reports: None - Infectious Disease History Infectious Disease History: Reports: Chicken Pox, Measles, Mumps, Novel Coronavirus, Other (See Below) Other Infectious Disease History: Covid positive, March 2020. - Past Surgical History Head Surgeries/Procedures: Reports: None HEENT Surgical History: Reports: Cataract Surgery Cardiovascular Surgical History: Reports: Varicose Respiratory Surgical History: Reports: None GI Surgical History: Reports: Cholecystectomy Female Surgical History: Reports: Section Endocrine Surgical History: Reports: None Musculoskeletal Surgical History: Reports: None Oncologic Surgical History: Reports: None Social & Family History - Family History Family Medical History: No Pertinent Family History - Tobacco Use Tobacco Use Status *Q: Never Tobacco User Second Hand Smoke Exposure: No - Caffeine Use Caffeine Use: Reports: Coffee, Other Other Caffeine Use: 2-3cups daily - Recreational Drug Use Recreational Drug Use: No - Living Situation & Occupation Living situation: Reports: Other (She lives with her daughter.) Occupation: Retired H&P Review of Systems - Review of Systems: Review Of Systems: Unable To Obtain Reason Not Obtained: Patient moaning and only answering yes and no questions. Exam - Exam Exam: See Below - Vital Signs Vital Signs: Last Vital Signs Temp 98.1 F 05/01/20 06:03 Pulse 72 05/01/20 06:03 Resp 20 05/01/20 06:03 BP 139/74 05/01/20 09:49 Pulse Ox 92 L 05/01/20 06:03 Weight: 209 lb 1 oz - Exam Quality Assessment: Supplemental Oxygen General: Cooperative, Mild Distress Lungs: Normal Respiratory Effort, Decreased Breath Sounds, Crackles (throughout). No: Wheezing Cardiovascular: Regular Rate, Regular Rhythm GI/Abdominal Exam: Normal Bowel Sounds, Soft, Non-Tender, No Distention (Female) Exam: Deferred Rectal (Female) Exam: Deferred Extremities: No Pedal Edema (Bilateral SCDs on BLE) - Patient Data Lab Results Last 24 hrs: Laboratory Results - last 24 hr 04/30/20 04/30/20 04/30/20 Range/Units 18:02 18:02 18:02 WBC 12.8 H (3.0-10.3) x10-3/uL RBC 3.69 (3.60-5.20) x10(6)uL Hgb 10.3 L (11.4-15.5) g/dL Hct 32.2 L (34.2-48.2) % MCV 87.2 (76.7-100.5) fL MCH 27.9 (23.9-33.9) pg MCHC 32.0 (31.9-34.8) g/dL RDW 13.8 (12.3-16.5) % Plt Count 346 (151-488) x10(3)uL MPV 8.6 (7.1-12.4) fL Neut % (Auto) 85.6 H (30.8-76.2) % Lymph % (Auto) 6.1 L (18.4-52.1) % Hughes % (Auto) 7.9 (4.4-15.7) % Eos % (Auto) 0.1 L (0.6-8.1) % Baso % (Auto) 0.3 (0.2-1.5) % Neut # (Auto) 11.0 H (1.5-6.3) x10-3/uL Lymph # (Auto) 0.8 L (1.0-4.4) x10-3/uL Hughes # (Auto) 1.0 (0.3-1.0) x10-3/uL Eos # (Auto) 0.0 (0.0-0.8) x10-3/uL Baso # (Auto) 0.0 (0.0-0.1) x10-3/uL PT 10.8 (9.0-11.1) sec INR 1.00 (1.00-1.24) D-Dimer, Quantitative 1.23 H (0.0-0.59) mg/LFEU Sodium 145 (135-145) mmol/L Potassium 4.9 (3.5-5.3) mmol/L Chloride 106 D (100-110) mmol/L Carbon Dioxide 25 (21-32) mmol/L BUN 62 H D (7-18) mg/dL Creatinine 2.2 H* (0.55-1.02) mg/dL Est Cr Clr Drug Dosing TNP Estimated GFR (MDRD) 22 L (>60) BUN/Creatinine Ratio 28.2 H (9-20) Glucose 245 H D (80-116) mg/dL POC Glucose (74-100) mg/dL Calcium 8.7 (8.6-10.2) mg/dL Total Bilirubin 0.6 (0.1-1.3) mg/dL Direct Bilirubin (0.10-0.20) mg/dL AST 30 H D (5-25) IU/L ALT 19 D (12-36) U/L Alkaline Phosphatase 98 (56-112) IU/L C-Reactive Protein (0.5-0.9) mg/dL Total Protein 8.3 H (6.0-8.0) g/dL Albumin 2.4 L (3.2-4.6) g/dL Globulin 5.9 g/dL Albumin/Globulin Ratio 0.4 04/30/20 04/30/20 04/30/20 Range/Units 18:02 18:02 21:35 WBC (3.0-10.3) x10-3/uL RBC (3.60-5.20) x10(6)uL Hgb (11.4-15.5) g/dL Hct (34.2-48.2) % MCV (76.7-100.5) fL MCH (23.9-33.9) pg MCHC (31.9-34.8) g/dL RDW (12.3-16.5) % Plt Count (151-488) x10(3)uL MPV (7.1-12.4) fL Neut % (Auto) (30.8-76.2) % Lymph % (Auto) (18.4-52.1) % Hughes % (Auto) (4.4-15.7) % Eos % (Auto) (0.6-8.1) % Baso % (Auto) (0.2-1.5) % Neut # (Auto) (1.5-6.3) x10-3/uL Lymph # (Auto) (1.0-4.4) x10-3/uL Hughes # (Auto) (0.3-1.0) x10-3/uL Eos # (Auto) (0.0-0.8) x10-3/uL Baso # (Auto) (0.0-0.1) x10-3/uL PT (9.0-11.1) sec INR (1.00-1.24) D-Dimer, Quantitative (0.0-0.59) mg/LFEU Sodium (135-145) mmol/L Potassium (3.5-5.3) mmol/L Chloride (100-110) mmol/L Carbon Dioxide (21-32) mmol/L BUN (7-18) mg/dL Creatinine (0.55-1.02) mg/dL Est Cr Clr Drug Dosing Estimated GFR (MDRD) (>60) BUN/Creatinine Ratio (9-20) Glucose (80-116) mg/dL POC Glucose 255 H (74-100) mg/dL Calcium (8.6-10.2) mg/dL Total Bilirubin 0.6 (0.1-1.3) mg/dL Direct Bilirubin 0.26 H (0.10-0.20) mg/dL AST 31 H (5-25) IU/L ALT 19 (12-36) U/L Alkaline Phosphatase 98 (56-112) IU/L C-Reactive Protein 17.2 H* (0.5-0.9) mg/dL Total Protein 8.3 H (6.0-8.0) g/dL Albumin 2.3 L (3.2-4.6) g/dL Globulin g/dL Albumin/Globulin Ratio 05/01/20 05/01/20 Range/Units 05:45 08:15 WBC (3.0-10.3) x10-3/uL RBC (3.60-5.20) x10(6)uL Hgb (11.4-15.5) g/dL Hct (34.2-48.2) % MCV (76.7-100.5) fL MCH (23.9-33.9) pg MCHC (31.9-34.8) g/dL RDW (12.3-16.5) % Plt Count (151-488) x10(3)uL MPV (7.1-12.4) fL Neut % (Auto) (30.8-76.2) % Lymph % (Auto) (18.4-52.1) % Hughes % (Auto) (4.4-15.7) % Eos % (Auto) (0.6-8.1) % Baso % (Auto) (0.2-1.5) % Neut # (Auto) (1.5-6.3) x10-3/uL Lymph # (Auto) (1.0-4.4) x10-3/uL Hughes # (Auto) (0.3-1.0) x10-3/uL Eos # (Auto) (0.0-0.8) x10-3/uL Baso # (Auto) (0.0-0.1) x10-3/uL PT (9.0-11.1) sec INR (1.00-1.24) D-Dimer, Quantitative (0.0-0.59) mg/LFEU Sodium 146 H (135-145) mmol/L Potassium 4.6 (3.5-5.3) mmol/L Chloride 112 H D (100-110) mmol/L Carbon Dioxide 25 (21-32) mmol/L BUN 58 H (7-18) mg/dL Creatinine 1.8 H (0.55-1.02) mg/dL Est Cr Clr Drug Dosing 20.29 Estimated GFR (MDRD) 28 L (>60) BUN/Creatinine Ratio 32.2 H (9-20) Glucose 190 H (80-116) mg/dL POC Glucose 207 H (74-100) mg/dL Calcium 8.0 L (8.6-10.2) mg/dL Total Bilirubin (0.1-1.3) mg/dL Direct Bilirubin (0.10-0.20) mg/dL AST (5-25) IU/L ALT (12-36) U/L Alkaline Phosphatase (56-112) IU/L C-Reactive Protein (0.5-0.9) mg/dL Total Protein (6.0-8.0) g/dL Albumin (3.2-4.6) g/dL Globulin g/dL Albumin/Globulin Ratio Result Diagrams: 04/30/20 18:02 05/01/20 08:15 Sepsis Event Note - Evaluation Sepsis Screening Result: No Definite Risk - Focused Exam Vital Signs: Vital Signs Temp Pulse Resp BP BP Pulse Ox 05/01/20 09:49 139/74 05/01/20 06:03 98.1 F 72 20 112/52 L 92 L 05/01/20 03:00 98.1 F 72 20 121/59 L 92 L 04/30/20 23:00 98.1 F 84 22 H 152/62 H 92 L *Q Meaningful Use (ADM) - VTE Risk Assess *Q Each Risk Factor Represents 1 Point: Obesity ( BMI > 25 kg/m2), Serious lung disease including pneumonia Total Score 1 Point Risk Factors: 2 Each Risk Factor Represents 2 Points: Age 60 - 74 Years Total Score 2 Point Risk Factors: 2 Each Risk Factor Represents 3 Points: None Total Score 3 Point Risk Factors: 0 Each Risk Factor Represents 5 Points: None Total Score 5 Point Risk Factors: 0 Venous Thromboembolism Risk Factor Score *Q: 4 - Problem List (1) Vomiting SNOMED Code(s): 976248319 ICD Code: R11.10 - VOMITING, UNSPECIFIED Status: Acute Current Visit: No Qualifiers: Vomiting type: unspecified Vomiting Intractability: non-intractable Nausea presence: with nausea Qualified Code(s): R11.2 - Nausea with vomiting, unspecified (2) COVID-19 virus infection SNOMED Code(s): 444749777 ICD Code: U07.1 - COVID-19 Status: Acute Current Visit: No Onset Date: ~04/22/20 (3) Hypoxia SNOMED Code(s): 222783545 ICD Code: R09.02 - HYPOXEMIA Status: Acute Current Visit: Yes (4) Dehydration SNOMED Code(s): 33822282 ICD Code: E86.0 - DEHYDRATION Status: Acute Current Visit: Yes (5) Viral pneumonia SNOMED Code(s): 07436100 ICD Code: J12.9 - VIRAL PNEUMONIA, UNSPECIFIED Status: Acute Current Visit: Yes (6) Elevated d-dimer SNOMED Code(s): 965941069 ICD Code: R79.89 - OTHER SPECIFIED ABNORMAL FINDINGS OF BLOOD CHEMISTRY Status: Acute Current Visit: Yes (7) Chronic kidney disease, stage 4 (severe) SNOMED Code(s): 712497624 ICD Code: N18.4 - CHRONIC KIDNEY DISEASE, STAGE 4 (SEVERE) Status: Chronic Current Visit: Yes (8) Chronic low back pain SNOMED Code(s): 281276689 ICD Code: M54.5 - LOW BACK PAIN; G89.29 - OTHER CHRONIC PAIN Status: Chronic Current Visit: No Problem Details: I will provide analgesic medication tonight, and ask Hospitalist to see in the am. Qualifiers: Back pain laterality: bilateral Sciatica presence: unspecified whether sciatica present Qualified Code(s): M54.5 - Low back pain; G89.29 - Other chronic pain (9) Closed compression fracture of body of first lumbar vertebra SNOMED Code(s): 345048789, 677947057 ICD Code: S32.010A - WEDGE COMPRESSION FRACTURE OF FIRST LUMBAR VERTEBRA, INIT Status: Chronic Current Visit: No Onset Date: ~11/30/18 (10) Constipation SNOMED Code(s): 23036869 ICD Code: K59.00 - CONSTIPATION, UNSPECIFIED Status: Chronic Current Visit: No Problem Details: Chronic, also secondary to narcotics Qualifiers: Constipation type: unspecified constipation type Qualified Code(s): K59.00 - Constipation, unspecified (11) DM2 (diabetes mellitus, type 2) SNOMED Code(s): 42568429 ICD Code: E11.9 - TYPE 2 DIABETES MELLITUS WITHOUT COMPLICATIONS Status: Chronic Current Visit: No Problem Details: Continue current outpatient meds. 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 Diabetic retinopathy severity: with mild nonproliferative retinopathy Diabetes mellitus macular edema: without macular edema (12) Hypertension SNOMED Code(s): 99848497 ICD Code: I10 - ESSENTIAL (PRIMARY) HYPERTENSION Status: Chronic Current Visit: No Qualifiers: Hypertension type: essential hypertension Qualified Code(s): I10 - Essential (primary) hypertension Problem List Initiated/Reviewed/Updated: Yes Orders Last 24hrs: Active Orders 24 hr Category Date Time Status Patient Status [ADT] Routine ADT 04/30/20 18:59 Active Ambulate [RC] PER UNIT ROUTINE Care 04/30/20 18:59 Active Antiembolic Devices [RC] .Routine Care 04/30/20 19:05 Active Blood Glucose Check, Bedside [RC] ,11,16,21 Care 04/30/20 21:00 Active Intake and Output [RC] QSHIFT Care 04/30/20 19:06 Active Oxygen Therapy [RC] CONTINUOUS Care 04/30/20 19:06 Active Pulse Oximetry [RC] CONTINUOUS Care 04/30/20 19:06 Active Up With Assistance [RC] ASDIRECTED Care 04/30/20 18:59 Active VTE/DVT Education [RC] Click to Edit Care 04/30/20 19:05 Active Vital Signs [RC] Q4H Care 04/30/20 18:59 Active Clear Liquid Diet [DIET] Diet 05/01/20 Breakfast Active BASIC METABOLIC PANEL,BMP [CHEM] Routine Lab 05/02/20 06:00 Ordered Acetaminophen [Tylenol Extra Strength] Med 05/01/20 09:00 Active 1,000 mg PO TID Ascorbic Acid [Vitamin C] Med 04/30/20 21:00 Active 500 mg PO BID DULoxetine [Cymbalta] Med 05/01/20 09:00 Active 60 mg PO DAILY Dextrose 50% in Water Med 04/30/20 22:17 Active 50 ml IVPUSH ASDIRECTED PRN Enoxaparin [Lovenox] Med 05/02/20 09:00 Active 50 mg SUBCUT DAILY Ferrous Sulfate Med 05/01/20 09:00 Active 325 mg PO DAILY Glucagon,Human Recombinant [GlucaGen] Med 04/30/20 22:17 Active 1 mg IM ASDIRECTED PRN Insulin Glarg,Human.Rec.Analog [LantUS Solostar] Med 04/30/20 21:00 Active 38 units SUBCUT BEDTIME Lactated Ringers [Ringers, Lactated] 1,000 ml Med 05/01/20 09:15 Active IV ASDIRECTED Latanoprost [Xalatan 0.005% Ophth Soln] Med 05/01/20 21:00 Active 0 ml EYEBOTH BEDTIME Magnesium Hydroxide [Milk of Magnesia] Med 04/30/20 19:07 Active 30 ml PO BID PRN Ondansetron [Zofran ODT] Med 05/01/20 08:50 Active 4 mg PO Q6H PRN Polyvinyl Alcohol [LiquiTears 1.4% Ophth Soln] Med 05/01/20 09:05 Active 0 ml EYEBOTH Q4H PRN Pregabalin [Lyrica] Med 05/01/20 09:00 Active 100 mg PO TID Sodium Chloride 0.9% [Saline Flush] Med 05/01/20 09:58 Active 10 ml FLUSH ASDIRECTED PRN Zinc Sulfate [Zincate] Med 05/01/20 09:00 Active 220 mg PO DAILY atorvaSTATin [Lipitor] Med 05/01/20 09:00 Active 20 mg PO DAILY dexAMETHasone [Decadron] Med 05/01/20 09:00 Active 8 mg IVPUSH DAILY lisinopriL [Prinivil] Med 05/01/20 09:00 Active 20 mg PO DAILY timoloL maleate [Timoptic 0.5% Ophth Soln] Med 05/01/20 09:00 Active 1 ml EYEBOTH DAILY DVT/VTE Prophylaxis Reflex [OM.PC] Per Unit Routine Oth 04/30/20 18:59 Ordered Resuscitation Status Routine Resus Stat 04/30/20 18:59 Ordered Medication Orders Acetaminophen (Tylenol Extra Strength) 1,000 mg PO TID [facility] Last Admin: 05/01/20 09:49 Dose: 1,000 mg Documented by: ZECHARIAH Artificial Tears (Liquitears 1.4% Ophth Soln) 0 ml EYEBOTH Q4H PRN PRN Reason: Dry Eyes Ascorbic Acid (Vitamin C) 500 mg PO BID [facility] Last Admin: 05/01/20 09:50 Dose: 500 mg Documented by: Admin: 04/30/20 20:12 Dose: 500 mg Documented by: MENDOZA Atorvastatin Calcium (Lipitor) 20 mg PO DAILY [facility] Last Admin: 12/08/20 09:48 Dose: 20 mg Documented by: ZECHARIAH Dexamethasone (Decadron) 8 mg IVPUSH DAILY [facility] Last Admin: 05/01/20 09:50 Dose: 8 mg Documented by: ZECHARIAH Dextrose/Water (Dextrose 50% In Water) 50 ml IVPUSH ASDIRECTED PRN PRN Reason: Hypoglycemia Duloxetine HCl (Cymbalta) 60 mg PO DAILY [facility] Last Admin: 05/01/20 09:48 Dose: 60 mg Documented by: ZECHARIAH Enoxaparin Sodium (Lovenox) 50 mg SUBCUT DAILY [facility] Ferrous Sulfate (Ferrous Sulfate) 325 mg PO DAILY [facility] Last Admin: 05/01/20 09:48 Dose: 325 mg Documented by: ZECHARIAH Glucagon (Glucagen) 1 mg IM ASDIRECTED PRN PRN Reason: Hypoglycemia Lactated Ringer's (Ringers, Lactated) 1,000 mls @ 125 mls/hr IV ASDIRECTED [facility] Last Admin: 05/01/20 09:50 Dose: 125 mls/hr Documented by: ZECHARIAH Insulin Glargine (Lantus Solostar) 38 units SUBCUT BEDTIME [facility] Last Admin: 04/30/20 23:00 Dose: 38 units Documented by: MENDOZA Mullinsigned by: SEPIDEH Latanoprost (Xalatan 0.005% Ophth Soln) 0 ml EYEBOTH BEDTIME [facility] Lisinopril (Prinivil) 20 mg PO DAILY [facility] Last Admin: 05/01/20 09:49 Dose: 20 mg Documented by: ZECHARIAH Magnesium Hydroxide (Milk Of Magnesia) 30 ml PO BID PRN PRN Reason: Constipation Ondansetron HCl (Zofran Odt) 4 mg PO Q6H PRN PRN Reason: Nausea/Vomiting Pregabalin (Lyrica) 100 mg PO TID [facility] Last Admin: 05/01/20 09:52 Dose: 100 mg Documented by: ZECHARIAH Sodium Chloride (Saline Flush) 10 ml FLUSH ASDIRECTED PRN PRN Reason: IV Use Timolol Maleate (Timoptic 0.5% Ophth Soln) 1 ml EYEBOTH DAILY [facility] Last Admin: 05/01/20 09:49 Dose: 1 drop Documented by: ZECHARIAH Zinc Sulfate (Zincate) 220 mg PO DAILY [facility] Last Admin: 05/01/20 09:50 Dose: 220 mg Documented by: DIFFCAL Assessment/Plan Comment:: 1. Admit for COVID viral pneumonia, hypoxia requiring oxygen, CKD, Diabetes, Obesity. 2. COVID: Dexamethasone 6 mg IV daily, unable to give Remdesivir due to GFR <30, changed IVF to LR at 125 ml/hr as sodium 146, chloride 112 this morning. Oxygen is at 4L/min with saturations at 92%. 3. Diet: Clears as tolerated. 4. DM: Accuchecks qid&ac, will adjust insulin per sugars and how well she is eating. 5. DVT prophylaxis: 0.5 mg/kg daily adjusted for kidney function, her D-Dimer was elevated at 1.23 but with her kidney function unable to do CTA because requires contrast. 6: CODE STATUS: FULL - Mortality Measure Prognosis:: Poor
[2020-05-01] MEDS: Insulin Glargine,Human Rec. Analog 100 Units/ML 3 ML Pen SUBCUT SCH (20:27)
[2020-05-01] MEDS: Latanoprost 0.005% Ophth Soln 2.5 ML Bottle EYEBOTH SCH (20:35)
[2020-05-01] MEDS ORDERED: [UNRECOGNIZED DRUG - OTHER] SQ SCH (21:00)
[2020-05-01] MEDS ORDERED: INSULIN GLARGINE SQ SCH (21:00)
[2020-05-02] MEDS: Lactated Ringers 1,000 ML IV SCH ×3 (02:00→17:47)
[2020-05-02] MEDS: DULoxetine 60 MG Cap PO SCH (10:02)
[2020-05-02] MEDS: atorvaSTATin 20 MG Tab PO SCH (10:03)
[2020-05-02] MEDS: Ferrous Sulfate 325 MG Tab PO SCH (10:03)
[2020-05-02] MEDS: Ascorbic Acid 500 MG Tab PO SCH ×2 (10:04→20:32)
[2020-05-02] MEDS: Zinc Sulfate 220 MG Cap PO SCH (10:04)
[2020-05-02] MEDS: Lisinopril 20 MG Tab PO SCH (10:05)
[2020-05-02] MEDS: Acetaminophen 500 MG Tab PO SCH ×3 (10:05→20:31)
[2020-05-02] MEDS: Timolol Maleate 0.5% Ophth Soln 5 ML Bottle EYEBOTH SCH (10:05)
[2020-05-02] MEDS: Enoxaparin 60 MG/0.6 ML Syringe SUBCUT SCH (10:07)
--- NOTE | 2020-05-02 10:08 | PCM.PN ---
- General Info Date of Service: 05/02/20 Subjective Update: Elissa is breathing a little better today, oxygen down to 3L. Still no appetite, drinking but doesn't want to eat. States her stomach hurts. Gets up to walk to the bathroom. Would be willing to try incentive spirometry to help with deep breathing. Encouraged to walk in the room and sit up in chair for meals. No fever. - Patient Data Vitals - Most Recent: Last Vital Signs Temp 97.5 F 05/02/20 08:00 Pulse 64 05/02/20 08:00 Resp 18 05/02/20 08:00 BP 132/65 05/02/20 08:00 Pulse Ox 95 05/02/20 08:00 Weight - Most Recent: 209 lb 1 oz I&O - Last 24 Hours: Intake & Output 05/01/20 05/02/20 05/02/20 22:59 06:59 14:59 Intake Total 1903 1161 Output Total 300 150 Balance 1603 1011 Lab Results Last 24 Hours: Laboratory Results - last 24 hr 05/01/20 05/01/20 05/01/20 Range/Units 12:11 17:56 20:01 Sodium (135-145) mmol/L Potassium (3.5-5.3) mmol/L Chloride (100-110) mmol/L Carbon Dioxide (21-32) mmol/L BUN (7-18) mg/dL Creatinine (0.55-1.02) mg/dL Est Cr Clr Drug Dosing mL/min Estimated GFR (MDRD) (>60) BUN/Creatinine Ratio (9-20) Glucose (80-116) mg/dL POC Glucose 187 H 197 H 301 H (74-100) mg/dL Calcium (8.6-10.2) mg/dL 05/02/20 Range/Units 06:30 Sodium 144 (135-145) mmol/L Potassium 4.7 (3.5-5.3) mmol/L Chloride 110 (100-110) mmol/L Carbon Dioxide 25 (21-32) mmol/L BUN 53 H (7-18) mg/dL Creatinine 1.7 H (0.55-1.02) mg/dL Est Cr Clr Drug Dosing 21.49 mL/min Estimated GFR (MDRD) 30 L (>60) BUN/Creatinine Ratio 31.2 H (9-20) Glucose 192 H (80-116) mg/dL POC Glucose (74-100) mg/dL Calcium 8.0 L (8.6-10.2) mg/dL Med Orders - Current: Current Medications Acetaminophen (Tylenol Extra Strength) 1,000 mg PO TID [facility] Last Admin: 05/01/20 20:35 Dose: 1,000 mg Documented by: Artificial Tears (Liquitears 1.4% Ophth Soln) 0 ml EYEBOTH Q4H PRN PRN Reason: Dry Eyes Ascorbic Acid (Vitamin C) 500 mg PO BID [facility] Last Admin: 05/01/20 20:35 Dose: 500 mg Documented by: Atorvastatin Calcium (Lipitor) 20 mg PO DAILY [facility] Last Admin: 05/01/20 09:48 Dose: 20 mg Documented by: Dexamethasone (Decadron) 8 mg IVPUSH DAILY [facility] Last Admin: 05/01/20 09:50 Dose: 8 mg Documented by: Dextrose/Water (Dextrose 50% In Water) 50 ml IVPUSH ASDIRECTED PRN PRN Reason: Hypoglycemia Duloxetine HCl (Cymbalta) 60 mg PO DAILY [facility] Last Admin: 05/01/20 09:48 Dose: 60 mg Documented by: Enoxaparin Sodium (Lovenox) 50 mg SUBCUT DAILY [facility] Ferrous Sulfate (Ferrous Sulfate) 325 mg PO DAILY [facility] Last Admin: 05/01/20 09:48 Dose: 325 mg Documented by: Glucagon (Glucagen) 1 mg IM ASDIRECTED PRN PRN Reason: Hypoglycemia Lactated Ringer's (Ringers, Lactated) 1,000 mls @ 125 mls/hr IV ASDIRECTED [facility] Last Admin: 05/02/20 02:00 Dose: 125 mls/hr Documented by: Insulin Glargine (Lantus Solostar) 38 units SUBCUT BEDTIME [facility] Last Admin: 05/01/20 20:27 Dose: 38 units Documented by: Latanoprost (Xalatan 0.005% Ophth Soln) 0 ml EYEBOTH BEDTIME [facility] Last Admin: 05/01/20 20:35 Dose: 1 drop Documented by: Lisinopril (Prinivil) 20 mg PO DAILY [facility] Last Admin: 05/01/20 09:49 Dose: 20 mg Documented by: Magnesium Hydroxide (Milk Of Magnesia) 30 ml PO BID PRN PRN Reason: Constipation Ondansetron HCl (Zofran Odt) 4 mg PO Q6H PRN PRN Reason: Nausea/Vomiting Pantoprazole Sodium (Protonix Iv) 40 mg IVPUSH Q24H [facility] Pregabalin (Lyrica) 100 mg PO TID [facility] Last Admin: 05/01/20 20:35 Dose: 100 mg Documented by: Sodium Chloride (Saline Flush) 10 ml FLUSH ASDIRECTED PRN PRN Reason: IV Use Timolol Maleate (Timoptic 0.5% Ophth Soln) 1 ml EYEBOTH DAILY [facility] Last Admin: 05/01/20 09:49 Dose: 1 drop Documented by: Zinc Sulfate (Zincate) 220 mg PO DAILY [facility] Last Admin: 05/01/20 09:50 Dose: 220 mg Documented by: Discontinued Medications Acetaminophen (Tylenol) 1,000 mg PO Q6H PRN PRN Reason: analgesia/fever Acetaminophen (Tylenol Extra Strength) 1,000 mg PO Q6H PRN PRN Reason: analgesia/fever Aspirin (Aspirin) 324 mg PO ONETIME ONE Stop: 04/30/20 17:48 Last Admin: 04/30/20 17:56 Dose: 324 mg Documented by: Dexamethasone (Decadron) 8 mg IVPUSH ONETIME ONE Stop: 04/30/20 17:48 Last Admin: 04/30/20 17:57 Dose: 8 mg Documented by: Enoxaparin Sodium (Lovenox) 100 mg SUBCUT ONETIME ONE Stop: 04/30/20 18:41 Last Admin: 04/30/20 18:57 Dose: 100 mg Documented by: Enoxaparin Sodium (Lovenox) 100 mg SUBCUT Q12H [facility] Last Admin: 05/01/20 06:15 Dose: 100 mg Documented by: Sodium Chloride (Normal Saline) 1,000 mls @ 999 mls/hr IV ASDIRECTED [facility] Last Infusion: 04/30/20 18:57 Dose: 500 mls/hr Documented by: Sodium Chloride (Normal Saline) 1,000 mls @ 500 mls/hr IV ASDIRECTED [facility] Last Admin: 04/30/20 22:36 Dose: 500 mls/hr Documented by: Remdesivir 200 mg/ Sodium (Chloride) 250 mls @ 200 mls/hr IV ONETIME ONE Stop: 04/30/20 20:10 Last Admin: 04/30/20 20:26 Dose: 200 mls/hr Documented by: Sodium Chloride (Normal Saline) 1,000 mls @ 125 mls/hr IV ASDIRECTED [facility] Last Admin: 05/01/20 08:20 Dose: 125 mls/hr Documented by: - Exam General: Alert, Oriented, Cooperative, Mild Distress Lungs: Normal Respiratory Effort, Decreased Breath Sounds, Crackles (fine throughout). No: Wheezing Cardiovascular: Regular Rate, Regular Rhythm GI/Abdominal Exam: Normal Bowel Sounds, Soft, Guarding, Tender (epigastric). No: No Distention, Rigid, Rebound (Female) Exam: Deferred Sepsis Event Note - Evaluation Sepsis Screening Result: No Definite Risk - Focused Exam Vital Signs: Vital Signs Temp Temp Pulse Resp BP Pulse Ox Pulse Ox 05/02/20 08:00 97.5 F 64 18 132/65 95 05/02/20 04:15 98.2 F 69 20 131/62 97 05/02/20 00:00 97.6 F 61 22 H 129/58 L 95 95 - Problem List & Annotations (1) COVID-19 virus infection SNOMED Code(s): 493374167 Code(s): U07.1 - COVID-19 Status: Acute Current Visit: No Onset Date: ~04/22/20 Annotation/Comment:: Negative x-ray on 04/[address] showed bilateral ground glass opacities, infiltrates scattered throughout all lobes consistent with covid viral pneumonia. Dexamethasone day 3. (2) Viral pneumonia SNOMED Code(s): 72387563 Code(s): J12.9 - VIRAL PNEUMONIA, UNSPECIFIED Status: Acute Current Visit: Yes (3) Hypoxia SNOMED Code(s): 828997931 Code(s): R09.02 - HYPOXEMIA Status: Acute Current Visit: Yes Annotation/Comment:: improving (4) Dehydration SNOMED Code(s): 18696848 Code(s): E86.0 - DEHYDRATION Status: Acute Current Visit: Yes Annotation/Comment:: Improving, sodium and chloride corrected today. Cr 1.7 today. (5) Elevated d-dimer SNOMED Code(s): 285385366 Code(s): R79.89 - OTHER SPECIFIED ABNORMAL FINDINGS OF BLOOD CHEMISTRY Status: Acute Current Visit: Yes Annotation/Comment:: Lovenox adjusted for renal function: 0.5 mg/kg daily. (6) Chronic kidney disease, stage 4 (severe) SNOMED Code(s): 960690555 Code(s): N18.4 - CHRONIC KIDNEY DISEASE, STAGE 4 (SEVERE) Status: Chronic Current Visit: Yes (7) Chronic low back pain SNOMED Code(s): 325877200 Code(s): M54.5 - LOW BACK PAIN; G89.29 - OTHER CHRONIC PAIN Status: Chronic Current Visit: No Qualifiers: Back pain laterality: bilateral Sciatica presence: unspecified whether sciatica present Qualified Code(s): M54.5 - Low back pain; G89.29 - Other chronic pain (8) Constipation SNOMED Code(s): 46286936 Code(s): K59.00 - CONSTIPATION, UNSPECIFIED Status: Chronic Current Visit: No Qualifiers: Constipation type: unspecified constipation type Qualified Code(s): K59.00 - Constipation, unspecified Annotation/Comment:: Chronic, also secondary to narcotics (9) DM2 (diabetes mellitus, type 2) SNOMED Code(s): 59629406 Code(s): E11.9 - TYPE 2 DIABETES MELLITUS WITHOUT COMPLICATIONS Status: Chronic Current Visit: No Qualifiers: Diabetes mellitus 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 (10) Hypertension SNOMED Code(s): 49925901 Code(s): I10 - ESSENTIAL (PRIMARY) HYPERTENSION Status: Chronic Current Visit: No Qualifiers: Hypertension type: essential hypertension Qualified Code(s): I10 - Essential (primary) hypertension (11) Vomiting SNOMED Code(s): 064463724 Code(s): R11.10 - VOMITING, UNSPECIFIED Status: Resolved Current Visit: No Qualifiers: Vomiting type: unspecified Vomiting Intractability: non-intractable Nausea presence: with nausea Qualified Code(s): R11.2 - Nausea with vomiting, unspecified - Problem List Review Problem List Initiated/Reviewed/Updated: Yes - My Orders Last 24 Hours: My Active Orders 05/01/20 09:05 Polyvinyl Alcohol [LiquiTears 1.4% Ophth Soln] 0 ml EYEBOTH Q4H PRN 05/01/20 09:15 Lactated Ringers [Ringers, Lactated] 1,000 ml IV ASDIRECTED 05/01/20 09:58 Sodium Chloride 0.9% [Saline Flush] 10 ml FLUSH ASDIRECTED PRN 05/01/20 21:00 Latanoprost [Xalatan 0.005% Ophth Soln] 0 ml EYEBOTH BEDTIME 05/02/20 09:00 Enoxaparin [Lovenox] 50 mg SUBCUT DAILY 05/02/20 09:52 Incentive Spirometry [RT Incentive Spirometry] [RC] Q1HWA 05/02/20 10:00 Pantoprazole [ProTONIX IV] 40 mg IVPUSH Q24H - Plan Plan:: 1. COVID: Dexamethasone 6 mg IV daily day 3, LR at 125 ml/hr. Oxygen is at 3L/min with saturations at 95%. 2. Diet: Clears as tolerated. will add pantoprazole 40 mg IV daily. 3. DM: Accuchecks qid&ac, will adjust insulin per sugars and how well she is eating. 4. DVT prophylaxis: 0.5 mg/kg daily adjusted for kidney function.
[2020-05-02] MEDS: Dexamethasone 4 MG/ML SDV IVPUSH SCH ×2 (10:29→10:54)
[2020-05-02] MEDS: Pregabalin 100 MG Cap PO SCH ×3 (10:29→20:31)
[2020-05-02] MEDS: Pantoprazole 40 MG Vial IVPUSH SCH (10:29)
[2020-05-02] MEDS: Latanoprost 0.005% Ophth Soln 2.5 ML Bottle EYEBOTH SCH (20:31)
[2020-05-02] MEDS: Insulin Glargine,Human Rec. Analog 100 Units/ML 3 ML Pen SUBCUT SCH (21:09)
[2020-05-03] MEDS: Lactated Ringers 1,000 ML IV SCH ×3 (01:44→23:06)
[2020-05-03] MEDS: Enoxaparin 60 MG/0.6 ML Syringe SUBCUT SCH (08:14)
[2020-05-03] MEDS: atorvaSTATin 20 MG Tab PO SCH (08:15)
[2020-05-03] MEDS: DULoxetine 60 MG Cap PO SCH (08:15)
[2020-05-03] MEDS: Ferrous Sulfate 325 MG Tab PO SCH (08:15)
[2020-05-03] MEDS: Timolol Maleate 0.5% Ophth Soln 5 ML Bottle EYEBOTH SCH (08:16)
[2020-05-03] MEDS: Zinc Sulfate 220 MG Cap PO SCH (08:16)
[2020-05-03] MEDS: Ascorbic Acid 500 MG Tab PO SCH ×2 (08:16→20:24)
[2020-05-03] MEDS: Acetaminophen 500 MG Tab PO SCH ×3 (08:16→20:24)
[2020-05-03] MEDS: Pregabalin 100 MG Cap PO SCH ×3 (08:19→20:47)
[2020-05-03] MEDS: Lisinopril 20 MG Tab PO SCH (08:22)
--- NOTE | 2020-05-03 09:34 | PCM.PN ---
- General Info Date of Service: 05/03/20 Subjective Update: Elissa states she is still short of breath but better, ate breakfast and a little nauseous now, but doesn't feel like she is going to vomit. No abdominal pain. She has been weaned down on oxygen to 2L, 95%. Has been walking herself to bathroom and up in chair this morning. Using incentive spirometry while she is awake. Hands feel a little puffy. Functional Status: Reports: Tolerating Diet, Ambulating, Urinating, Incentive Spirometry - Patient Data Vitals - Most Recent: Last Vital Signs Temp 97.7 F 05/03/20 08:00 Pulse 84 05/03/20 08:00 Resp 20 05/03/20 08:00 BP 116/73 05/03/20 08:22 Pulse Ox 95 05/03/20 08:00 Weight - Most Recent: 218 lb 6 oz I&O - Last 24 Hours: Intake & Output 05/02/20 05/03/20 05/03/20 22:59 06:59 14:59 Intake Total 1363 983 100 Balance 1363 983 100 Lab Results Last 24 Hours: Laboratory Results - last 24 hr 05/02/20 05/02/20 05/02/20 Range/Units 11:40 17:46 20:38 POC Glucose 248 H 275 H 336 H (74-100) mg/dL 05/03/20 Range/Units 05:57 POC Glucose 209 H (74-100) mg/dL Med Orders - Current: Current Medications Acetaminophen (Tylenol Extra Strength) 1,000 mg PO TID [facility] Last Admin: 05/03/20 08:16 Dose: 1,000 mg Documented by: Artificial Tears (Liquitears 1.4% Ophth Soln) 0 ml EYEBOTH Q4H PRN PRN Reason: Dry Eyes Ascorbic Acid (Vitamin C) 500 mg PO BID [facility] Last Admin: 05/03/20 08:16 Dose: 500 mg Documented by: Atorvastatin Calcium (Lipitor) 20 mg PO DAILY [facility] Last Admin: 05/03/20 08:15 Dose: 20 mg Documented by: Dexamethasone (Decadron) 6 mg IVPUSH DAILY [facility] Last Admin: 05/02/20 10:29 Dose: 6 mg Documented by: Dextrose/Water (Dextrose 50% In Water) 50 ml IVPUSH ASDIRECTED PRN PRN Reason: Hypoglycemia Duloxetine HCl (Cymbalta) 60 mg PO DAILY [facility] Last Admin: 05/03/20 08:15 Dose: 60 mg Documented by: Enoxaparin Sodium (Lovenox) 50 mg SUBCUT DAILY [facility] Last Admin: 05/03/20 08:14 Dose: 50 mg Documented by: Ferrous Sulfate (Ferrous Sulfate) 325 mg PO DAILY [facility] Last Admin: 05/03/20 08:15 Dose: 325 mg Documented by: Glucagon (Glucagen) 1 mg IM ASDIRECTED PRN PRN Reason: Hypoglycemia Lactated Ringer's (Ringers, Lactated) 1,000 mls @ 75 mls/hr IV ASDIRECTED [facility] Last Admin: 05/03/20 01:44 Dose: 125 mls/hr Documented by: Insulin Glargine (Lantus Solostar) 38 units SUBCUT BEDTIME [facility] Last Admin: 05/02/20 21:09 Dose: 38 units Documented by: Insulin Human Lispro (Humalog) 0 unit SUBCUT TIDMEALS [facility]; Protocol Latanoprost (Xalatan 0.005% Ophth Soln) 0 ml EYEBOTH BEDTIME [facility] Last Admin: 05/02/20 20:31 Dose: 1 drop Documented by: Lisinopril (Prinivil) 20 mg PO DAILY [facility] Last Admin: 05/03/20 08:22 Dose: 20 mg Documented by: Magnesium Hydroxide (Milk Of Magnesia) 30 ml PO BID PRN PRN Reason: Constipation Ondansetron HCl (Zofran Odt) 4 mg PO Q6H PRN PRN Reason: Nausea/Vomiting Pantoprazole Sodium (Protonix Iv) 40 mg IVPUSH Q24H [facility] Last Admin: 05/02/20 10:29 Dose: 40 mg Documented by: Pregabalin (Lyrica) 100 mg PO TID [facility] Last Admin: 05/03/20 08:19 Dose: 100 mg Documented by: Sodium Chloride (Saline Flush) 10 ml FLUSH ASDIRECTED PRN PRN Reason: IV Use Timolol Maleate (Timoptic 0.5% Ophth Soln) 1 ml EYEBOTH DAILY [facility] Last Admin: 05/03/20 08:16 Dose: 1 drop Documented by: Zinc Sulfate (Zincate) 220 mg PO DAILY [facility] Last Admin: 05/03/20 08:16 Dose: 220 mg Documented by: Discontinued Medications Acetaminophen (Tylenol) 1,000 mg PO Q6H PRN PRN Reason: analgesia/fever Acetaminophen (Tylenol Extra Strength) 1,000 mg PO Q6H PRN PRN Reason: analgesia/fever Aspirin (Aspirin) 324 mg PO ONETIME ONE Stop: 04/30/20 17:48 Last Admin: 04/30/20 17:56 Dose: 324 mg Documented by: Dexamethasone (Decadron) 8 mg IVPUSH ONETIME ONE Stop: 04/30/20 17:48 Last Admin: 04/30/20 17:57 Dose: 8 mg Documented by: Dexamethasone (Decadron) 8 mg IVPUSH DAILY [facility] Last Admin: 05/02/20 10:54 Dose: Not Given Documented by: Enoxaparin Sodium (Lovenox) 100 mg SUBCUT ONETIME ONE Stop: 04/30/20 18:41 Last Admin: 04/30/20 18:57 Dose: 100 mg Documented by: Enoxaparin Sodium (Lovenox) 100 mg SUBCUT Q12H [facility] Last Admin: 05/01/20 06:15 Dose: 100 mg Documented by: Sodium Chloride (Normal Saline) 1,000 mls @ 999 mls/hr IV ASDIRECTED [facility] Last Infusion: 04/30/20 18:57 Dose: 500 mls/hr Documented by: Sodium Chloride (Normal Saline) 1,000 mls @ 500 mls/hr IV ASDIRECTED [facility] Last Admin: 04/30/20 22:36 Dose: 500 mls/hr Documented by: Remdesivir 200 mg/ Sodium (Chloride) 250 mls @ 200 mls/hr IV ONETIME ONE Stop: 04/30/20 20:10 Last Admin: 04/30/20 20:26 Dose: 200 mls/hr Documented by: Sodium Chloride (Normal Saline) 1,000 mls @ 125 mls/hr IV ASDIRECTED [facility] Last Admin: 05/01/20 08:20 Dose: 125 mls/hr Documented by: - Exam General: Alert, Oriented, Cooperative, No Acute Distress Lungs: Clear to Auscultation (BUL), Normal Respiratory Effort, Decreased Breath Sounds (Bibasilar), Crackles (fine in right base). No: Wheezing Cardiovascular: Regular Rate, Regular Rhythm GI/Abdominal Exam: Normal Bowel Sounds, Soft, No Distention, Guarding, Tender (LLQ). No: Rigid, Rebound Extremities: Pedal Edema (trace BLE) Sepsis Event Note - Evaluation Sepsis Screening Result: No Definite Risk - Focused Exam Vital Signs: Vital Signs Temp Pulse Resp BP BP Pulse Ox 05/03/20 08:22 116/73 05/03/20 08:00 97.7 F 84 20 116/73 95 05/03/20 04:00 97.4 F 72 18 152/62 H 95 05/03/20 00:00 97.4 F 74 18 145/64 H 95 05/02/20 22:54 97 - Problem List & Annotations (1) COVID-19 virus infection SNOMED Code(s): 139778953 Code(s): U07.1 - COVID-19 Status: Acute Current Visit: No Onset Date: ~04/22/20 Annotation/Comment:: Negative x-ray on 04/[address] showed bilateral ground glass opacities, infiltrates scattered throughout all lobes consistent with covid viral pneumonia. Dexamethasone day 4. Weaned down her oxygen to 2L. (2) Viral pneumonia SNOMED Code(s): 78780720 Code(s): J12.9 - VIRAL PNEUMONIA, UNSPECIFIED Status: Acute Current Visit: Yes (3) Nausea alone SNOMED Code(s): 551854656 Code(s): R11.0 - NAUSEA Status: Acute Current Visit: Yes Annotation/Comment:: Diet has been advanced to consistent carb diet. Zofran as needed. Continue to monitor and adjust as needed. (4) Hypoxia SNOMED Code(s): 444857423 Code(s): R09.02 - HYPOXEMIA Status: Acute Current Visit: Yes Annotation/Comment:: improving (5) Dehydration SNOMED Code(s): 36612138 Code(s): E86.0 - DEHYDRATION Status: Acute Current Visit: Yes Annotation/Comment:: Labs ordered for tomorrow. (6) Elevated d-dimer SNOMED Code(s): 182537974 Code(s): R79.89 - OTHER SPECIFIED ABNORMAL FINDINGS OF BLOOD CHEMISTRY Status: Acute Current Visit: Yes Annotation/Comment:: Lovenox adjusted for renal function: 0.5 mg/kg daily. (7) Chronic kidney disease, stage 4 (severe) SNOMED Code(s): 414037086 Code(s): N18.4 - CHRONIC KIDNEY DISEASE, STAGE 4 (SEVERE) Status: Chronic Current Visit: Yes (8) Chronic low back pain SNOMED Code(s): 030059798 Code(s): M54.5 - LOW BACK PAIN; G89.29 - OTHER CHRONIC PAIN Status: Chronic Current Visit: No Qualifiers: Back pain laterality: bilateral Sciatica presence: unspecified whether sciatica present Qualified Code(s): M54.5 - Low back pain; G89.29 - Other chronic pain (9) Constipation SNOMED Code(s): 81146057 Code(s): K59.00 - CONSTIPATION, UNSPECIFIED Status: Chronic Current Visit: No Qualifiers: Constipation type: unspecified constipation type Qualified Code(s): K59.00 - Constipation, unspecified Annotation/Comment:: Chronic, also secondary to narcotics (10) DM2 (diabetes mellitus, type 2) SNOMED Code(s): 40885269 Code(s): E11.9 - TYPE 2 DIABETES MELLITUS WITHOUT COMPLICATIONS Status: Chronic Current Visit: No Qualifiers: Diabetes mellitus 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 (11) Hypertension SNOMED Code(s): 43587117 Code(s): I10 - ESSENTIAL (PRIMARY) HYPERTENSION Status: Chronic Current Visit: No Qualifiers: Hypertension type: essential hypertension Qualified Code(s): I10 - Es sential (primary) hypertension (12) Vomiting SNOMED Code(s): 284326362 Code(s): R11.10 - VOMITING, UNSPECIFIED Status: Resolved Current Visit: No Qualifiers: Vomiting type: unspecified Vomiting Intractability: non-intractable Nausea presence: with nausea Qualified Code(s): R11.2 - Nausea with vomiting, unspecified - Problem List Review Problem List Initiated/Reviewed/Updated: Yes - My Orders Last 24 Hours: My Active Orders 05/02/20 09:00 Enoxaparin [Lovenox] 50 mg SUBCUT DAILY 05/02/20 09:52 Incentive Spirometry [RT Incentive Spirometry] [RC] Q1HWA 05/02/20 10:00 Pantoprazole [ProTONIX IV] 40 mg IVPUSH Q24H 05/02/20 10:30 dexAMETHasone [Decadron] 6 mg IVPUSH DAILY 05/03/20 Breakfast Consistent Carbohydrate Diet [DIET] 05/03/20 12:00 Insulin Lispro [HumaLOG] See Protocol SUBCUT TIDMEALS 05/04/20 06:00 BASIC METABOLIC PANEL,BMP [CHEM] Routine - Plan Plan:: 1. COVID: Dexamethasone 6 mg IV daily day 4, decreased LR at 75 ml/hr. Oxygen is at 2L/min with saturations at 95%. 2. Diet: Consistent carb diet. will add pantoprazole 40 mg IV daily. 3. DM: Accuchecks qid&ac, will adjust insulin per sugars and how well she is eating. 4. DVT prophylaxis: 0.5 mg/kg daily adjusted for kidney function.
[2020-05-03] MEDS: Dexamethasone 4 MG/ML SDV IVPUSH SCH (10:17)
[2020-05-03] MEDS: Pantoprazole 40 MG Vial IVPUSH SCH (10:19)
[2020-05-03] MEDS ORDERED: Insulin Lispro 100 Unit/ML 3 ML KwikPen SUBCUT ONE (12:12)
[2020-05-03] MEDS: Insulin Lispro 100 Unit/ML 3 ML KwikPen SUBCUT SCH ×2 (12:21→17:47)
[2020-05-03] MEDS: Latanoprost 0.005% Ophth Soln 2.5 ML Bottle EYEBOTH SCH (20:24)
[2020-05-03] MEDS: Insulin Glargine,Human Rec. Analog 100 Units/ML 3 ML Pen SUBCUT SCH (20:42)
[2020-05-04] MEDS: Insulin Lispro 100 Unit/ML 3 ML KwikPen SUBCUT SCH ×3 (09:12→17:49)
[2020-05-04] MEDS: DULoxetine 60 MG Cap PO SCH (09:14)
[2020-05-04] MEDS: Ascorbic Acid 500 MG Tab PO SCH ×2 (09:15→21:09)
[2020-05-04] MEDS: Lisinopril 20 MG Tab PO SCH (09:16)
[2020-05-04] MEDS: Acetaminophen 500 MG Tab PO SCH ×3 (09:16→21:08)
[2020-05-04] MEDS: Ferrous Sulfate 325 MG Tab PO SCH (09:17)
[2020-05-04] MEDS: atorvaSTATin 20 MG Tab PO SCH (09:17)
[2020-05-04] MEDS: Enoxaparin 60 MG/0.6 ML Syringe SUBCUT SCH (09:18)
[2020-05-04] MEDS: Zinc Sulfate 220 MG Cap PO SCH (09:23)
[2020-05-04] MEDS: Timolol Maleate 0.5% Ophth Soln 5 ML Bottle EYEBOTH SCH (09:27)
[2020-05-04] MEDS ORDERED: Ibuprofen 200 MG Tab PO PRN (09:34)
[2020-05-04] MEDS: Dexamethasone 4 MG/ML SDV IVPUSH SCH (09:36)
[2020-05-04] MEDS: Sodium Chloride 0.9% 10 ML Syringe FLUSH PRN ×4 (09:38→14:04)
[2020-05-04] MEDS: Pantoprazole 40 MG Vial IVPUSH SCH (09:40)
[2020-05-04] MEDS: Pregabalin 100 MG Cap PO SCH ×3 (10:04→21:08)
--- NOTE | 2020-05-04 10:15 | PCM.PN ---
- General Info Date of Service: 05/04/20 Subjective Update: Complaining of left hip pain today, has not had bowel movement since admission, is eating 25-50% of her food, drinking when encouraged but weight is up. Breathing is improved, desaturated when she sat down yesterday but came up on her own. Will walk again today to see if she needs home oxygen. Had oxygen on this morning. - Patient Data Vitals - Most Recent: Last Vital Signs Temp 97.8 F 05/04/20 08:00 Pulse 77 05/04/20 08:00 Resp 20 05/04/20 08:00 BP 156/81 H 05/04/20 09:16 Pulse Ox 93 L 05/04/20 08:00 Weight - Most Recent: 218 lb 6 oz I&O - Last 24 Hours: Intake & Output 05/03/20 05/04/20 05/04/20 22:59 06:59 14:59 Intake Total 612 607 Balance 612 607 Lab Results Last 24 Hours: Laboratory Results - last 24 hr 05/03/20 05/03/20 05/04/20 Range/Units 11:25 17:34 06:30 Sodium 141 (135-145) mmol/L Potassium 4.5 (3.5-5.3) mmol/L Chloride 105 D (100-110) mmol/L Carbon Dioxide 29 (21-32) mmol/L BUN 33 H D (7-18) mg/dL Creatinine 1.4 H (0.55-1.02) mg/dL Est Cr Clr Drug Dosing 26.09 mL/min Estimated GFR (MDRD) 37 L (>60) BUN/Creatinine Ratio 23.6 H (9-20) Glucose 213 H (80-116) mg/dL POC Glucose 308 H 254 H (74-100) mg/dL Calcium 8.1 L (8.6-10.2) mg/dL Med Orders - Current: Current Medications Acetaminophen (Tylenol Extra Strength) 1,000 mg PO TID [facility] Last Admin: 05/04/20 09:16 Dose: 1,000 mg Documented by: Artificial Tears (Liquitears 1.4% Ophth Soln) 0 ml EYEBOTH Q4H PRN PRN Reason: Dry Eyes Ascorbic Acid (Vitamin C) 500 mg PO BID [facility] Last Admin: 05/04/20 09:15 Dose: 500 mg Documented by: Atorvastatin Calcium (Lipitor) 20 mg PO DAILY [facility] Last Admin: 05/04/20 09:17 Dose: 20 mg Documented by: Dexamethasone (Decadron) 6 mg IVPUSH DAILY [facility] Last Admin: 05/04/20 09:36 Dose: 6 mg Documented by: Dextrose/Water (Dextrose 50% In Water) 50 ml IVPUSH ASDIRECTED PRN PRN Reason: Hypoglycemia Duloxetine HCl (Cymbalta) 60 mg PO DAILY [facility] Last Admin: 05/04/20 09:14 Dose: 60 mg Documented by: Enoxaparin Sodium (Lovenox) 50 mg SUBCUT DAILY [facility] Last Admin: 05/04/20 09:18 Dose: 50 mg Documented by: Ferrous Sulfate (Ferrous Sulfate) 325 mg PO DAILY [facility] Last Admin: 05/04/20 09:17 Dose: 325 mg Documented by: Glucagon (Glucagen) 1 mg IM ASDIRECTED PRN PRN Reason: Hypoglycemia Ibuprofen (Motrin) 200 mg PO Q6H PRN PRN Reason: Pain Last Admin: 05/04/20 10:02 Dose: 200 mg Documented by: Insulin Glargine (Lantus Solostar) 38 units SUBCUT BEDTIME [facility] Last Admin: 05/03/20 20:42 Dose: 38 units Documented by: Insulin Human Lispro (Humalog) 0 unit SUBCUT TIDMEALS [facility]; Protocol Last Admin: 05/04/20 09:12 Dose: 4 units Documented by: Latanoprost (Xalatan 0.005% Ophth Soln) 0 ml EYEBOTH BEDTIME [facility] Last Admin: 05/03/20 20:24 Dose: 1 drop Documented by: Lisinopril (Prinivil) 20 mg PO DAILY [facility] Last Admin: 05/04/20 09:16 Dose: 20 mg Documented by: Magnesium Hydroxide (Milk Of Magnesia) 30 ml PO BID PRN PRN Reason: Constipation Ondansetron HCl (Zofran Odt) 4 mg PO Q6H PRN PRN Reason: Nausea/Vomiting Pantoprazole Sodium (Protonix Iv) 40 mg IVPUSH Q24H [facility] Last Admin: 05/04/20 09:40 Dose: 40 mg Documented by: Pregabalin (Lyrica) 100 mg PO TID [facility] Last Admin: 05/04/20 10:04 Dose: 100 mg Documented by: Senna/Docusate Sodium (Senna Plus) 1 tab PO BID PRN PRN Reason: Constipation Sodium Chloride (Saline Flush) 10 ml FLUSH ASDIRECTED PRN PRN Reason: IV Use Last Admin: 05/04/20 09:43 Dose: 10 ml Documented by: Timolol Maleate (Timoptic 0.5% Ophth Soln) 1 ml EYEBOTH DAILY [facility] Last Admin: 05/04/20 09:27 Dose: 1 drop Documented by: Zinc Sulfate (Zincate) 220 mg PO DAILY [facility] Last Admin: 05/04/20 09:23 Dose: 220 mg Documented by: Discontinued Medications Acetaminophen (Tylenol) 1,000 mg PO Q6H PRN PRN Reason: analgesia/fever Acetaminophen (Tylenol Extra Strength) 1,000 mg PO Q6H PRN PRN Reason: analgesia/fever Aspirin (Aspirin) 324 mg PO ONETIME ONE Stop: 04/30/20 17:48 Last Admin: 04/30/20 17:56 Dose: 324 mg Documented by: Dexamethasone (Decadron) 8 mg IVPUSH ONETIME ONE Stop: 04/30/20 17:48 Last Admin: 04/30/20 17:57 Dose: 8 mg Documented by: Dexamethasone (Decadron) 8 mg IVPUSH DAILY [facility] Last Admin: 05/02/20 10:54 Dose: Not Given Documented by: Enoxaparin Sodium (Lovenox) 100 mg SUBCUT ONETIME ONE Stop: 04/30/20 18:41 Last Admin: 04/30/20 18:57 Dose: 100 mg Documented by: Enoxaparin Sodium (Lovenox) 100 mg SUBCUT Q12H [facility] Last Admin: 05/01/20 06:15 Dose: 100 mg Documented by: Sodium Chloride (Normal Saline) 1,000 mls @ 999 mls/hr IV ASDIRECTED [facility] Last Infusion: 04/30/20 18:57 Dose: 500 mls/hr Documented by: Sodium Chloride (Normal Saline) 1,000 mls @ 500 mls/hr IV ASDIRECTED [facility] Last Admin: 04/30/20 22:36 Dose: 500 mls/hr Documented by: Remdesivir 200 mg/ Sodium (Chloride) 250 mls @ 200 mls/hr IV ONETIME ONE Stop: 04/30/20 20:10 Last Admin: 04/30/20 20:26 Dose: 200 mls/hr Documented by: Sodium Chloride (Normal Saline) 1,000 mls @ 125 mls/hr IV ASDIRECTED [facility] Last Admin: 05/01/20 08:20 Dose: 125 mls/hr Documented by: Lactated Ringer's (Ringers, Lactated) 1,000 mls @ 75 mls/hr IV ASDIRECTED [facility] Last Admin: 05/03/20 23:06 Dose: 125 mls/hr Documented by: - Exam General: Alert, Oriented, Cooperative, Mild Distress (pain in her hip) Lungs: Normal Respiratory Effort, Crackles (fine crackles throughout). No: Wh eezing Cardiovascular: Regular Rate, Regular Rhythm GI/Abdominal Exam: Soft, Non-Tender, No Distention, Abnormal Bowel Sounds (hypoactive) Sepsis Event Note - Evaluation Sepsis Screening Result: No Definite Risk - Focused Exam Vital Signs: Vital Signs Temp Pulse Resp BP BP Pulse Ox 05/04/20 09:16 156/81 H 05/04/20 08:00 97.8 F 77 20 156/81 H 93 L 05/04/20 04:00 88 20 95 05/04/20 00:00 79 20 98 - Problem List & Annotations (1) COVID-19 virus infection SNOMED Code(s): 461194075 Code(s): U07.1 - COVID-19 Status: Acute Current Visit: No Onset Date: ~04/22/20 Annotation/Comment:: Negative x-ray on 04/[address] showed bilateral ground glass opacities, infiltrates scattered throughout all lobes consistent with covid viral pneumonia. Dexamethasone day 5. Weaned down her oxygen to 1L, 93%. (2) Viral pneumonia SNOMED Code(s): 08804648 Code(s): J12.9 - VIRAL PNEUMONIA, UNSPECIFIED Status: Acute Current Visit: Yes (3) Nausea alone SNOMED Code(s): 986304445 Code(s): R11.0 - NAUSEA Status: Acute Current Visit: Yes Annotation/Comment:: Diet has been advanced to consistent carb diet. Zofran as needed. Continue to monitor and adjust as needed. (4) Hypoxia SNOMED Code(s): 424384254 Code(s): R09.02 - HYPOXEMIA Status: Acute Current Visit: Yes Annotation/Comment:: improving (5) Elevated d-dimer SNOMED Code(s): 304371307 Code(s): R79.89 - OTHER SPECIFIED ABNORMAL FINDINGS OF BLOOD CHEMISTRY Status: Acute Current Visit: Yes Annotation/Comment:: Lovenox adjusted for renal function: 0.5 mg/kg daily. (6) Chronic kidney disease, stage 4 (severe) SNOMED Code(s): 409742015 Code(s): N18.4 - CHRONIC KIDNEY DISEASE, STAGE 4 (SEVERE) Status: Chronic Current Visit: Yes Annotation/Comment:: improved to 1.4 with IV fluids. Encourage water intake. (7) Chronic low back pain SNOMED Code(s): 232178121 Code(s): M54.5 - LOW BACK PAIN; G89.29 - OTHER CHRONIC PAIN Status: Chronic Current Visit: No Qualifiers: Back pain laterality: bilateral Sciatica presence: unspecified whether sciatica present Qualified Code(s): M54.5 - Low back pain; G89.29 - Other chronic pain Annotation/Comment:: Add ibuprofen 200 mg q6h prn in addition to her home pain regiment. (8) Constipation SNOMED Code(s): 89992999 Code(s): K59.00 - CONSTIPATION, UNSPECIFIED Status: Chronic Current Visit: No Qualifiers: Constipation type: unspecified constipation type Qualified Code(s): K59.00 - Constipation, unspecified Annotation/Comment:: Chronic, she is not on any narcotics at this time. Senna S & miralax as needed. 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 (10) Hypertension SNOMED Code(s): 09535838 Code(s): I10 - ESSENTIAL (PRIMARY) HYPERTENSION Status: Chronic Current Visit: No Qualifiers: Hypertension type: essential hypertension Qualified Code(s): I10 - Essential (primary) hypertension (11) Vomiting SNOMED Code(s): 533157955 Code(s): R11.10 - VOMITING, UNSPECIFIED Status: Resolved Current Visit: No Qualifiers: Vomiting type: unspecified Vomiting Intractability: non-intractable Nausea presence: with nausea Qualified Code(s): R11.2 - Nausea with vomiting, unspecified (12) Dehydration SNOMED Code(s): 42198378 Code(s): E86.0 - DEHYDRATION Status: Resolved Current Visit: Yes Annotation/Comment:: resolved. saline lock - Problem List Review Problem List Initiated/Reviewed/Updated: Yes - My Orders Last 24 Hours: My Active Orders 05/03/20 12:00 Insulin Lispro [HumaLOG] See Protocol SUBCUT TIDMEALS 05/04/20 09:33 Convert IV to Peripheral Lock [Convert IV to Saline Lock] [OM.PC] Routine 05/04/20 09:34 Ibuprofen [Motrin] 200 mg PO Q6H PRN 05/04/20 09:35 Docusate Sodium/Sennosides [Senna Plus] 1 tab PO BID PRN - Plan Plan:: 1. COVID: Dexamethasone 6 mg IV daily day 5, saline lock. Oxygen is at 1L/min with saturations at 93%. 2. Diet: Consistent carb diet. will add pantoprazole 40 mg IV daily. 3. DM: Accuchecks qid&ac, will need to go home with sliding scale insulin until hyperglycemia secondary to steroids improve. 4. DVT prophylaxis: Lovenox 0.5 mg/kg daily adjusted for kidney function. 5. Discharge possibly tomorrow.
[2020-05-04] MEDS: Latanoprost 0.005% Ophth Soln 2.5 ML Bottle EYEBOTH SCH (21:09)
[2020-05-04] MEDS: Insulin Glargine,Human Rec. Analog 100 Units/ML 3 ML Pen SUBCUT SCH (21:09)
[2020-05-05] MEDS: Insulin Lispro 100 Unit/ML 3 ML KwikPen SUBCUT SCH ×3 (08:04→17:45)
[2020-05-05] MEDS: Timolol Maleate 0.5% Ophth Soln 5 ML Bottle EYEBOTH SCH (09:00)
[2020-05-05] MEDS: Dexamethasone 4 MG/ML SDV IVPUSH SCH (09:00)
[2020-05-05] MEDS: Pregabalin 100 MG Cap PO SCH ×3 (09:15→20:46)
[2020-05-05] MEDS: Pantoprazole 40 MG Vial IVPUSH SCH (10:00)
[2020-05-05] MEDS: DULoxetine 60 MG Cap PO SCH (10:51)
[2020-05-05] MEDS: Enoxaparin 60 MG/0.6 ML Syringe SUBCUT SCH (10:52)
[2020-05-05] MEDS: Ferrous Sulfate 325 MG Tab PO SCH (10:52)
[2020-05-05] MEDS: Zinc Sulfate 220 MG Cap PO SCH (10:52)
[2020-05-05] MEDS: atorvaSTATin 20 MG Tab PO SCH (10:52)
[2020-05-05] MEDS: Lisinopril 20 MG Tab PO SCH (10:53)
[2020-05-05] MEDS: Acetaminophen 500 MG Tab PO SCH ×3 (10:54→20:46)
[2020-05-05] MEDS: Ascorbic Acid 500 MG Tab PO SCH ×2 (10:54→20:47)
[2020-05-05] MEDS: Budesonide 0.5 MG/2 ML Neb Susp NEB SCH ×2 (11:26→20:46)
--- NOTE | 2020-05-05 15:49 | PCM.PN ---
- General Info Date of Service: 05/05/20 Subjective Update: Elissa was more tired this morning, let her sleep in. She had episode when nurses got her up to the bathroom this morning that she went weak all of sudden, required 3 persons to get her up and back to bed. She also desaturated down to 87% with walking this afternoon, recovered with 2 L of oxygen back up to 93%. She was due to go home today, had sent prescriptions into pharmacy and orders for Home oxygen in but did not hear back from [facility] or [facility]. Daughter Elissa came in to assess if she felt comfortable taking her home. Patient did not want to go home today. Elissa had picked up medications but pharmacy did not have oxygen saturation monitor, she stated her pursed lipped breathing was normal for her when she sleeps. She usually sleeps on her right or left side to help with her chronic back pain. She had been doing well with heating packs and PT/OT prior to getting Covid, she was walking well and her back pain was controlled. - Patient Data Vitals - Most Recent: Last Vital Signs Temp 97.5 F 05/05/20 07:54 Pulse 94 05/05/20 07:54 Resp 22 H 05/05/20 07:54 BP 141/64 H 05/05/20 10:53 Pulse Ox 98 05/05/20 07:54 Weight - Most Recent: 218 lb 6 oz Lab Results Last 24 Hours: Laboratory Results - last 24 hr 05/04/20 05/04/20 05/05/20 Range/Units 17:43 20:42 06:20 POC Glucose 217 H 251 H 126 H (74-100) mg/dL 05/05/20 Range/Units 10:48 POC Glucose 168 H (74-100) mg/dL Med Orders - Current: Current Medications Acetaminophen (Tylenol Extra Strength) 1,000 mg PO TID [facility] Last Admin: 05/05/20 13:40 Dose: 1,000 mg Documented by: Artificial Tears (Liquitears 1.4% Ophth Soln) 0 ml EYEBOTH Q4H PRN PRN Reason: Dry Eyes Ascorbic Acid (Vitamin C) 500 mg PO BID [facility] Last Admin: 05/05/20 10:54 Dose: 500 mg Documented by: Atorvastatin Calcium (Lipitor) 20 mg PO DAILY [facility] Last Admin: 05/05/20 10:52 Dose: 20 mg Documented by: Budesonide (Pulmicort) 0.5 mg NEB BIDRT [facility] Last Admin: 05/05/20 11:26 Dose: 0.5 mg Documented by: Dexamethasone (Decadron) 6 mg IVPUSH DAILY [facility] Last Admin: 05/05/20 09:00 Dose: 6 mg Documented by: Dextrose/Water (Dextrose 50% In Water) 50 ml IVPUSH ASDIRECTED PRN PRN Reason: Hypoglycemia Duloxetine HCl (Cymbalta) 60 mg PO DAILY [facility] Last Admin: 05/05/20 10:51 Dose: 60 mg Documented by: Enoxaparin Sodium (Lovenox) 50 mg SUBCUT DAILY [facility] Last Admin: 05/05/20 10:52 Dose: 50 mg Documented by: Ferrous Sulfate (Ferrous Sulfate) 325 mg PO DAILY [facility] Last Admin: 05/05/20 10:52 Dose: 325 mg Documented by: Glucagon (Glucagen) 1 mg IM ASDIRECTED PRN PRN Reason: Hypoglycemia Ibuprofen (Motrin) 200 mg PO Q6H PRN PRN Reason: Pain Last Admin: 05/04/20 10:02 Dose: 200 mg Documented by: Insulin Glargine (Lantus Solostar) 38 units SUBCUT BEDTIME [facility] Last Admin: 05/04/20 21:09 Dose: 38 units Documented by: Insulin Human Lispro (Humalog) 0 unit SUBCUT TIDMEALS [facility]; Protocol Last Admin: 05/05/20 11:26 Dose: 2 units Documented by: Latanoprost (Xalatan 0.005% Ophth Soln) 0 ml EYEBOTH BEDTIME [facility] Last Admin: 05/04/20 21:09 Dose: 1 drop Documented by: Lisinopril (Prinivil) 20 mg PO DAILY [facility] Last Admin: 05/05/20 10:53 Dose: 20 mg Documented by: Magnesium Hydroxide (Milk Of Magnesia) 30 ml PO BID PRN PRN Reason: Constipation Ondansetron HCl (Zofran Odt) 4 mg PO Q6H PRN PRN Reason: Nausea/Vomiting Pantoprazole Sodium (Protonix Iv) 40 mg IVPUSH Q24H [facility] Last Admin: 05/05/20 10:00 Dose: 40 mg Documented by: Pregabalin (Lyrica) 100 mg PO TID [facility] Last Admin: 05/05/20 13:40 Dose: 100 mg Documented by: Senna/Docusate Sodium (Senna Plus) 1 tab PO BID PRN PRN Reason: Constipation Last Admin: 05/04/20 10:18 Dose: 1 tab Documented by: Sodium Chloride (Saline Flush) 10 ml FLUSH ASDIRECTED PRN PRN Reason: IV Use Last Admin: 05/04/20 14:04 Dose: 10 ml Documented by: Timolol Maleate (Timoptic 0.5% Ophth Soln) 1 ml EYEBOTH DAILY [facility] Last Admin: 05/05/20 09:00 Dose: 1 drop Documented by: Zinc Sulfate (Zincate) 220 mg PO DAILY [facility] Last Admin: 05/05/20 10:52 Dose: 220 mg Documented by: Discontinued Medications Acetaminophen (Tylenol) 1,000 mg PO Q6H PRN PRN Reason: analgesia/fever Acetaminophen (Tylenol Extra Strength) 1,000 mg PO Q6H PRN PRN Reason: analgesia/fever Aspirin (Aspirin) 324 mg PO ONETIME ONE Stop: 04/30/20 17:48 Last Admin: 04/30/20 17:56 Dose: 324 mg Documented by: Dexamethasone (Decadron) 8 mg IVPUSH ONETIME ONE Stop: 04/30/20 17:48 Last Admin: 04/30/20 17:57 Dose: 8 mg Documented by: Dexamethasone (Decadron) 8 mg IVPUSH DAILY [facility] Last Admin: 05/02/20 10:54 Dose: Not Given Documented by: Enoxaparin Sodium (Lovenox) 100 mg SUBCUT ONETIME ONE Stop: 04/30/20 18:41 Last Admin: 04/30/20 18:57 Dose: 100 mg Documented by: Enoxaparin Sodium (Lovenox) 100 mg SUBCUT Q12H [facility] Last Admin: 05/01/20 06:15 Dose: 100 mg Documented by: Sodium Chloride (Normal Saline) 1,000 mls @ 999 mls/hr IV ASDIRECTED [facility] Last Infusion: 04/30/20 18:57 Dose: 500 mls/hr Documented by: Sodium Chloride (Normal Saline) 1,000 mls @ 500 mls/hr IV ASDIRECTED [facility] Last Admin: 04/30/20 22:36 Dose: 500 mls/hr Documented by: Remdesivir 200 mg/ Sodium (Chloride) 250 mls @ 200 mls/hr IV ONETIME ONE Stop: 04/30/20 20:10 Last Admin: 04/30/20 20:26 Dose: 200 mls/hr Documented by: Sodium Chloride (Normal Saline) 1,000 mls @ 125 mls/hr IV ASDIRECTED [facility] Last Admin: 05/01/20 08:20 Dose: 125 mls/hr Documented by: Lactated Ringer's (Ringers, Lactated) 1,000 mls @ 75 mls/hr IV ASDIRECTED [facility] Last Admin: 05/03/20 23:06 Dose: 125 mls/hr Documented by: - Exam General: Alert, Oriented, Cooperative, No Acute Distress HEENT: Other (Facial features more puffy today as well has hands. ) Lungs: Normal Respiratory Effort, Crackles (course crackles throughout), Wheezing (upper lobes) Cardiovascular: Regular Rate, Regular Rhythm GI/Abdominal Exam: Soft, Non-Tender, No Distention, Abnormal Bowel Sounds (hypoactive to normal x 4. ) Extremities: No Pedal Edema Sepsis Event Note - Evaluation Sepsis Screening Result: No Definite Risk - Focused Exam Vital Signs: Vital Signs Temp Pulse Resp BP BP Pulse Ox 05/05/20 10:53 141/64 H 05/05/20 07:54 97.5 F 94 22 H 141/83 H 98 05/05/20 06:00 97.2 F 91 20 147/74 H 95 - Problem List & Annotations (1) COVID-19 virus infection SNOMED Code(s): 877483919 Code(s): U07.1 - COVID-19 Status: Acute Current Visit: No Onset Date: ~04/22/20 Annotation/Comment:: Completed Dexamethasone course. [place] nebs bid while here, will go home with Breo daily. Her oxygen at rest is in the high 90s, walks and desaturated to 87% recovered at 93% with 2L. Qualified for home oxygen, not heard back from [facility] to set up home oxygen therapy. Orly with [facility] called and said she could check on her tomorrow if needed. (2) Viral pneumonia SNOMED Code(s): 28035577 Code(s): J12.9 - VIRAL PNEUMONIA, UNSPECIFIED Status: Acute Current Visit: Yes (3) Elevated d-dimer SNOMED Code(s): 515741125 Code(s): R79.89 - OTHER SPECIFIED ABNORMAL FINDINGS OF BLOOD CHEMISTRY Status: Acute Current Visit: Yes Annotation/Comment:: Aspirin 81 mg daily to go home with. (4) Chronic kidney disease, stage 4 (severe) SNOMED Code(s): 314850597 Code(s): N18.4 - CHRONIC KIDNEY DISEASE, STAGE 4 (SEVERE) Status: Chronic Current Visit: Yes Annotation/Comment:: Encourage water intake. (5) Chronic low back pain SNOMED Code(s): 681353074 Code(s): M54.5 - LOW BACK PAIN; G89.29 - OTHER CHRONIC PAIN Status: Chronic Current Visit: No Qualifiers: Back pain laterality: bilateral Sciatica presence: unspecified whether sciatica present Qualified Code(s): M54.5 - Low back pain; G89.29 - Other chronic pain Annotation/Comment:: Lay on left or right side when in bed to help her back pain. (6) Constipation SNOMED Code(s): 25361175 Code(s): K59.00 - CONSTIPATION, UNSPECIFIED Status: Chronic Current Visit: No Qualifiers: Constipation type: unspecified constipation type Qualified Code(s): K59.00 - Constipation, unspecified Annotation/Comment:: Daughter is going to bring in some food that she knows her mom likes, she has complained that all our food tastes sweet. Continue to encourage oral intake. 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 (8) Hypertension SNOMED Code(s): 02907957 Code(s): I10 - ESSENTIAL (PRIMARY) HYPERTENSION Status: Chronic Current Visit: No Qualifiers: Hypertension type: essential hypertension Qualified Code(s): I10 - Essential (primary) hypertension (9) Vomiting SNOMED Code(s): 939537020 Code(s): R11.10 - VOMITING, UNSPECIFIED Status: Resolved Current Visit: No Qualifiers: Vomiting type: unspecified Vomiting Intractability: non-intractable Nausea presence: with nausea Qualified Code(s): R11.2 - Nausea with vomiting, unspecified (10) Dehydration SNOMED Code(s): 85366974 Code(s): E86.0 - DEHYDRATION Status: Resolved Current Visit: Yes Annotation/Comment:: resolved. saline lock (11) Hypoxia SNOMED Code(s): 555582531 Code(s): R09.02 - HYPOXEMIA Status: Resolved Current Visit: Yes Annotation/Comment:: Does not qualify for home oxygen (12) Nausea alone SNOMED Code(s): 383732842 Code(s): R11.0 - NAUSEA Status: Resolved Current Visit: Yes - Problem List Review Problem List Initiated/Reviewed/Updated: Yes - My Orders Last 24 Hours: My Active Orders 05/05/20 10:50 RT Aerosol Therapy [RC] ASDIRECTED Budesonide [Pulmicort] 0.5 mg NEB BIDRT - Plan Plan:: 1. COVID: Completed Dexamethasone, facial puffiness most likely secondary to steroids. Discontinue saline lock. Qualified for home oxygen but have yet to hear back from them so discharge will be postponed a day, [facility] will be checking on patient tomorrow once discharged. 2. Diet: Consistent carb diet. 3. DM: Accuchecks qid&ac, Lantus 38 units at bedtime, sliding scale, her sugars have started to trend down, will go home with home Lantus dose and have [facility] check on her sugars. 4. DVT prophylaxis: Lovenox 0.5 mg/kg daily adjusted for kidney function. Will go home with aspirin. 5. Discharge tomorrow.
[2020-05-05] MEDS: Insulin Glargine,Human Rec. Analog 100 Units/ML 3 ML Pen SUBCUT SCH (20:45)
[2020-05-05] MEDS: Latanoprost 0.005% Ophth Soln 2.5 ML Bottle EYEBOTH SCH (20:47)
[2020-05-05] MEDS ORDERED: Pantoprazole 40 MG Tab.CR ONE (21:26)
[2020-05-06] MEDS ORDERED: Pantoprazole 40 MG Tab.CR PO SCH (06:00)
[2020-05-06] MEDS: Budesonide 0.5 MG/2 ML Neb Susp NEB SCH (06:13)
[2020-05-06] MEDS: Insulin Lispro 100 Unit/ML 3 ML KwikPen SUBCUT SCH ×2 (08:21→11:23)
[2020-05-06] MEDS: Pregabalin 100 MG Cap PO SCH (10:15)
[2020-05-06] MEDS: DULoxetine 60 MG Cap PO SCH (10:15)
[2020-05-06] MEDS: Acetaminophen 500 MG Tab PO SCH (10:15)
[2020-05-06] MEDS: atorvaSTATin 20 MG Tab PO SCH (10:15)
[2020-05-06] MEDS: Zinc Sulfate 220 MG Cap PO SCH (10:15)
[2020-05-06] MEDS: Enoxaparin 60 MG/0.6 ML Syringe SUBCUT SCH (10:16)
[2020-05-06] MEDS: Ascorbic Acid 500 MG Tab PO SCH (10:16)
[2020-05-06] MEDS: Ferrous Sulfate 325 MG Tab PO SCH (10:16)
[2020-05-06] MEDS: Lisinopril 20 MG Tab PO SCH (10:17)
[2020-05-06] MEDS: Timolol Maleate 0.5% Ophth Soln 5 ML Bottle EYEBOTH SCH (10:17)
--- NOTE | 2020-05-06 11:04 | PCM.DCSUM1 ---
Discharge Summary - Hospital Course HPI Initial Comments: Elissa presented to ER yesterday for worsening shortness of breath, nausea, vomiting, decreased appetite. She was seen in ER on 04/22 for 3 day history of sinus congestion, body aches, cough and was positive for Covid, she had negative chest x-ray at that time, was saturating at 97% on Room air, received IV fluids and discharged home. Returned last night with worsening symptoms that started on Saturday 04/28, desaturated to 80% in ER, was placed on 2L of oxygen. She did receive dose of Remdesivir in ER but not continued on the floor due to her kidney function is <30. She also was started in ER on Lovenox 100 mg q12, based on her GFR she will be changed to 0.5 mg/kg daily. D Dimer was 1.23. CBC 12.8. CT chest showed bilateral ground glass opacities scattered throughout all lobes bilaterally, consistent with Covid-19 pneumonia. History of Diabetes on insulin, Chronic Kidney Disease, obesity, Glaucoma. Diagnosis: Stroke: No - Discharge Data Discharge Date: 05/06/20 ([facility]) Discharge Disposition: Home, W Home Health Agency 06 Condition: Stable - Referral to Home Health Date of Face to Face Encounter: 05/05/20 Reason for Homebound Status: Obesity, CKD, DM, Covid-19 Primary Care Physician: Ritika Wright NP Skilled Need: Nursing to help with medications, insulin. - Discharge Diagnosis/Problem(s) (1) COVID-19 virus infection SNOMED Code(s): 988313120 ICD Code: U07.1 - COVID-19 Status: Acute Current Visit: No Onset Date: ~04/22/20 Problem Details: Completed Dexamethasone course. [place] nebs bid while here, will go home with Breo daily. Her oxygen at rest is in the high 90s, walks and desaturated to 87% recovered at 93% with 2L. Qualified for home oxygen, [facility] delivered home oxygen therapy here to hospital, daughter will picker packer when she gets her. Orly with [facility] will check on today. (2) Viral pneumonia SNOMED Code(s): 47043604 ICD Code: J12.9 - VIRAL PNEUMONIA, UNSPECIFIED Status: Acute Current Visit: Yes Problem Details: Improving (3) Elevated d-dimer SNOMED Code(s): 071352183 ICD Code: R79.89 - OTHER SPECIFIED ABNORMAL FINDINGS OF BLOOD CHEMISTRY Status: Acute Current Visit: Yes Problem Details: Aspirin 81 mg daily to go home with. (4) Chronic kidney disease, stage 4 (severe) SNOMED Code(s): 625464208 ICD Code: N18.4 - CHRONIC KIDNEY DISEASE, STAGE 4 (SEVERE) Status: Chronic Current Visit: Yes Problem Details: Encourage water intake. (5) Chronic low back pain SNOMED Code(s): 407888403 ICD Code: M54.5 - LOW BACK PAIN; G89.29 - OTHER CHRONIC PAIN Status: Chronic Current Visit: No Problem Details: Lay on left or right side when in bed to help her back pain. Qualifiers: Back pain laterality: bilateral Sciatica presence: unspecified whether sciatica present Qualified Code(s): M54.5 - Low back pain; G89.29 - Other chronic pain (6) Constipation SNOMED Code(s): 13279092 ICD Code: K59.00 - CONSTIPATION, UNSPECIFIED Status: Chronic Current Visit: No Problem Details: Continue to encourage oral intake. Qualifiers: Constipation type: unspecified constipation type Qualified Code(s): K59.00 - Constipation, unspecified (7) DM2 (diabetes mellitus, type 2) SNOMED Code(s): 30178283 ICD Code: E11.9 - TYPE 2 DIABETES MELLITUS WITHOUT COMPLICATIONS Status: Chronic Current Visit: No Problem Details: Continue current outpatient meds. Qualifiers: Diabetes mellitus [facility] insulin use: with terminal press operator use Diabetic retinopathy severity: with mild nonproliferative retinopathy Diabetes mellitus macular edema: without macular edema (8) Hypertension SNOMED Code(s): 35364172 ICD Code: I10 - ESSENTIAL (PRIMARY) HYPERTENSION Status: Chronic Current Visit: No Qualifiers: Hypertension type: essential hypertension Qualified Code(s): I10 - Essential (primary) hypertension (9) Vomiting SNOMED Code(s): 468949506 ICD Code: R11.10 - VOMITING, UNSPECIFIED Status: Resolved Current Visit: No Qualifiers: Vomiting type: unspecified Vomiting Intractability: non-intractable Nausea presence: with nausea Qualified Code(s): R11.2 - Nausea with vomiting, unspecified (10) Dehydration SNOMED Code(s): 80904793 ICD Code: E86.0 - DEHYDRATION Status: Resolved Current Visit: Yes Problem Details: resolved. (11) Hypoxia SNOMED Code(s): 002385172 ICD Code: R09.02 - HYPOXEMIA Status: Resolved Current Visit: Yes Problem Details: Does qualify for home oxygen, [facility] brought home oxygen to hospital, daughter will picker packer when she comes to get her mom. (12) Nausea alone SNOMED Code(s): 232804007 ICD Code: R11.0 - NAUSEA Status: Resolved Current Visit: Yes - Patient Summary/Data Hospital Course: Admitted for worsening Covid, found to have bilateral pneumonia all lobes affected on CT. Received 1 dose of Remdesivir in ER, was discontinued next morning due to her kidney function. Continued on Dexamethasone but dose changed from 8 mg daily to 6 mg daily, received 6 doses total. She had nausea & vomiting on admission so initially she was kept NPO and given IVF. Her sodium and chloride elevated on 05/01 so her fluids were changed to Lactated ringers. Her diet was advanced from clears to Consistent carb diet by 05/02. Once she was eating, started her on Humalog sliding scale, initially required 8 units and 6 units with meals by time of discharge she was down to 2 units with some meals, Thursday breakfast she did not require any additional units. Will go home with Lantus 38 units at bedtime with home health nurse monitoring. Her appetite has been poor, stated every tasted sweet. Her labs continued to improve, Cr came down to 1.4. She started having increased edema of face, hands & feet so IV was saline locked. Budesonide nebs were started 05/05 as she was having more wheezi ng. She had been evaluated for home oxygen on , did not desaturate with walking at that time. On Thursday, she did desaturate with walking, down to 87% so sent order in for home oxygen, discharge was held until today. [facility] dropped off oxygen supplies here and daughter will picker packer when she gets her mom. Her D-Dimer was slightly elevated on admission, Cr was elevated so CTA was not able to be done. Lovenox 100 mg was given initially in ER but changed to 0.5 mg/kg daily dosing due to her kidneys, she did get 2 doses of Lovenox 100 mg before decreasing to 50 mg daily. Will go home with Aspirin 81 mg adjusted for her kidneys. She required more assistance yesterday, at one point, 3 person assist due to a weak episode in the bathroom, today she is ambulating with just standby assist. [facility] will be stopping today to assess patient once she is home. - Patient Instructions Diet: Diabetic Diet Activity: As Tolerated Driving: Do Not Drive Showering/Bathing: May Shower Notify Provider of: Fever, Nausea and/or Vomiting (shortness of breath or chest pain) Other/Special Instructions: Follow up with Ritika Wright in 1 week or sooner if Home health nurse feels warranted. Her sugars may elevated for a few days as the steriod(Dexamethasone) she received in hospital will take about 10 days to clear out of her system. Breo inhaler was ordered to help with her breathing, use daily until her breathing is back to normal. Pharmacist will show you how to use when you picker packer. - Discharge Plan *PRESCRIPTION DRUG MONITORING PROGRAM REVIEWED*: Not Applicable *COPY OF PRESCRIPTION DRUG MONITORING REPORT IN PATIENT KEON: Not Applicable Prescriptions/Med Rec: Fluticasone/Vilanterol [Breo Ellipta 100-25 MCG Inhalation Kit] 1 each IH DAILY 30 Days #1 [email or web address] Home Medications: Home Meds Insulin Glarg,Human.Rec.Analog [Lantus] 38 units SQ BEDTIME 03/01/18 [History] Acetaminophen [Tylenol Extra Strength] 1,000 mg PO TID 03/02/18 [History] Aspirin [Halfprin] 81 mg PO DAILY 03/02/18 [History] Latanoprost [Xalatan 0.005% Ophth Soln] 1 drop EYEBOTH BEDTIME 12/07/18 [History] Propylene Glycol [Systane Balance] 1 drop EYEBOTH Q4H PRN 12/07/18 [History] Ondansetron [Zofran ODT] 4 mg PO Q6H PRN #10 tab.dis 04/22/20 [Rx] DULoxetine [Cymbalta] 60 mg PO DAILY 05/01/20 [History] Ferrous Fumarate/Vitamin C [Vitron-C] 1 tab PO DAILY 05/01/20 [History] Pregabalin [Lyrica] 100 mg PO TID 05/01/20 [History] Timolol [Betimol 0.5% Ophth Soln] 1 drop EYEBOTH DAILY 05/01/20 [History] atorvaSTATin [Lipitor] 20 mg PO DAILY 05/01/20 [History] lisinopriL [Lisinopril] 20 mg PO DAILY 05/01/20 [History] Fluticasone/Vilanterol [Breo Ellipta 100-25 MCG Inhalation Kit] 1 each IH DAILY 30 Days #1 aerjuba 05/05/20 [Rx] Oxygen Therapy Mode: Nasal Cannula Oxygen Flow Rate (L/min): 2 Maintain SPO2% less than: 95 Maintain SpO2% greater than: 88 Patient Handouts: Rehydration, Adult, Chronic Kidney Disease, Adult, [id number], Fall Prevention in Hospitals, Adult, Coronavirus Information 08/08/19, Deep Vein Thrombosis Forms: ED Department Discharge Referrals: Ritika Wright NP [Primary Care Provider] - - Discharge Summary/Plan Comment DC Time >30 min.: Yes - General Info Date of Service: 05/06/20 Subjective Update: Breathing better today, not as weak, nurse walked beside her today, did not require assistance as she did yesterday. No nausea or vomiting. Coughing more today. States food is still too sweet. Slept better last night. A little anxious about going home, that her grandkids are not gonna let her rest. Her daughter stated they would let her rest. She had talked to her this morning and felt she sounded better and stronger and that she wanted to come home. She does have inhaler and oxygen to go home on, reassured her that she would rest and eat better at home which would help her get stronger. - Patient Data Vitals - Most Recent: Last Vital Signs Temp 97.0 F 05/06/20 06:10 Pulse 82 05/06/20 06:10 Resp 20 05/06/20 06:10 BP 148/69 H 05/06/20 10:17 Pulse Ox 96 05/06/20 06:13 Weight - Most Recent: 218 lb 6 oz Lab Results - Last 24 hrs: Laboratory Results - last 24 hr 05/05/20 05/05/20 05/06/20 Range/Units 17:39 20:41 05:53 POC Glucose 199 H 276 H 161 H (74-100) mg/dL Med Orders - Current: Current Medications Acetaminophen (Tylenol Extra Strength) 1,000 mg PO TID [facility] Last Admin: 05/06/20 10:15 Dose: 1,000 mg Documented by: Artificial Tears (Liquitears 1.4% Ophth Soln) 0 ml EYEBOTH Q4H PRN PRN Reason: Dry Eyes Ascorbic Acid (Vitamin C) 500 mg PO BID [facility] Last Admin: 05/06/20 10:16 Dose: 500 mg Documented by: Atorvastatin Calcium (Lipitor) 20 mg PO DAILY [facility] Last Admin: 05/06/20 10:15 Dose: 20 mg Documented by: Budesonide (Pulmicort) 0.5 mg NEB BIDRT [facility] Last Admin: 05/06/20 06:13 Dose: 0.5 mg Documented by: Duloxetine HCl (Cymbalta) 60 mg PO DAILY [facility] Last Admin: 05/06/20 10:15 Dose: 60 mg Documented by: Enoxaparin Sodium (Lovenox) 50 mg SUBCUT DAILY [facility] Last Admin: 05/06/20 10:16 Dose: 50 mg Documented by: Ferrous Sulfate (Ferrous Sulfate) 325 mg PO DAILY [facility] Last Admin: 05/06/20 10:16 Dose: 325 mg Documented by: Glucagon (Glucagen) 1 mg IM ASDIRECTED PRN PRN Reason: Hypoglycemia Ibuprofen (Motrin) 200 mg PO Q6H PRN PRN Reason: Pain Last Admin: 05/04/20 10:02 Dose: 200 mg Documented by: Insulin Glargine (Lantus Solostar) 38 units SUBCUT BEDTIME [facility] Last Admin: 05/05/20 20:45 Dose: 38 units Documented by: Insulin Human Lispro (Humalog) 0 unit SUBCUT TIDMEALS [facility]; Protocol Last Admin: 05/06/20 08:21 Dose: 2 units Documented by: Latanoprost (Xalatan 0.005% Ophth Soln) 0 ml EYEBOTH BEDTIME [facility] Last Admin: 05/05/20 20:47 Dose: 1 drop Documented by: Lisinopril (Prinivil) 20 mg PO DAILY [facility] Last Admin: 05/06/20 10:17 Dose: 20 mg Documented by: Magnesium Hydroxide (Milk Of Magnesia) 30 ml PO BID PRN PRN Reason: Constipation Ondansetron HCl (Zofran Odt) 4 mg PO Q6H PRN PRN Reason: Nausea/Vomiting Pantoprazole Sodium (Protonix) 40 mg PO 0600 [facility] Last Admin: 05/06/20 05:49 Dose: 40 mg Documented by: Pregabalin (Lyrica) 100 mg PO TID [facility] Last Admin: 05/06/20 10:15 Dose: 100 mg Documented by: Senna/Docusate Sodium (Senna Plus) 1 tab PO BID PRN PRN Reason: Constipation Last Admin: 05/04/20 10:18 Dose: 1 tab Documented by: Sodium Chloride (Saline Flush) 10 ml FLUSH ASDIRECTED PRN PRN Reason: IV Use Last Admin: 05/04/20 14:04 Dose: 10 ml Documented by: Timolol Maleate (Timoptic 0.5% Ophth Soln) 1 ml EYEBOTH DAILY [facility] Last Admin: 05/06/20 10:17 Dose: 1 drop Documented by: Zinc Sulfate (Zincate) 220 mg PO DAILY [facility] Last Admin: 05/06/20 10:15 Dose: 220 mg Documented by: Discontinued Medications Acetaminophen (Tylenol) 1,000 mg PO Q6H PRN PRN Reason: analgesia/fever Acetaminophen (Tylenol Extra Strength) 1,000 mg PO Q6H PRN PRN Reason: analgesia/fever Aspirin (Aspirin) 324 mg PO ONETIME ONE Stop: 04/30/20 17:48 Last Admin: 04/30/20 17:56 Dose: 324 mg Documented by: Dexamethasone (Decadron) 8 mg IVPUSH ONETIME ONE Stop: 04/30/20 17:48 Last Admin: 04/30/20 17:57 Dose: 8 mg Documented by: Dexamethasone (Decadron) 8 mg IVPUSH DAILY [facility] Last Admin: 05/02/20 10:54 Dose: Not Given Documented by: Dexamethasone (Decadron) 6 mg IVPUSH DAILY [facility] Last Admin: 05/05/20 09:00 Dose: 6 mg Documented by: Dextrose/Water (Dextrose 50% In Water) 50 ml IVPUSH ASDIRECTED PRN PRN Reason: Hypoglycemia Enoxaparin Sodium (Lovenox) 100 mg SUBCUT ONETIME ONE Stop: 04/30/20 18:41 Last Admin: 04/30/20 18:57 Dose: 100 mg Documented by: Enoxaparin Sodium (Lovenox) 100 mg SUBCUT Q12H [facility] Last Admin: 05/01/20 06:15 Dose: 100 mg Documented by: Sodium Chloride (Normal Saline) 1,000 mls @ 999 mls/hr IV ASDIRECTED [facility] Last Infusion: 04/30/20 18:57 Dose: 500 mls/hr Documented by: Sodium Chloride (Normal Saline) 1,000 mls @ 500 mls/hr IV ASDIRECTED [facility] Last Admin: 04/30/20 22:36 Dose: 500 mls/hr Documented by: Remdesivir 200 mg/ Sodium (Chloride) 250 mls @ 200 mls/hr IV ONETIME ONE Stop: 04/30/20 20:10 Last Admin: 04/30/20 20:26 Dose: 200 mls/hr Documented by: Sodium Chloride (Normal Saline) 1,000 mls @ 125 mls/hr IV ASDIRECTED [facility] Last Admin: 05/01/20 08:20 Dose: 125 mls/hr Documented by: Lactated Ringer's (Ringers, Lactated) 1,000 mls @ 75 mls/hr IV ASDIRECTED [facility] Last Admin: 05/03/20 23:06 Dose: 125 mls/hr Documented by: Pantoprazole Sodium (Protonix Iv) 40 mg IVPUSH Q24H [facility] Last Admin: 05/05/20 10:00 Dose: 40 mg Documented by: Pantoprazole Sodium (Protonix) Confirm Administered Dose 40 mg .ROUTE .STK- MED ONE Stop: 05/05/20 21:27 Last Admin: 05/06/20 00:49 Dose: Not Given Documented by: - Exam Quality Assessment: Reports: Supplemental Oxygen General: Reports: Alert, Oriented, Cooperative, No Acute Distress Lungs: Reports: Clear to Auscultation, Normal Respiratory Effort, Crackles (throughout, improved air entry). Denies: Wheezing Cardiovascular: Reports: Regular Rate, Regular Rhythm GI/Abdominal Exam: Normal Bowel Sounds, Soft, Non-Tender, No Distention Extremities: No Pedal Edema, Pedal Edema, Other (Edema in her hands has improved)
== END 2020-05-06 12:00 | disposition home health service (06) | DRG 177 ==
LOC: FB.ED 17:23 → FB.MS 19:23
PROVIDERS: ADMIT Family Medicine; ATTEND Family Medicine
PROC: XW033E5 Introduction of Remdesivir Anti-infective into Peripheral Vein, Percutaneous Approach, New Technology Group 5 (ICD-10-PCS; principal; 2020-04-30)
DX: U07.1 COVID-19 (principal); R09.02 Hypoxemia; J12.89 Other viral pneumonia; I12.9 Hypertensive chronic kidney disease with stage 1 through stage 4 chronic kidney disease, or unspecified chronic kidney disease; N18.4 Chronic kidney disease, stage 4 (severe); R79.89 Other specified abnormal findings of blood chemistry; G89.29 Other chronic pain; M54.5 Low back pain; K59.00 Constipation, unspecified; E11.3299 Type 2 diabetes mellitus with mild nonproliferative diabetic retinopathy without macular edema, unspecified eye; E86.0 Dehydration; H54.7 Unspecified visual loss; H40.9 Unspecified glaucoma; K59.09 Other constipation; K21.9 Gastro-esophageal reflux disease without esophagitis; K42.9 Umbilical hernia without obstruction or gangrene; M19.90 Unspecified osteoarthritis, unspecified site; F32.9 Major depressive disorder, single episode, unspecified; E11.22 Type 2 diabetes mellitus with diabetic chronic kidney disease; Z79.82 Long term (current) use of aspirin; Z79.4 Long term (current) use of insulin; Z79.899 Other long term (current) drug therapy; Z87.442 Personal history of urinary calculi; Z98.49 Cataract extraction status, unspecified eye; Z90.49 Acquired absence of other specified parts of digestive tract
CPT/HCPCS: 36415; 71250; 80048; 80053; 80076; 82962; 85025; 85379; 85610; 86140; 94150; 94640; 94760; 96372; 96374; 99284; 99285-25; A9270-GY; C9113; J1100; J1650; J1815; J1815-GY; J7030; J7050; J7120

== ENCOUNTER 2020-05-07 17:57 | Emergency (ER) | payer MEDICARE, MEDICAID ==
[2020-05-07] MEDS ORDERED: Propofol 200 MG/20 ML SDV IV ONE (17:58)
[2020-05-07] MEDS ORDERED: Succinylcholine 200 MG/10 ML MDV IV ONE (17:58)
[2020-05-07] MEDS ORDERED: Rocuronium 100 MG/10 ML MDV IV ONE (17:58)
[2020-05-07] MEDS ORDERED: Midazolam 1 MG/ML 2 ML SDV IV ONE (17:58)
[2020-05-07] MEDS ORDERED: Sodium Chloride 0.9% 10 ML Syringe FLUSH PRN (18:09)
[2020-05-07] MEDS ORDERED: LORazepam 2 MG/ML SDV IVPUSH STA (18:10)
[2020-05-07] MEDS ORDERED: LORazepam 2 MG/ML SDV ONE (18:10)
[2020-05-07] MEDS ORDERED: Cefepime 2 GM Vial IVPUSH STA (18:43)
[2020-05-07 18:50] LABS: BASE EXCESS VENOUS,POC -8 mmol/L (-2-3); HCO3 VENOUS,POC 18 mmol/L (21-29); PCO2 VENOUS,POC 31 mmHg (41-51); PH VENOUS,POC 7.37 pH Units (7.32-7.43)
--- NOTE | 2020-05-07 18:52 | EDM.PDOC ---
ED HPI GENERAL MEDICAL PROBLEM - General Time Seen by Provider: 05/07/20 18:00 Source of Information: Reports: EMS, Family History Limitations: Reports: Altered Mental Status - History of Present Illness INITIAL COMMENTS - FREE TEXT/NARRATIVE: Patient presented to the ED because of post covid hypoxemia. She was diagnosed with Covid 04/20/20 and was seen in the ED on 04/22. She was then given fluids, steroids and was discharged to home. She presented to the ED again on 04/28/20 because of increasing dyspnea. She was admitted at [facility] for 8 days where she received oxygen, dexamethasone , and a dose of remdesivir. She was discharged on 05/06/20 with oxygen and dexamethasone and today she had sudden onset of respiratory distress and she was hypoxemic and tachypneic when EMS arrived at the scene with oxygen saturation of 50's and RR of 40's. - Related Data Allergies Allergy/AdvReac Type Severity Reaction Status Date / Time No Known Allergies Allergy Verified 04/24/20 17:05 Home Meds: Home Meds Insulin Glarg,Human.Rec.Analog [Lantus] 38 units SQ BEDTIME 03/01/18 [History] Acetaminophen [Tylenol Extra Strength] 1,000 mg PO TID 03/02/18 [History] Aspirin [Halfprin] 81 mg PO DAILY 03/02/18 [History] Latanoprost [Xalatan 0.005% Ophth Soln] 1 drop EYEBOTH BEDTIME 12/07/18 [History] Propylene Glycol [Systane Balance] 1 drop EYEBOTH Q4H PRN 12/07/18 [History] Ondansetron [Zofran ODT] 4 mg PO Q6H PRN #10 tab.dis 04/22/20 [Rx] DULoxetine [Cymbalta] 60 mg PO DAILY 05/01/20 [History] Ferrous Fumarate/Vitamin C [Vitron-C] 1 tab PO DAILY 05/01/20 [History] Pregabalin [Lyrica] 100 mg PO TID 05/01/20 [History] Timolol [Betimol 0.5% Ophth Soln] 1 drop EYEBOTH DAILY 05/01/20 [History] atorvaSTATin [Lipitor] 20 mg PO DAILY 05/01/20 [History] lisinopriL [Lisinopril] 20 mg PO DAILY 05/01/20 [History] Fluticasone/Vilanterol [Breo Ellipta 100-25 MCG Inhalation Kit] 1 each IH DAILY 30 Days #1 [email or web address] 05/05/20 [Rx] Past Medical History HEENT History: Reports: Cataract, Glaucoma, Impaired Vision Cardiovascular History: Reports: Hypertension Respiratory History: Reports: None Gastrointestinal History: Reports: Chronic Constipation, GERD Other Gastrointestinal History: Periumbilicial hernia. States she has "liver" problems. Genitourinary History: Reports: Chronic Renal Insuffiency, Renal Calculus Other Genitourinary History: Patient tells us she is now stage 4 kidney failure. 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 Neurological History: Reports: Neuropathy, Peripheral Other Neuro History: Fracture of L1. Psychiatric History: Reports: Depression Endocrine/Metabolic History: Reports: Diabetes, Type II Hematologic History: Reports: None Immunologic History: Reports: None Oncologic (Cancer) History: Reports: None Dermatologic History: Reports: None - Infectious Disease History Infectious Disease History: Reports: Chicken Pox, Measles, Mumps, Novel Coronavirus, Other (See Below) Other Infectious Disease History: Covid positive, March 2020. - Past Surgical History Head Surgeries/Procedures: Reports: None HEENT Surgical History: Reports: Cataract Surgery Cardiovascular Surgical History: Reports: Varicose Respiratory Surgical History: Reports: None GI Surgical History: Reports: Cholecystectomy Female Surgical History: Reports: Section Endocrine Surgical History: Reports: None Musculoskeletal Surgical History: Reports: None Oncologic Surgical History: Reports: None Social & Family History - Family History Family Medical History: No Pertinent Family History - Caffeine Use Caffeine Use: Reports: Coffee, Other Other Caffeine Use: 2-3cups daily - Living Situation & Occupation Living situation: Reports: Other (She lives with her daughter.) Occupation: Retired ED ROS GENERAL - Review of Systems Review Of Systems: See Below Constitutional: Reports: No Symptoms HEENT: Reports: No Symptoms Respiratory: Reports: Shortness of Breath, Wheezing, Cough Cardiovascular: Reports: No Symptoms Endocrine: Reports: No Symptoms GI/Abdominal: Reports: No Symptoms : Reports: No Symptoms Musculoskeletal: Reports: No Symptoms Skin: Reports: No Symptoms Neurological: Reports: No Symptoms ED EXAM, GENERAL - Physical Exam Exam: See Below Exam Limited By: No Limitations General Appearance: Alert, No Apparent Distress Eye Exam: Bilateral Eye: PERRL Ears: Normal External Exam, Normal Canal Nose: Normal Inspection, Normal Mucosa, No Blood Throat/Mouth: Normal Inspection, Normal Lips, Normal Teeth, Normal Gums Head: Atraumatic, Normocephalic Neck: Normal Inspection, Supple, Non-Tender, Full Range of Motion Respiratory/Chest: No Respiratory Distress, Decreased Breath Sounds, Crackles Cardiovascular: Tachycardia GI/Abdominal: Normal Bowel Sounds, No Distention Extremities: Pedal Edema Psychiatric: Normal Affect Skin Exam: Warm Course - Vital Signs Text/Narrative:: Labs/EKG/CXR was discussed with daughter see ACADEMIC SUPPORT COORDINATOR's note for details of intubation Cefepime 2 gm IV x1 Vancomycin 1.5 gm IV x1 Ativan 1 mg IV x1 Patient was not able to tolerate BiPap Case discussed with Dr Burton - Orders/Labs/Meds Orders: Active Orders 24 hr Category Date Time Status EKG Documentation Completion [RC] ASDIRECTED Care 05/07/20 18:16 Ordered Chest 1V Frontal [CR] Stat Exams 05/07/20 18:09 Ordered ABG [BLOOD GAS ARTERIAL] [BG] Stat Lab 05/07/20 18:10 Ordered CBC WITH AUTO DIFF [HEME] Stat Lab 05/07/20 18:09 Ordered COMPREHENSIVE METABOLIC PN,CMP [CHEM] Stat Lab 05/07/20 18:09 Ordered INR,PT,PROTHROMBIN TIME [COAG] Stat Lab 05/07/20 18:09 Ordered PRO B-TYPE NATRIUR PEPT,BNPPRO [CHEM] Stat Lab 05/07/20 18:09 Ordered PTT,PARTIAL THROMBOPLSTIN TIME [COAG] Stat Lab 05/07/20 18:09 Ordered TROPONIN I [CHEM] Stat Lab 05/07/20 18:09 Ordered Sodium Chloride 0.9% [Saline Flush] Med 05/07/20 18:09 Ordered 10 ml FLUSH ASDIRECTED PRN Saline Lock Insert [OM.PC] Routine Oth 05/07/20 18:09 Ordered EKG 12 Lead [EK] Routine Ther 05/07/20 18:16 Ordered Medication Orders Sodium Chloride (Saline Flush) 10 ml FLUSH ASDIRECTED PRN PRN Reason: Keep Vein Open Meds: Medications Generic Name Dose Route Start Last Admin Trade Name Freq PRN Reason Stop Dose Admin Sodium Chloride 10 ml 05/07/20 18:09 Saline Flush FLUSH ASDIRECTED PRN Keep Vein Open Discontinued Medications Generic Name Dose Route Start Last Admin Trade Name Roberto PRN Reason Stop Dose Admin Cefepime HCl 2 gm 05/07/20 18:43 Maxipime IVPUSH 05/07/20 18:44 NOW STA Vancomycin HCl 1.5 gm/ Premix 300 mls @ 300 mls/hr 05/07/20 18:43 IV 05/07/20 18:44 NOW STA Lorazepam 1 mg 05/07/20 18:10 Ativan IVPUSH 05/07/20 18:11 NOW STA Lorazepam Confirm 05/07/20 18:10 Ativan Administered 05/07/20 18:11 Dose 2 mg .ROUTE .STK-MED ONE Departure - Departure Time of Disposition: 18:55 Disposition: Home, Self-Care 01 Condition: Good Clinical Impression: COVID-19, Respiratory failure, Pneumonia - Discharge Information - My Orders Last 24 Hours: My Active Orders 05/07/20 18:09 Chest 1V Frontal [CR] Stat CBC WITH AUTO DIFF [HEME] Stat COMPREHENSIVE METABOLIC PN,CMP [CHEM] Stat INR,PT,PROTHROMBIN TIME [COAG] Stat PRO B-TYPE NATRIUR PEPT,BNPPRO [CHEM] Stat PTT,PARTIAL THROMBOPLSTIN TIME [COAG] Stat TROPONIN I [CHEM] Stat Sodium Chloride 0.9% [Saline Flush] 10 ml FLUSH ASDIRECTED PRN Saline Lock Insert [OM.PC] Routine 05/07/20 18:10 ABG [BLOOD GAS ARTERIAL] [BG] Stat 05/07/20 18:16 EKG Documentation Completion [RC] ASDIRECTED EKG 12 Lead [EK] Routine - Assessment/Plan Last 24 Hours: My Active Orders 05/07/20 18:09 Chest 1V Frontal [CR] Stat CBC WITH AUTO DIFF [HEME] Stat COMPREHENSIVE METABOLIC PN,CMP [CHEM] Stat INR,PT,PROTHROMBIN TIME [COAG] Stat PRO B-TYPE NATRIUR PEPT,BNPPRO [CHEM] Stat PTT,PARTIAL THROMBOPLSTIN TIME [COAG] Stat TROPONIN I [CHEM] Stat Sodium Chloride 0.9% [Saline Flush] 10 ml FLUSH ASDIRECTED PRN Saline Lock Insert [OM.PC] Routine 12/14/20 18:10 ABG [BLOOD GAS ARTERIAL] [BG] Stat 05/07/20 18:16 EKG Documentation Completion [RC] ASDIRECTED EKG 12 Lead [EK] Routine
[2020-05-07] MEDS ORDERED: Vancomycin 1 GM SDV ONE (18:56)
--- NOTE | 2020-05-07 19:06 | CR ---
INDICATION: Dyspnea. CHEST, ONE VIEW: A supine view of the chest was obtained 05/07/20 and compared with 04/22/20 and 08/01/18. There are now noted extensive infiltrates scattered throughout the lungs which would be compatible with COVID pneumonia and should be correlated clinically. The endotracheal tube is approximately 17 mm from the jorge and could be retracted 1 or 2 cm. The heart did not appear enlarged. Overlying EKG leads are noted. The aorta is somewhat tortuous. IMPRESSION: 1. Extensive infiltration is noted compatible with COVID-19 but should be correlated clinically. 2. Endotracheal tube is only 17 mm from the jorge but could be retracted 1 or 2 cm for more ideal positioning. Report was called to Dr. Arauz at 1855 hours. [facility]
[2020-05-07] MEDS ORDERED: Midazolam 1 MG/ML 2 ML SDV ONE (19:07)
[2020-05-07] MEDS ORDERED: Midazolam 1 MG/ML 2 ML SDV IVPUSH ONE (19:09)
== END 2020-05-07 19:30 | disposition home or self-care (01) ==
LOC: FB.ED 17:57
DX: U07.1 COVID-19 (principal); J12.89 Other viral pneumonia; J96.90 Respiratory failure, unspecified, unspecified whether with hypoxia or hypercapnia; I12.9 Hypertensive chronic kidney disease with stage 1 through stage 4 chronic kidney disease, or unspecified chronic kidney disease; E11.22 Type 2 diabetes mellitus with diabetic chronic kidney disease; N18.9 Chronic kidney disease, unspecified; F32.9 Major depressive disorder, single episode, unspecified; E11.42 Type 2 diabetes mellitus with diabetic polyneuropathy; Z79.4 Long term (current) use of insulin; Z79.82 Long term (current) use of aspirin; Z79.899 Other long term (current) drug therapy; Z90.49 Acquired absence of other specified parts of digestive tract
CPT/HCPCS: 31500; 36415; 71045; 80053; 83880; 84484; 85025; 85610; 85730; 93005; 96365; 96375; 99285-25; J0330; J0692; J2060; J2250; J2704; J3370